=== PATIENT | female | born 1960 | race Caucasian/White ===

== ENCOUNTER 2019-12-07 02:26 | Inpatient (IN) | payer OTHER, SELFPAY ==
[2019-12-07] VITALS (47 sets, daily range): BP systolic 112–173; BP diastolic 69–116; PULSE 71–141; RESP 18–34; TEMP 36.4–37.4; O2SAT 86–98; BMI 40.7; BMI 39.9; BMI 40.0; BMI 40.6
--- NOTE | 2019-12-07 02:44 | EKG12_ITS ---
Test Reason : CP Blood Pressure : / mmHG Vent. Rate : 128 BPM Atrial Rate : 153 BPM P-R Int : 000 ms QRS Dur : 076 ms QT Int : 310 ms P-R-T Axes : 000 028 029 degrees QTc Int : 452 ms Atrial fibrillation with rapid ventricular response Low voltage QRS Anterior infarct , possibly acute ACUTE SC / STEMI Abnormal ECG Confirmed by BLANKA CASTREJON, JOSE ([id number]), video editor EMIL SALDANA ([id number]) on 12/08/2019 10:04:05 AM Referred By: Drake Burt Confirmed By:JOSE MOSCOSO MD
--- NOTE | 2019-12-07 02:44 | RAD_ITS ---
STUDY: X-RAY CHEST REASON FOR EXAM: Female, 59 years old. CHEST PAIN -- STEMI TECHNIQUE: Single AP portable view of the chest. COMPARISON: None. FINDINGS: The lungs are normally expanded with fullness of the central vessels which may indicate mild vascular congestion. There is no demonstrated pleural abnormality. There is borderline cardiomegaly. Normal mediastinum and renae. Normal visualized pulmonary arteries. Normal visualized aortic arch and descending thoracic aorta. There are diffuse degenerative changes of the visualized thoracic spine. Normal visualized ribs, clavicles, and shoulders. There is no demonstrated abnormality of the visualized soft tissue structures of the upper abdomen. RAD/Chest 1 View (Portable) IMPRESSION: Possible mild vascular congestion, otherwise no acute process identified. Electronically Signed: Ronda Cooper MD at 3:27 EST , Service support ,
[2019-12-07] MEDS: Aspirin 81 MG TAB.CHEW 324 MG PO (02:49)
--- NOTE | 2019-12-07 02:49 | ED.VIS.CHEST ---
History of Present Illness Chief Complaint: Chest Pain Informant: Patient Onset: Today Activity at onset: Sleep Quality: Heaviness, Tightness Narrative: Patient is a 59-year-old female with no past medical history presenting with chest pain. Patient was seen in the ER as her family member is in the TCU. She woke him from sleep because she was having chest pain. Patient states it feels like there is a band around her chest and tightness. She also has no associated headache. She states that she has some discomfort in her jaw. States she never felt anything like this before. She threw up once prior to arrival. She was taken by nursing staff from the TCU to the emergency room. Patient denies any other complaints at this time. She denies any history of hypertension, diabetes, high cholesterol or heart attack Past Medical History - Allergies and Home Meds Allergies/Adverse Reactions: Allergies No Known Allergies Allergy (Verified 12/07/19 02:32) Past Medical History: None Surgical History: noncontributory Smoking Status: Never smoker Review of Systems General: Denies: Chills, Fever, Sweats Eyes: Denies: Visual changes - bilaterally, Diplopia ENT: Denies: Rhinorrhea, Sore throat Cardiovascular: Reports: Chest pain. Denies: Palpitations, Heart racing Respiratory: Reports: Dyspnea. Denies: Cough, Dyspnea on exertion Gastrointestinal: Denies: Abdominal pain, Nausea, Vomiting, Diarrhea, Melena, Hematochezia Genitourinary: Denies: Dysuria, Hematuria, Frequency Musculoskeletal: Denies: Back pain, Extremity Pain Skin: Denies: Rash, Wounds Neurological: Denies: Headache, Weakness, Numbness Physical Exam Vital Signs/Narrative: Vital Signs Temp Pulse Resp BP Pulse Ox 12/07/19 02:36 124 H 24 H 165/116 H 93 12/07/19 02:28 97.6 F L 121 H 20 H 173/110 H 96 Inital Vital Signs reviewed: Yes General: Well nourished, Well developed, Obese, No Acute Distress Head: Normocephalic, Atraumatic Eyes: Perrl, EOMI ENT: Moist mucous membranes, No rhinorrhea Neck: Supple, Nontender, No JVD Cardiovascular: Regular rate, Regular rhythm, No murmurs Respiratory: No distress, CTA bilaterally, Chest nontender Abdomen: Soft, Nontender, Nondistended, Normal bowel sounds, No masses Back: Nontender, Normal Inspection Extremities: Nontender, No edema Skin: Normal color, No rash. Negative for: Diaphoresis Neurological: Alert, Oriented x3, Cranial nerves II-XII grossly intact, Normal Strength, Normal Sensation Psychological: Normal affect, Normal Mood Diagnostic/Tx/Re-eval Chest X-Ray - ED: 1 View, Read by ED Physician, Read by Radiologist, No Acute Disease Clinical Impression(s) from Imaging Studies Chest X-Ray 12/07/19 02:44 IMPRESSION: Possible mild vascular congestion, otherwise no acute process identified. Electronically Signed: Ronda Cooper MD at 3:27 EST , Service support , Laboratory Data 12/07/19 12/07/19 12/07/19 02:35 02:35 02:35 WBC 9.2 RBC 4.77 Hgb 14.5 Hct 42.9 MCV 89.9 MCH 30.4 MCHC 33.8 RDW Std Deviation 41.6 RDW Coeff of Elsa 12.6 Plt Count 277 MPV 10.2 Immature Gran % (Auto) 0.300 Neut % (Auto) 61.0 Lymph % (Auto) 29.7 [place] % (Auto) 6.4 Eos % (Auto) 1.9 Baso % (Auto) 0.7 Absolute Neuts (auto) 5.6 Absolute Lymphs (auto) 2.72 Nucleated RBC % 0 PT 13.5 INR 1.1 APTT 25.8 Sodium 141 Potassium 3.5 Chloride 108 H Carbon Dioxide 26.0 Anion Gap 7 BUN 9 Creatinine 0.76 Estim Creat Clear Calc 76.45 Est GFR (MDRD) Af Amer 101 Est GFR (MDRD) Non-Af 83 BUN/Creatinine Ratio 11.8 Glucose 148 H Calcium 8.8 Troponin I 1.620 H* - Rhythm Strip Rhythm Strip: A-fib Rate: 128 Ectopy: None - EKG Initial EKG Interpretation: Atrial Fibrillation, - - Atriral Fibrillation with RVR at a rate of 128 Normal QRS QTc 452 ST elevation in V4 to through V4 There is no reciprocal ST segment changes No prior EKG available for comparison Treatment: Aspirin, Beta Kevin IV - Medical Decision Making Patient is evaluated for sudden onset of chest pain. She appears nontoxic and in no acute distress. She is in atrial fibrillation with RVR. EKG shows ST segment elevations in V2 through V4. She does not have any reciprocal changes I am concerned that this could be all rate related change. Did call cardiology on-call, Dr. Burt, who felt that this could represent a Tocco Subu cardiomyopathy but did recommend taking patient to the Brokerage Manager for emergent catheterization. At this point STEMI alert is called. Patient is ordered to heparin and Brilinta. She is also ordered metoprolol for rate control pending adequate blood pressure. Patient is agreeable with this plan. She is stable in the emergency room. ED Disposition - Plan for ED Patient: Disposition: Acute Care Hospital [facility] Diagnosis: STEMI (ST elevation myocardial infarction)
[2019-12-07] MEDS: Heparin Injection (Vial) 5,000 UNIT/ML VIAL 6870 UNIT IV (02:51)
[2019-12-07 02:52] LABS: Absolute Lymphocyte Count 2.72 X10^3/uL (0.83-4.51); Absolute Neutrophil Count 5.6 X10^3/uL (2.0-7.7); Basophil# 0.06 X10^3/uL; Basophil% 0.7 % (0-1); Eosinophil# 0.17 X10^3/uL; Eosinophils% 1.9 % (0-5); Hematocrit 42.9 % (37-47); Hemoglobin 14.5 g/dL (12.0-15.0); Lymphocyte # 2.72 X10^3/ul (4.0); Lymphocyte % 29.7 % (19-41); Mean Corp Hgb Conc 33.8 g/dL (32-36); Mean Corpuscular Hgb 30.4 pg (27.0-32.0); Mean Corpuscular Volume 89.9 fL (81-99); Mean Platelet Vol. 10.2 fl (6.2-12.0); Monocyte# 0.59 X10^3/uL; Monocyte% 6.4 % (0-10); NRBC Flagged by Analyzer 0 % (0-5); Neutrophil # 5.59 X10^3/uL (2.7-7.7); Platelet Count 277 K/mm3 (150-450); RBC Distribution Width CV 12.6 % (11.6-14.6); RBC Distribution Width SD 41.6 fl (35.1-43.9); Red Blood Count 4.77 M/mm3 (4.2-5.4); White Blood Count 9.2 K/mm3 (4.4-11.0)
[2019-12-07] MEDS: TICAGRELOR 90 MG TABLET 180 MG PO (02:52)
[2019-12-07] MEDS: Metoprolol Tartrate 5 MG/5 ML Vial IV (02:54)
[2019-12-07 02:58] LABS: International Normalized Ratio 1.1; Partial Thromboplast Time 25.8 Seconds (24.1-36.2); Prothrombin Time (Protime)PT. 13.5 SECONDS (11.7-14.9)
[2019-12-07] MEDS: Nitroglycerin SL (ED/IMG/CATH) 0.4 MG TABLET SUBLINGUAL ×2 (03:05→03:10)
[2019-12-07 03:14] LABS: Anion Gap 7 (5-15); BUN 9 mg/dL (7-18); BUN/Creat Ratio 11.8 RATIO (10-20); Calcium,Total 8.8 mg/dL (8.5-10.1); Chloride 108 mmol/L (98-107); Creatinine, Serum 0.76 mg/dL (0.55-1.02); EST Glomerular Filtration Rate 83 mL/min (>60); Est Glom Filt Rate - Afr Amer 101 mL/min (>60); Estimated Creatinine Clearance 76.45 ml/min; Glucose 148 mg/dL (74-106); Potassium 3.5 mmol/L (3.5-5.1); Sodium Level 141 mmol/L (136-145)
--- NOTE | 2019-12-07 04:30 | EKG12_ITS ---
Test Reason : AM Blood Pressure : / mmHG Vent. Rate : 075 BPM Atrial Rate : 075 BPM P-R Int : 178 ms QRS Dur : 080 ms QT Int : 432 ms P-R-T Axes : 037 059 207 degrees QTc Int : 482 ms Poor data quality, interpretation may be adversely affected Normal sinus rhythm Low voltage QRS T wave abnormality, consider inferolateral ischemia Abnormal ECG When compared with ECG of 08-DEC-2019 06:35, MANUAL COMPARISON REQUIRED, DATA IS UNCONFIRMED Confirmed by CRISTOBAL CASTREJON, KATRIN ([id number]), social media editor EMIL SALDANA ([id number]) on 12/10/2019 2:38:34 PM Referred By: Drake Burt Confirmed By:ESTEBAN BURT MD
--- NOTE | 2019-12-07 04:33 | PCM.CONS.C ---
Problem List (1) STEMI (ST elevation myocardial infarction) Status: Acute Reason for Consult Date of Consultation: 12/07/19 Reason for Consultation: stemi History of Present Illness: Patient is a 59-year-old female with no past medical history presenting with chest pain. Patient was seen in the ER as her family member is in the TCU. She woke him from sleep because she was having chest pain. Patient states it feels like there is a band around her chest and tightness. She also has no associated headache. She states that she has some discomfort in her jaw. States she never felt anything like this before. She threw up once prior to arrival. She was taken by nursing staff from the TCU to the emergency room. Patient denies any other complaints at this time. She denies any history of hypertension, diabetes, high cholesterol or heart attack. In the ER an EKG showed A. fib with RVR and ST elevation in the anterior leads suspicious for anterior ST elevation [place]. STEMI alert was then called and patient was taken emergently to the [facility]. Patient was evaluated prior to the cardiac catheterization. She was having ongoing chest pain. Coronary angiography revealed 100% occlusion of the mid LAD that was treated with thrombectomy and drug-eluting stent placement. She has an EF of around 25 to 30% at this time. She has residual 60 to 70% stenosis in the RCA. Patient is chest pain-free at the end of the procedure. Review of systems: All systems reviewed. All else is negative except that in the HPI. Past Medical History Allergies/Adverse Reactions: Allergies No Known Allergies Allergy (Verified 12/07/19 02:32) Home Medications: Ambulatory Orders Medication Instructions Recorded NK 12/07/19 Surgical History: noncontributory Smoking Status: Never smoker Tobacco Use: Non-smoker Objective: Vital Signs Temp Pulse Resp BP Pulse Ox 97.6 F L 112 H 25 H 158/105 H 90 12/07/19 02:28 12/07/19 03:11 12/07/19 03:11 12/07/19 03:10 12/07/19 03:11 Oxygen Flow Rate (L/min) 5 Oxygen Delivery Method Nasal Cannula Weight: 252 lb 6.868 oz Body Mass Index (BMI) 40.7 General: Awake, Alert, Oriented x 3 HEENT: Atraumatic Oral: Moist Mucosa Neck: Supple Lungs: Clear to auscultation Cardiovascular: Irregular Rhythm Abdomen: Soft, Obese Extremities: No edema Skin: No Rashes Psych/Mental Status: Appropriate 12/07/19 02:35: WBC 9.2, RBC 4.77, Hgb 14.5, Hct 42.9, MCV 89.9, MCH 30.4, MCHC 33.8, Plt Count 277, MPV 10.2, Immature Gran % (Auto) 0.300, Neut % (Auto) 61.0, Lymph % (Auto) 29.7, [place] % (Auto) 6.4, Eos % (Auto) 1.9, Baso % (Auto) 0.7, Absolute Neuts (auto) 5.6, Nucleated RBC % 0 12/07/19 02:35: PT 13.5, INR 1.1, APTT 25.8 12/07/19 02:35: Sodium 141, Potassium 3.5, Chloride 108 H, Carbon Dioxide 26.0, Anion Gap 7, BUN 9, Creatinine 0.76, Est GFR (MDRD) Af Amer 101, Est GFR (MDRD) Non-Af 83, BUN/Creatinine Ratio 11.8, Glucose 148 H, Calcium 8.8, Troponin I 1.620 H* Rhythm: EKG: ECHO: Stress Test: Cardiac Cath: PCI: CT Surgery: Holter monitor: EPS: PPM: CXR: Chest CT Scan: Assessment/Plan 1. Chest pain: EKG was suggestive of anterior ST elevation [place] and emergent coronary angiography revealed 100% occlusion of the LAD that was treated with thrombectomy and drug-eluting stent placement. We will keep the patient on aspirin and Brilinta. We will also add Lipitor, lisinopril and Coreg. 2. LV dysfunction: In the setting of acute OH. Patient presented fairly early. We will start Coreg and lisinopril. 3. A. fib: Newly diagnosed A. fib. We are starting the patient on a beta-dania. At this time she is going to be on aspirin and Brilinta. She may end up needing triple therapy. If that is the case then we will switch from Brilinta to Plavix. 4. 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 As an outpatient we may consider a stress test to evaluate this lesion. Critical care time spent taking care of this patient excluding procedure time is 35 minutes.
--- NOTE | 2019-12-07 04:43 | HP.PCM_ITS ---
Problem List (1) Morbid (severe) obesity due to excess calories Status: Acute (2) STEMI (ST elevation myocardial infarction) Status: Acute History of Present Illness Date of Admission: 12/07/19 Chief Complaint: CHEST PAIN The patient was seen after patient had returned from [facility] and have had a stent placed in her LAD The patient is a 59 year old F with history of morbid obesity who presented with chest pain. Patient was sleeping at the hospital in her 's room at the transitional care unit of [facility]. Patient had excruciating left-sided chest pain that woke her up from her sleep. She described the pain as a tightness and band-like. The pain went into her bilateral arms. She denies any aggravating or ameliorating factors. The pain was episodic. Associa debby with her symptoms was nausea, vomiting and malaise. She was was sent to the emergency department where EKG showed ST elevation in anterior leads. Also she had A. fib with RVR. Troponin was elevated. Patient was given aspirin, Brilinta, heparin and nitroglycerin. STEMI alert was called and patient was sent to the cardiac lab. sustainable design coordinator reported that patient had 100% blockage in LAD and a stent was placed in LAD. Also she had CAD 60- 70% stenosis in RCA; and left ventricular dysfunction. Past Medical History Medical History: Medical History (Last Updated 12/07/19 @ 05:35 by Stanford Knutson MD) Morbid obesity E66.01 Allergies No Known Allergies Allergy (Verified 12/07/19 02:32) Home Medications: Ambulatory Orders Medication Instructions Recorded NK 12/07/19 Surgical History: - - Surgery in right ankle where she had screws and plate placed. Lives: Spouse/ Significant Other Smoking Status: Never smoker Tobacco Use: Non-smoker Alcohol: None - *Family History Sibling History Items: Heart Disease - Brother had a stent; and CABG Maternal History Items: Cancer Paternal History Items: Cancer Review of Systems Constitutional: Reports: Malaise. Denies: Chills, Fever, Weight Change HEENT: Denies: Head Aches, Sinus Congestion, Sinus Drainage Cardiovascular: Reports: Chest Pain. Denies: Palpitations Respiratory: Denies: Cough, Shortness of breath at rest, Sputum production Gastrointestinal: Reports: Nausea, Vomiting. Denies: Abdominal Pain Genitourinary: Denies: Dysuria Musculoskeletal: Denies: Joint Pain, Joint Tenderness Skin: Denies: Rash, Wounds Neurological: Denies: Numbness, Tingling, Focal weakness Psychiatric: Denies: Anxiety, Depression, Homicidal Ideations, Suicidal Ideations Hematologic/ Lymphatic: Denies: Easy Bruising, Easy Bleeding VTE Information - Inpt Only VTE Present on Admission: No VTE Mechan Device Prophylaxis: None VTE Pharm Prophylaxis ordered?: No Reason prophylaxis not ordered:: Treatment Not Indicated - Received heparin for ST elevation [place] Patient Problems: Active and Suspected Problems STEMI (ST elevation myocardial infarction) (Acute) Morbid (severe) obesity due to excess calories (Acute) - Physical Exam Vitals/I&O's: Vital Signs Temp Pulse Resp BP Pulse Ox 97.6 F L 112 H 25 H 158/105 H 90 12/07/19 02:28 12/07/19 03:11 12/07/19 03:11 12/07/19 03:10 12/07/19 03:11 Oxygen Flow Rate (L/min) 5 Oxygen Delivery Method Nasal Cannula Weight: 114.5 kg Body Mass Index (BMI) 40.7 General: Alert, Oriented x3, Cooperative HEENT: Atraumatic, PERRLA, EOMI, Normocephalic Neck: Supple, No JVD, Negative Carotid Bruits Lungs: Clear to auscultation, Normal air movement Cardiovascular: Regular rate, No murmurs Abdomen: Bowel Sounds Present, Soft, Non Tender Extremities: No edema, Capillary Refill Less than 3 Seconds Skin: No rashes, No breakdown Musculoskeletal: No Tenderness to Palpation of Joints or Extremities Neurological: Cranial nerves II-XII grossly intact Psych/Mental Status: Normal Affect, Appropriate Laboratory Results 12/07/19 02:35: WBC 9.2, RBC 4.77, Hgb 14.5, Hct 42.9, MCV 89.9, MCH 30.4, MCHC 33.8, RDW Std Deviation 41.6, RDW Coeff of Elsa 12.6, Plt Count 277, MPV 10.2, Immature Gran % (Auto) 0.300, Neut % (Auto) 61.0, Lymph % (Auto) 29.7, [place] % (Auto) 6.4, Eos % (Auto) 1.9, Baso % (Auto) 0.7, Absolute Neuts (auto) 5.6, Absolute Lymphs (auto) 2.72, Nucleated RBC % 0 12/07/19 02:35: PT 13.5, INR 1.1, APTT 25.8 12/07/19 02:35: Sodium 141, Potassium 3.5, Chloride 108 H, Carbon Dioxide 26.0, Anion Gap 7, BUN 9, Creatinine 0.76, Estim Creat Clear Calc 76.45, Est GFR (MDRD) Af Amer 101, Est GFR (MDRD) Non-Af 83, BUN/Creatinine Ratio 11.8, Glucose 148 H, Calcium 8.8, Troponin I 1.620 H* Current Medications Aspirin (Ecotrin) 81 mg PO DAILY@0800 [facility] Atorvastatin Calcium (Lipitor) 40 mg PO QHS [facility] Atropine Sulfate () 0.5 mg IV UD PRN PRN Reason: HR <50 bpm Carvedilol (Coreg) 3.125 mg PO BID [facility] Heparin Sodium (Beef Lung) (Heparin 500 Unit/5 Ml (100/Ml)) 500 unit IV UD PRN PRN Reason: HEPARIN FLUSH Sodium Chloride () 1,000 mls @ 50 mls/hr IV .Q20H [facility] Eptifibatide (Integrilin) 75 mg in 100 mls @ 18.32 mls/hr CONT INF .Q5H28M [facility] Stop: 12/07/19 06:00 Labetalol HCl (Trandate) 5 mg IV X1 PRN PRN Reason: FOR SYSTOLIC PRESSURE > 160 Lisinopril (Zestril) 2.5 mg PO DAILY [facility] Sodium Chloride () 500 ml IV BOLUS PRN PRN Reason: VASO-VAGAL PROTOCOL Ticagrelor (Brilinta) 90 mg PO BID [facility] Assessment/Plan All Active Problems STEMI (ST elevation myocardial infarction) (Acute) Morbid (severe) obesity due to excess calories (Acute) The patient is a 59 year old F with history of morbid obesity who presented with chest pain to have elevated troponin; with and ST elevation [place] for which reason she was taken to the cardiac lab and a stent placed. ST elevation [place] Place on a critical care bed at the ICU post stent placement in the LAD. CXR independently reviewed confirms vascular congestion. She was independently reviewed and agree radiologist interpretation. EKG independently reviewed confirms ST elevation in anterior leads which improved after stent placement. ASA 81 mg p.o. daily We will check lipid panel. Statin: Lipitor 40 mg p.o. nightly Anti-P2Y12 Receptor antibody: Plavix continued Glycoprotein IIb/IIIa inhibitors: Integrilin per cardiology orders Lisinopril and Coreg ordered Serial cardiac enzymes Stat EKG as needed for chest pain Atrial Fibrillation. Received IV metoprolol at the emergency department. Placed on Coreg by cardiology. TSH and magnesium ordered. Systolic Heart Failure At cardiac catheterization showed EF was around 25% to 30%. Started on Lisinopril and Coreg. DVT prophylaxis Received Heparin on 12/07/2019. Consider further chemical thromboprophylaxis as necessary. Advance care planning including the explanation and discussion of advanced dir ective [id number] with the patient. Patient at this time elects to be full code at this time. However patient does not want to be left on life support for long. Discussed with patient that we will get case management to help patient draft advanced directive. Time spent in advance care planning discussion was 20 minutes. Code Visit Inpatient E&M: 12411 Init Hosp L3 Procedures: 58096 Advncd Care Plan 30 Min
[2019-12-07] MEDS: 0.9% Normal Saline 1,000 ML 50 ML IV (05:00)
[2019-12-07 05:01] LABS: Hematocrit 40.4 % (37-47); Hemoglobin 13.9 g/dL (12.0-15.0); Mean Corp Hgb Conc 34.4 g/dL (32-36); Mean Corpuscular Hgb 30.5 pg (27.0-32.0); Mean Corpuscular Volume 88.8 fL (81-99); Mean Platelet Vol. 10.2 fl (6.2-12.0); Platelet Count 270 K/mm3 (150-450); RBC Distribution Width CV 12.5 % (11.6-14.6); RBC Distribution Width SD 40.9 fl (35.1-43.9); Red Blood Count 4.55 M/mm3 (4.2-5.4); White Blood Count 10.7 K/mm3 (4.4-11.0)
[2019-12-07 05:20] LABS: ALB/GLOB Ratio 0.9 RATIO (0.9-2.4); AST(SGOT) 247 U/L (15-37); Alanine Aminotransfer ALT/SGPT 81 U/L (13-56); Albumin, Serum 3.5 g/dL (3.2-5.0); Alkaline Phosphatase 80 U/L (45-117); Anion Gap 6 (5-15); BUN 7 mg/dL (7-18); BUN/Creat Ratio 9.8 RATIO (10-20); Calcium,Total 8.3 mg/dL (8.5-10.1); Chloride 107 mmol/L (98-107); Creatinine, Serum 0.72 mg/dL (0.55-1.02); EST Glomerular Filtration Rate 89 mL/min (>60); Est Glom Filt Rate - Afr Amer 108 mL/min (>60); Globulin 3.7 g/dL (2.2-4.2); Glucose 138 mg/dL (74-106); Potassium 3.5 mmol/L (3.5-5.1); Protein, Total 7.2 g/dL (6.4-8.2); Sodium Level 138 mmol/L (136-145)
[2019-12-07 06:08] LABS: Cholesterol 198 mg/dL (200); High Density Lipoprotein 49 mg/dL; Magnesium 1.8 mg/dL (1.6-2.6); Triglycerides 65 mg/dL; Very Low Density Lipoprotein 13 mg/dL (5-40)
--- NOTE | 2019-12-07 06:19 | EKG12_ITS ---
Test Reason : AM Blood Pressure : / mmHG Vent. Rate : 091 BPM Atrial Rate : 091 BPM P-R Int : 176 ms QRS Dur : 072 ms QT Int : 384 ms P-R-T Axes : 059 069 166 degrees QTc Int : 472 ms Normal sinus rhythm Low voltage QRS T wave abnormality, consider lateral ischemia Abnormal ECG When compared with ECG of 07-DEC-2019 06:20, MANUAL COMPARISON REQUIRED, DATA IS UNCONFIRMED Confirmed by CRISTOBAL CASTREJON, KATRIN ([id number]), publishing editor EMIL SALDANA ([id number]) on 12/10/2019 2:56:51 PM Referred By: Drake Burt Confirmed By:ESTEBAN BURT MD
[2019-12-07] MEDS: Nitroglycerin (INPATIENT USE) 0.4 MG TAB.SUBL SUBLINGUAL (06:25)
--- NOTE | 2019-12-07 07:25 | ECHOCS_ITS ---
Reason For Study: CP Procedure This was a 2D Doppler, Color Flow transthoracic echocardiogram. The study was technically difficult. Contrast injection was performed. Echo done post Cath on 12/07/2019. Patient was off of bed rest. Exam performed portable in ICU/CCU. Left Ventricle Mildly dilated left ventricle. The estimated ejection fraction is 30 %. There is evidence of diastolic dysfunction. Hypokinesis of the apex, anterior wall and septum. Right Ventricle Normal RV size. Normal systolic function. Atria Normal left atrium. Normal right atrium. No doppler evidence for ASD. Mitral Valve There is no mitral valve stenosis. No mitral valve insufficiency. Tricuspid Valve There is no tricuspid stenosis. Trivial tricuspid valve insufficiency. Pulmonary artery systolic pressure is 45 mmHg. Aortic Valve Trisinus/trileaflet aortic valve. There is no aortic stenosis. No aortic valve insufficiency. Pulmonic Valve There is no pulmonic valvular stenosis. No pulmonic valve insufficiency. Great Vessels Normal aortic root. Pericardium/Pleural No pericardial effusion. Medication Diluted definity 4ml given slow IV push to enhance endocardial definition. MMode/2D Measurements & Calculations LVIDd: 4.4 cm IVSd: 1.0 cm LA dimension: 3.5 cm LVIDs: 3.5 cm LVPWd: 0.90 cm RVDd: 3.1 cm FS: 21.6 % LAV(MOD-bp): 40.2 ml LVAd ap4: 30.5 cm2 SV(MOD-sp4): 36.5 ml LAV(MOD-bp) Indexed: 18.4 ml/m2 EDV(MOD-sp4): 108.6 ml LAV(MOD-sp2): 43.7 ml EDV(sp4-el): 112.0 ml LAV(MOD-sp4): 35.3 ml LVAs ap4: 24.5 cm2 ESV(MOD-sp4): 72.1 ml ESV(sp4-el): 74.6 ml EF(MOD-sp4): 33.6 % EF(sp4-el): 33.4 % SV(sp4-el): 37.5 ml LA A4 area: 14.4 cm2 RA A4 area: 10.7 cm2 Doppler Measurements & Calculations MV E max danae: 109.3 cm/sec Ao V2 max: 104.8 cm/sec LV V1 max: 74.4 cm/sec Ao max P.4 mmHg LV V1 max P.2 mmHg PA V2 max: 76.6 cm/sec TR max danae: 319.3 cm/sec TR max P.8 mmHg Interpretation Summary The estimated ejection fraction is 30 %. There is evidence of diastolic dysfunction. Hypokinesis of the apex, anterior wall and septum. Trivial tricuspid valve insufficiency. Ordering Physician: Leslie Nguyen Referring Physician: Drake Burt Performed By: Nahum Romero RCS
--- NOTE | 2019-12-07 08:38 | CRPHASE1 ---
Patient Communication PHII Cardiac Rehab Discussed with Patient:: Yes Guide to Cardiac Rehab Given to Patient:: Yes Cardiac Rehab Facility Choice List Given to Patient:: Yes Choice Program [facility] CR PHII:: Communication Given to CR, Refer to [employer] Risk Factors/Lifestyle Smoking Status: Never smoker Hx Hypertension: No Hx Diabetes Mellitus Type 1: No Hx Dyslipidemia: No Hx Obesity: Yes - BMI 40.6 Height: 5 ft 6 in Weight:: 252 lb BMI: 40.6 Stress: Recent, Long-standing - IN TRANSITIONAL CARE UNIT, ILL SINCE [place] ETOH: No Family History: Cancer Laboratory Values: Cardiac Rehab Phase I Labs Triglycerides 65 mg/dL (-199) 12/07/19 04:55 Cholesterol 198 mg/dL (200) 12/07/19 04:55 LDL Cholesterol 136 mg/dL (0-130) H 12/07/19 04:55 HDL Cholesterol 49 mg/dL (40-) 12/07/19 04:55 Phase I Education Given On:: [place], Nutrition, Antiplatelet medication, CHF, Smoking cessation, Diabetes - Type I, Diabetes - Type II Knowledge of Condition:: No Hospital Course Pain Description: Tightness - TIGHTNESS,BAND-LIKE Medical/Surgical History OK:: Yes Angina:: Yes CAD:: Yes Pulmonary:: No COPD:: No Asthma:: No Diabetes:: No Hypertension:: No Dyslipidemia:: No Arrhythmias:: Yes - ATRIAL FIBRILLATION IN ER PE:: No DVT:: No PVD:: No PAD:: No GERD:: No Cancer:: No Renal:: No Thyroid:: No Depression:: No Anxiety:: No CABG: No PTCA:: Yes - STENT X1 LAD ICD:: No Pacemaker:: No Discharge/Home/Social Eval Discharge Disposition: Home Marital Status: Patient Lives With:: WHO IS IN TRANSITIONAL CARE AT PRESENT IN [facility] Cardiac Rehabilitation Info Cardiac Rehabilitation Program Information: Cardiac Rehabilitation is important for patients like you who are recovering from a heart problem. Cardiac rehabilitation programs are recognized as integral to the continued care of the patient with coronary heart disease. The cardiac rehabilitation program is designed to optimize a patient's physical, psychological, and social functioning. Health care mgr work in cardiac rehabilitation programs and assist you with getting the treatments you need to get stronger and healthier - like exercise, healthy eating habits, and medications. Cardiac rehabilitation has been show to help people with heart problems live longer and have better life enjoyment than people who do not go to cardiac rehabilitation. Please contact the Cardiac Rehabilitation Program at [facility] at in two weeks if you have not heard from them.
--- NOTE | 2019-12-07 08:43 | CRPH1.INSTRU ---
General Education CAD and cardiac anatomy and function:: Not instructed Explanation of diagnoses and procedures:: Not instructed Sign/Symptoms of AK:: Not instructed Antiplatelet therapy: Not instructed Proper use of NTG-SL: Not instructed Emergency procedures and activation of EMS: Not instructed Compliance of all prescribed medications: Not instructed Smoking Patient Nicotine/Smoking Risk Factors Are:: Never smoked Dyslipidemia Patient Dyslipidemia Risk Factors Are:: Total Cholesterol - 198, Triglycerides - 65, HDL - 49, LDL - 136 Dyslipidemia Response Code:: Not instructed Overweight/Obesity Patient Overweight/Obesity Risk Factors Are:: Obesity - > or = 30 - BMI 40.6 Recommendations Include:: Weight loss of 5-10%, Reduced calorie diet, Exercise 5-7 times/week Overweight/Obesity:: Not instructed Hypertension Patient Hypertension Risk Factors Are:: No documented hx of HTN Heart Disease Heart Disease Response Code:: Not instructed Diabetes Patient Diabetes Risk Factors Are:: No documented hx of diabetes Metabolic Syndrome Metabolic Syndrome Response Code:: Not instructed Sedentary Patient Sedentary Risk Factors Are:: Lack of regular exercise Sedentary Response Code:: Not instructed Stress Stress Response Code:: Patient communicates acknowledgment - PT SPOKE OF HER HUSBANDS HX OF [place] AND JEET DE LA FUENTE, IN TRANSITIONAL CARE AT PRESENT
[2019-12-07] MEDS: Carvedilol 3.125 MG TABLET PO ×2 (09:16→12:06)
--- NOTE | 2019-12-07 09:45 | PCM.PN.BLA ---
Progress Note 59 y/o with no significant PMHx who was admitted with complaisn of chest pain that happened whilst visiting her in TCU. Patient was found to be in A. fib with RVR and ST elevation in anterior leads. She underwent emergent cardiac catheterization and findings showed 100% occlusion of mid LAD. She received thrombectomy and NATI placement. She did have residual 60-70% stenosis in the RCA. Her EF was reported at 25 to 30%. She was also found to be in A. fib with RVR, and is on Coreg Seen and examined. Remains chest pain free Syill in RVR on telemetry, given another dose of Coreg 3.125mg x 1, increased Coreg to 6.25mg BID 2D-ECHo pending, Continue on aspirin, Brilinta, Coreg Patient has a cough -lisinopril has been held for now, no nasal congestion no fever or chills Suggest trial of Flonase Re-assess in a.m. STROKE Vital Signs/Narrative: Vital Signs Pulse Resp BP Pulse Ox 12/07/19 07:15 117 H 25 H 128/97 H 92 12/07/19 07:00 118 H 32 H 136/96 H 95 12/07/19 06:45 116 H 24 H 114/80 94 12/07/19 06:30 104 H 28 H 117/77 92 12/07/19 06:25 108 H 136/93 H 12/07/19 06:15 125 H 25 H 136/93 H 93 12/07/19 06:01 108 H 28 H 129/91 H 95
--- NOTE | 2019-12-07 11:18 | CL.I_ITS ---
Patient Name: NICOLAS VANG Study Date: 12/07/2019 Performing: Jhony Burt MD Ht: 66 inches 168 cm : 1960 Wt: 253.9 lbs 115 kg Age: 59 Gender: female BSA: 2.22 PROCEDURE(S) PERFORMED DA76-OHS/COR/LV XH53-OSJ, NATI AND/OR PTCA, ARTERY OR GRAFT, SINGLE VESSEL CLINICAL PROFILE AND CO-MORBIDITIES Indications: ACS <= 24 hrs Heart Failure: None Stress/Imaging Stress/Image Study Performed: No CAD Presentations: STEMI. Symptom onset Date/Time: 12/07/19 Time Not Available CONCLUSIONS CAD as described. Severe LV dysfunction with EF of 25-30% with regional wall motion abnormalities as descvribed. No significant or MR. Successful thrombectomy and NATI to LAD as described RECOMMENDATIONS ASA Indefinitley Brilinta or plavix for at least 12 months Follow up with primary cager operator Consider stress testing to evaluate significance of RCA lesion if patient is asymptomatic or PCI if s ymptomatic. DESCRIPTION OF PROCEDURE The patient arrived to the procedure lab. The risks and benefits of the procedure as well as a full d escription of our services here and lack of surgical backup were fully explained to the patient and/o r their significant other prior to the catheterization. The Timeout was completed, verifying the jordan ect patient and procedure. The patient's procedural site was prepped and draped in the usual fashion. Local anesthetic was given subcutaneously to right radial region with Lidocaine 2%. Using a modified Seldinger technique, arterial access was obtained via the right radial artery, a 6Fr sheath was inse rted.. Right Coronary Artery selective angiography was then performed in multiple views using a 5 Fr . JR 4 catheter. Left Ventriculography was performed in BRYAN projection using a 5 Fr. JR 4. LV to AO p ullback pressures were then recorded XB 3.0 Guide catheter was inserted and engaged into the LCA. [place] AP inserted Pass # 1 [place] A P Removed Angiogram performed post [place] Emerge 2.00x15 Balloon catheter was inserted. PTCA balloon inflated at 8 atms for 22 secs. Angiogram performed post balloon dilatation. Synergy 2.25x20 Drug Elu ting stent was inserted. Angiogram performed post stent deployment. The arterial sheath was pulled and a TR Band was applied for hemostasis w/12ml air CORONARY ANGIOGRAPHY DOMINANCE: Right Dominant LEFT HEART ASSESSMENT Left Ventricular Ejection Fraction: by LV Gram 25-30 % Abnormal LV wall motion. Hypokinesis of the anterior wall and apex. LEFT MAIN: 30 % Stenosis LEFT ANTERIOR DESCENDING ARTERY: MID LAD: 100 % Stenosis CIRCUMFLEX ARTERY: Mild luminal irregularities RIGHT CORONARY ARTERY: MID RCA: 60-70 % Stenosis VALVE FINDINGS: No Aortic Valve Stenosis No Mitral Insufficency INTERVENTION INFORMATION LESION SITE: LAD (Mid) Lesion Complexity: High/C, chronic total occlusion: No, lesion at bifurcation: No, thrombus present: Yes, lesion length: 18 mm, culprit lesion: Yes, Previously treated lesion: No Pre Stenosis: 100 % Pre intervention JAYDON flow: 0 PROCEDURE: Thrombectomy, Drug Eluting Stent with pre dilatation. Post Stenosis: 0 % Post intervention JAYDON flow: 3 Lesion Devices: Ho .014 BMW [place] Straight 190cm Medtronic 6 Fr. [place] AP Aspiration Catheter Cardinal 6 Fr XB3.0 100cm Guide Catheter Chente Sci EMERGE MR 2.00x15 BALLOON Chente Sci Synergy MR NATI 2.25x20 COMPLICATIONS No Complications PROCEDURE MEDICATIONS Oxygen: 6 L/min via nasal cannula Heparin given IA 12/07/2019 03:45:55 Verapamil 2.5mg, Ntg 100mcgs, 2000 units of Heparin given IA 12/07/2019 03:45:55 SUMMARY OF HEMODYNAMIC DATA Time AIR REST ECG 03:24:32 AO 140/87 (109) SA 03:48:45 LV 114/6, 19 04:09:57 LV 123/8, 22 04:10:03 LVp 121/13, 24 04:10:53 AOp 136/21 (98) 04:10:59 Signed By Jhony Burt MD On 12/07/2019 11:17:54 Jhony Burt MD
--- NOTE | 2019-12-07 12:04 | CASEMGMT ---
RN CM Assessment Presentation: stemi Intro role of CM and purpose of RN CM assessment to patient and her family in room.. Demographics, PCP and Pharmacy verified. Pt spoke at length re: her being in TCU recovering from GBS. states she is very worried about him, and no dc planned soon for him as recovery is slow. Pt has been independent at home, plans to return home on dc. Family is in room and they are supportive, willing to assist pt if needs arise on dc. Daughter states pt can come home with her if needed. Discussed f/u and medications on dc including continuous compliance with cardiac medications and contacting cardiology office if concerns arise re: medications. PCP: Dr. Eric Roe Specialists: Dr. Burt Preferred Pharmacy: [facility],[place] Insurance: [employer] Prescription Benefit: No. Discussed Brilinta savings card for first 30 day free. Cost for Brilinta after this is cost prohibitive if self pay. [place] Brilinta. Prescription placed on front of chart for physician to fill out. LNOK: (in TCU), Daughter Arnold Parks Living Arrangements: Lives in one story home independently. No care concerns @ this time. Transportation: Transportation service DME: none HHC/SNF: none SW Referral: no Patient DC goals: Home DC PLAN: Home. [place] Brilinta [place] started and given to pt to complete. Daughter says she will assist pt with this. Script for physician to complete is on front of chart. Will need faxed to # given when completed. Tunde TUCKER RN ACM
[2019-12-07] MEDS: TICAGRELOR 90 MG TABLET PO ×2 (12:06→20:35)
[2019-12-07] MEDS: Aspirin E.C. 81 MG Tablet PO (12:06)
[2019-12-07] MEDS: Ondansetron 4 MG/2 ML Vial IV (15:14)
[2019-12-07] MEDS: 0.9% Saline Lock 10 ML Syringe IV ×2 (15:15→15:42)
[2019-12-07] MEDS: Acetaminophen 325 MG Tablet 650 MG PO (15:15)
[2019-12-07] MEDS: Metoprolol Tartrate 50 MG Tablet PO ×2 (15:15→20:35)
[2019-12-07] MEDS: Famotidine 200 MG/20 ML MDV 20 MG in 0.9% Normal Saline (Pres. free 8 ML 300 MG IV ×2 (15:42→20:34)
[2019-12-07] MEDS: Digoxin 250 MCG Tablet 500 MCG PO (16:12)
--- NOTE | 2019-12-07 16:54 | CHAPLAIN ---
patient was sleeping at time of attempted visit
[2019-12-07] MEDS: Atorvastatin Calcium 40 MG Tablet PO (20:34)
[2019-12-07] MEDS: Fluticasone 0.05% 1 SPRAY NASAL.SRY NASAL (20:35)
[2019-12-08] VITALS (25 sets, daily range): BP systolic 104–136; BP diastolic 58–80; PULSE 76–104; RESP 14–37; TEMP 36.9–37.9; O2SAT 92–98
--- NOTE | 2019-12-08 04:30 | EKG12_ITS ---
Test Reason : CHESTPAIN Blood Pressure : / mmHG Vent. Rate : 106 BPM Atrial Rate : 081 BPM P-R Int : 000 ms QRS Dur : 078 ms QT Int : 352 ms P-R-T Axes : 000 055 088 degrees QTc Int : 467 ms Atrial fibrillation with premature ventricular or aberrantly conducted complexes Anterior infarct , age undetermined Abnormal ECG When compared with ECG of 07-DEC-2019 04:46, MANUAL COMPARISON REQUIRED, DATA IS UNCONFIRMED Confirmed by CRISTOBAL CASTREJON, KATRIN ([id number]), take up supervisor EMIL SALDANA ([id number]) on 12/10/2019 2:57:22 PM Referred By: Drake Burt Confirmed By:ESTEBAN BURT MD
[2019-12-08 04:31] LABS: Hematocrit 39.7 % (37-47); Hemoglobin 13.4 g/dL (12.0-15.0); Mean Corp Hgb Conc 33.8 g/dL (32-36); Mean Corpuscular Hgb 30.4 pg (27.0-32.0); Mean Platelet Vol. 10.5 fl (6.2-12.0); Platelet Count 261 K/mm3 (150-450); RBC Distribution Width SD 42.8 fl (35.1-43.9); Red Blood Count 4.41 M/mm3 (4.2-5.4); White Blood Count 14.8 K/mm3 (4.4-11.0)
--- NOTE | 2019-12-08 07:32 | RAD_ITS ---
STUDY: X-RAY CHEST REASON FOR EXAM: Female, 59 years old. POST-STEMI, DYSPNEA. TECHNIQUE: Single AP portable view of the chest. COMPARISON: Comparison is made with prior examination dated December 07, 2019. FINDINGS: EKG electrodes are seen. There is evidence of a resting ejection and CHF more prominent in the left lung. There is no demonstrated pleural abnormality. Normal size heart. Normal mediastinum and renae. Normal visualized pulmonary arteries. There is atherosclerotic tortuosity of the aortic arch and descending thoracic aorta. Normal visualized thoracic spine. Normal visualized ribs, clavicles, and shoulders. There is no demonstrated abnormality of the visualized soft tissue structures of the upper abdomen. RAD/Chest 1 View (Portable) IMPRESSION: Mastoid congestion and airspace disease in the left lung suggestive of CHF. Electronically Signed: Andre Álvarez, at 10:51 EST , Service support ,
--- NOTE | 2019-12-08 07:48 | PCM.PN.HOSP ---
Patient Problems: Active and Suspected Problems (Last Updated 12/08/19 @ 08:29 by Candi Keane) History of coronary artery stent placement (Acute) 2.25 x 20 mm Synergy MR NATI to LAD 12/06/19 Atherosclerosis of coronary artery of chitina heart without angina pectoris (Acute) 2.25 x 20 mm Synergy MR NATI to LAD 12/06/19 STEMI (ST elevation myocardial infarction) (Acute) Morbid (severe) obesity due to excess calories (Acute) Reason for Visit: Follow-up on STEMI Subjective: Patient was seen and examined. She complains of persistent cough. Patient was found to be hypoxic overnight requiring 4 L of oxygen now. On telemetry, patient converted to normal sinus rhythm around 7 PM. She denied any more chest pain or dizziness. Objective: Physical exam Vitals/I&O's: Vital Signs Temp Pulse Resp BP Pulse Ox 99.4 F H 82 31 H 118/61 95 12/08/19 04:00 12/08/19 06:00 12/08/19 06:00 12/08/19 06:00 12/08/19 06:00 Oxygen Flow Rate (L/min) 4 Oxygen Delivery Method Nasal Cannula Weight: 111.9 kg Body Mass Index (BMI) 39.9 Intake and Output for Last 24 Hours 12/06/19 12/07/19 12/08/19 23:59 23:59 23:59 Intake Total 1075.14 / 1075.14 50 / 50 Output Total 100 / 100 Balance 975.14 / 975.14 50 / 50 General: Alert, Oriented x3, Cooperative, No apparent distress, - - on 4L oxygen, obese HEENT: Atraumatic, PERRLA, EOMI, Normocephalic Oral: Moist Mucosa Neck: Supple Lungs: Diminished, - - Coarse breath sounds Cardiovascular: Regular rate, Regular Rhythm, Normal S1, Normal S2, No murmurs Abdomen: Bowel Sounds Present, Soft, Non Tender, Non-Distended, No Hepato-splenomegaly Extremities: No edema Skin: No rashes, No breakdown Musculoskeletal: No Tenderness to Palpation of Joints or Extremities Lymphatic: No Cervical, Supraclavicular, or Inguinal Adenopathy Neurological: Cranial nerves II-XII grossly intact, Neuro grossly intact Psych/Mental Status: Normal Affect, Appropriate Laboratory Results 12/08/19 04:05: WBC 14.8 H, RBC 4.41, Hgb 13.4, Hct 39.7, MCV 90.0, MCH 30.4, MCHC 33.8, RDW Std Deviation 42.8, RDW Coeff of Elsa 13.0, Plt Count 261, MPV 10.5 Current Medications Acetaminophen (Tylenol) 650 mg PO Q6H PRN PRN PRN Reason: Pain Score 1-10/10 Last Admin: 12/07/19 15:15 Dose: 650 mg Documented by: Albuterol/Ipratropium (Duoneb) 3 ml INHALATION Q4HWA.RT [facility] Aspirin (Ecotrin) 81 mg PO DAILY@0800 [facility] Last Admin: 12/07/19 12:06 Dose: 81 mg Documented by: Atorvastatin Calcium (Lipitor) 40 mg PO QHS [facility] Last Admin: 12/07/19 20:34 Dose: 40 mg Documented by: Atropine Sulfate () 0.5 mg IV UD PRN PRN Reason: HR <50 bpm Fluticasone Propionate (Flonase Nasal [place]) 1 spray NASAL BID [facility] Last Admin: 12/07/19 20:35 Dose: 1 spray Documented by: Heparin Sodium (Beef Lung) (Heparin 500 Unit/5 Ml (100/Ml)) 500 unit IV UD PRN PRN Reason: HEPARIN FLUSH Sodium Chloride () 250 mls @ 15 mls/hr IV .[id number] PRN PRN Reason: Saline Flush Sodium Chloride () 250 mls @ 15 mls/hr IV .[id number] PRN PRN Reason: Additional IVPB Infusion Famotidine 20 mg/ Sodium (Chloride) 10 mls @ 300 mls/hr IV Q12 [facility] Last Infusion: 12/07/19 20:36 Dose: Infused Documented by: Labetalol HCl (Trandate) 5 mg IV X1 PRN PRN Reason: FOR SYSTOLIC PRESSURE > 160 Magnesium Hydroxide (Milk Of Magnesia) 30 ml PO DAILY PRN PRN Reason: Constipation Melatonin (Melatonin) 3 mg PO QHS PRN PRN Reason: INSOMNIA Metoprolol Tartrate (Lopressor (Beta Kevin)) 50 mg PO BID [facility] Last Admin: 12/07/19 20:35 Dose: 50 mg Documented by: Ondansetron HCl (Zofran) 4 mg IV Q6H PRN PRN PRN Reason: NAUSEA/VOMITING Last Admin: 12/07/19 15:14 Dose: 4 mg Documented by: Psyllium Hydrophilic Mucilloid (Metamucil) 1 packet PO DAILY PRN PRN Reason: Constipation Sodium Chloride () 500 ml IV BOLUS PRN PRN Reason: VASO-VAGAL PROTOCOL Sodium Chloride () 10 - 40 ml IV UD PRN PRN Reason: SALINE FLUSH Last Admin: 12/07/19 15:42 Dose: 10 ml Documented by: Ticagrelor (Brilinta) 90 mg PO BID [facility] Last Admin: 12/07/19 20:35 Dose: 90 mg Documented by: STROKE Vital Signs/Narrative: Vital Signs Temp Pulse Resp BP Pulse Ox 12/08/19 06:00 82 31 H 118/61 95 12/08/19 05:00 85 30 H 116/62 94 12/08/19 04:00 99.4 F H 81 37 H 116/70 92 Medical Necessity - Tobacco Use Smoking Status: Never smoker Tobacco Use: Non-smoker Assessment/Plan All Active Problems (Last Updated 12/08/19 @ 08:29 by Candi Keane) History of coronary artery stent placement (Acute) Atherosclerosis of coronary artery of chitina heart without angina pectoris (Acute) STEMI (ST elevation myocardial infarction) (Acute) Morbid (severe) obesity due to excess calories (Acute) 59-year-old female with no significant past medical history who was admitted with chest pain 1. Acute STEMI, JAYDON score 3, s/p emergent cardiac cath , s/p thrombectomy and NATI to LAD, residual RCA 60-70% stenosis present On aspirin, statin, Brilinta, metoprolol Lisinopril held on account of current cough which is been evaluated 2. Acute hypoxic respiratory insufficiency likely secondary to atelectasis and Acute systolic CHF Will diurese patient, wean off O2, continue breathing treatments 3. Acute combined CHF, EF of 30%, history of underlining ischemic cardiomyopathy 2D-ECHO also shows diastolic dysfunction, hypokinesis of apex, anterior wall and septum Received Lasix 40 mg IV x1, will continue on 20 mg IV twice daily Continue also on aspirin, statin, Brilinta, metoprolol Lisinopril held on account of current cough which is been evaluated 5. A. fib with RVR, converted to NSR, continue on metoprolol, Discussed with cardiology; would consider start of anticoagulation in the outpatient if patient persists in A. fib. 6. DVT PPx- Heparin SC Code Visit Inpatient E&M: 76613 Subs Hosp L2
[2019-12-08 08:34] LABS: ALB/GLOB Ratio 0.9 RATIO (0.9-2.4); AST(SGOT) 164 U/L (15-37); Alanine Aminotransfer ALT/SGPT 72 U/L (13-56); Albumin, Serum 3.2 g/dL (3.2-5.0); Alkaline Phosphatase 72 U/L (45-117); Anion Gap 5 (5-15); BUN 8 mg/dL (7-18); BUN/Creat Ratio 9.8 RATIO (10-20); Calcium,Total 8.1 mg/dL (8.5-10.1); Chloride 107 mmol/L (98-107); Creatinine, Serum 0.81 mg/dL (0.55-1.02); EST Glomerular Filtration Rate 77 mL/min (>60); Est Glom Filt Rate - Afr Amer 93 mL/min (>60); Estimated Creatinine Clearance 71.74 ml/min; Globulin 3.6 g/dL (2.2-4.2); Glucose 128 mg/dL (74-106); Magnesium 1.7 mg/dL (1.6-2.6); Potassium 3.9 mmol/L (3.5-5.1); Protein, Total 6.8 g/dL (6.4-8.2); Sodium Level 138 mmol/L (136-145)
[2019-12-08] MEDS: Metoprolol Tartrate 50 MG Tablet PO ×2 (09:43→21:31)
[2019-12-08] MEDS: TICAGRELOR 90 MG TABLET PO ×2 (09:43→21:31)
[2019-12-08] MEDS: Aspirin E.C. 81 MG Tablet PO (09:43)
--- NOTE | 2019-12-08 10:00 | EKG12_ITS ---
Test Reason : POSTCATH Blood Pressure : / mmHG Vent. Rate : 100 BPM Atrial Rate : 267 BPM P-R Int : 000 ms QRS Dur : 080 ms QT Int : 366 ms P-R-T Axes : 000 052 074 degrees QTc Int : 472 ms Atrial fibrillation Anterior infarct , age undetermined Abnormal ECG When compared with ECG of 07-DEC-2019 02:30, MANUAL COMPARISON REQUIRED, DATA IS UNCONFIRMED Confirmed by CRISTOBAL CASTREJON, KATRIN ([id number]), make up editor EMIL SALDANA ([id number]) on 12/10/2019 2:58:18 PM Referred By: Drake Burt Confirmed By:ESTEBAN BURT MD
--- NOTE | 2019-12-08 10:16 | CASEMGMT ---
Addendum entered by Ronen Rodríguez 12/08/19 13:50: 1320: Script for Brilinta for [place] financial [place] form obtained from Dr Burt and given to pt/daughter at this time. Daughter states she will fax to [place] with [place]. She was also made aware of [facility]cription [facility] info given to her mother this AM. Original Note: JERMAN PHELPS NOTE: Pt given Brilinta savings card and instructed on use. Pt voices understanding. Awaiting script from Dr Burt for Brilinta for [place] financial [place]. Will give to pt once script obtained. Pt aware financial part of application to be completed by pt/family and will need faxed to [place] along with Brilinta script once completed. She voices understanding. Also given Prescription [facility] prescription financial assist information if pt does not qualify for financial assist through [place]. Pt made aware to let photogeologist know if cost of Brilinta is still not affordable, so other options can be discussed. Pt voices understanding. Andre TUCKER RN, CM
[2019-12-08 10:31] LABS: BNP,B-Type NATRIURETIC PEPTIDE 279.8 pg/mL (0-100)
[2019-12-08] MEDS: Ipratropium/Albuterol Sulfate 3 ML AMPUL.NEB INHALATION ×2 (10:43→19:24)
[2019-12-08] MEDS: Furosemide 40 MG/4 ML Vial IV (10:57)
[2019-12-08] MEDS: Famotidine 200 MG/20 ML MDV 20 MG in 0.9% Normal Saline (Pres. free 8 ML 300 MG IV ×2 (10:57→21:31)
--- NOTE | 2019-12-08 12:47 | CASEMGMT ---
SW met w/pt in room, offered support to pt as is in TCU at present, and she was having chest pains when there visiting. Pt explained was at [facility] for 90 days between their ICU and LTACH, and has been in TCU for five weeks. She has been staying w/him at night as he is very anxious. She states she is managing okay mentally. After discharge she plans to stay w/a friend, will not be staying in TCU. Pt also states has four children, states they won't let me stay in TCU w/. Pt reports both children and family friend to be very supportive. Supportive listening provided, and SW remains available for any additional supportive needs. DELIO Powers
--- NOTE | 2019-12-08 12:56 | CHAPLAIN ---
Type of Pastoral Visit _x__ Initial Visit ___ Follow-up Visit ___ On-call Visit ___ General Patient Visit ___ Spiritual Assessment ___ Family Conference ___ Bereavement ___ Rapid Response ___ Code Blue ___ Other (describe below) Pastoral Care Referral From _x__ Patient ___ Family ___ Nurse ___ Physician ___ French Professor ___ Filler And Trimmer ___ Other (describe below) Sacrament/Intervention _x__ Active listening ___ Anointing ___ Lutheran ___ Bereavement ___ Communion _x__ Lexi exploration ___ _x__ Life review _x__ Prayer ___ Reconciliation ___ Sacrament of Sick ___ Supportive presence ___ Wedding ___ Other (describe below) Pastoral Comments
[2019-12-08] MEDS: Heparin Injection (Vial) 5,000 UNIT/ML VIAL 5000 UNIT SC ×2 (14:43→21:31)
--- NOTE | 2019-12-08 16:09 | PCM.PN.CARD ---
Subjectve: Patient is doing fairly well overall. She converted to sinus rhythm yesterday evening. She has required 4 L of oxygen by nasal cannula and IV Lasix has been started. She also has a cough and so lisinopril has been on hold. Patient did not receive any lisinopril yet. Objective: Vital Signs Temp Pulse Resp BP Pulse Ox 99.7 F H 82 18 136/62 H 92 12/08/19 13:19 12/08/19 13:19 12/08/19 13:19 12/08/19 13:19 12/08/19 13:19 Oxygen Flow Rate (L/min) 4 Oxygen Delivery Method Nasal Cannula Weight: 246 lb 11.156 oz Body Mass Index (BMI) 39.9 Intake and Output for Last 24 Hours 12/06/19 12/07/19 12/08/19 23:59 23:59 23:59 Intake Total 1075.14 / 1075.14 670.5 / 670.5 Output Total 100 / 100 1350 / 1350 Balance 975.14 / 975.14 -679.5 / -679.5 General: Awake, Alert, Oriented x 3 HEENT: Atraumatic Oral: Moist Mucosa Neck: Supple Lungs: Clear to auscultation Cardiovascular: Regular Rhythm Abdomen: Soft Extremities: No edema Skin: No Rashes 12/08/19 04:05: WBC 14.8 H, RBC 4.41, Hgb 13.4, Hct 39.7, MCV 90.0, MCH 30.4, MCHC 33.8, Plt Count 261, MPV 10.5 12/08/19 04:57: B-Natriuretic Peptide 279.8 H 12/08/19 08:00: Sodium 138, Potassium 3.9, Chloride 107, Carbon Dioxide 26.0, Anion Gap 5, BUN 8, Creatinine 0.81, Est GFR (MDRD) Af Amer 93, Est GFR (MDRD) Non-Af 77, BUN/Creatinine Ratio 9.8 L, Glucose 128 H, Calcium 8.1 L, Total Bilirubin 0.80 12/08/19 08:00: Magnesium 1.7 Rhythm: EKG: ECHO: Stress Test: Cardiac Cath: PCI: CT Surgery: Holter monitor: EPS: PPM: CXR: Chest CT Scan: Medical Necessity - Tobacco Use Smoking Status: Never smoker Tobacco Use: Non-smoker Assessment/Plan 1. Chest pain: EKG was suggestive of anterior ST elevation MA and emergent coronary angiography revealed 100% occlusion of the LAD that was treated with thrombectomy and drug-eluting stent placement. We will keep the patient on aspirin and Brilinta. Continue statin. Change metoprolol to Toprol-XL from tomorrow. 2. LV dysfunction: In the setting of acute MA. Patient presented fairly early. Continue beta-dania. Switch to Toprol-XL. We may probably be able to start lisinopril tomorrow. Continue IV Lasix for now. We may be able to either DC that or switch to p.o. Lasix tomorrow. 3. A. fib: Newly diagnosed A. fib. Paroxysmal. Currently in sinus rhythm. Will monitor. 4. 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 As an outpatient we may consider a stress test to evaluate this lesion. Critical care time spent taking care of this patient excluding procedure time is 35 minutes.
[2019-12-08] MEDS: Furosemide 20 MG/2 ML VIAL IV (18:21)
[2019-12-08] MEDS: 0.9% Saline Lock 10 ML Syringe IV (18:21)
[2019-12-08] MEDS: Atorvastatin Calcium 40 MG Tablet PO (21:31)
[2019-12-09] VITALS (17 sets, daily range): BP systolic 97–125; BP diastolic 53–68; PULSE 64–89; RESP 14–18; TEMP 36.9–37.1; O2SAT 90–96
[2019-12-09] MEDS: Heparin Injection (Vial) 5,000 UNIT/ML VIAL 5000 UNIT SC ×3 (06:15→21:04)
[2019-12-09 06:29] LABS: Absolute Neutrophil Count 6.2 X10^3/uL (2.0-7.7); Basophil# 0.07 X10^3/uL; Basophil% 0.8 % (0-1); Eosinophil# 0.12 X10^3/uL; Eosinophils% 1.3 % (0-5); Hemoglobin 13.2 g/dL (12.0-15.0); Lymphocyte % 20.6 % (19-41); Mean Corp Hgb Conc 33.8 g/dL (32-36); Mean Corpuscular Hgb 30.8 pg (27.0-32.0); Mean Corpuscular Volume 91.1 fL (81-99); Mean Platelet Vol. 10.3 fl (6.2-12.0); Monocyte# 0.85 X10^3/uL; Monocyte% 9.2 % (0-10); NRBC Flagged by Analyzer 0 % (0-5); Neutrophil # 6.22 X10^3/uL (2.7-7.7); Neutrophil % 67.4 % (47-70); Platelet Count 236 K/mm3 (150-450); RBC Distribution Width SD 43.4 fl (35.1-43.9); Red Blood Count 4.28 M/mm3 (4.2-5.4); White Blood Count 9.2 K/mm3 (4.4-11.0)
[2019-12-09 06:57] LABS: ALB/GLOB Ratio 0.8 RATIO (0.9-2.4); AST(SGOT) 86 U/L (15-37); Alanine Aminotransfer ALT/SGPT 47 U/L (13-56); Albumin, Serum 2.9 g/dL (3.2-5.0); Alkaline Phosphatase 63 U/L (45-117); Anion Gap 5 (5-15); BUN 14 mg/dL (7-18); BUN/Creat Ratio 19.5 RATIO (10-20); Calcium,Total 8.1 mg/dL (8.5-10.1); Chloride 109 mmol/L (98-107); Creatinine, Serum 0.72 mg/dL (0.55-1.02); EST Glomerular Filtration Rate 89 mL/min (>60); Est Glom Filt Rate - Afr Amer 108 mL/min (>60); Globulin 3.7 g/dL (2.2-4.2); Glucose 96 mg/dL (74-106); Potassium 3.2 mmol/L (3.5-5.1); Protein, Total 6.6 g/dL (6.4-8.2); Sodium Level 141 mmol/L (136-145)
--- NOTE | 2019-12-09 07:37 | PCM.PN.HOSP ---
Patient Problems: Active and Suspected Problems (Last Updated 12/08/19 @ 08:29 by Candi Keane) History of coronary artery stent placement (Acute) 2.25 x 20 mm Synergy MR NATI to LAD 12/06/19 Atherosclerosis of coronary artery of [place] heart without angina pectoris (Acute) 2.25 x 20 mm Synergy MR NATI to LAD 12/06/19 STEMI (ST elevation myocardial infarction) (Acute) Morbid (severe) obesity due to excess calories (Acute) Vitals/I&O's: Vital Signs Temp Pulse Resp BP Pulse Ox 98.7 F 69 14 106/68 96 12/09/19 03:30 12/09/19 07:09 12/09/19 03:30 12/09/19 03:30 12/09/19 03:30 Oxygen Flow Rate (L/min) 2 Oxygen Delivery Method Nasal Cannula Weight: 109 kg Body Mass Index (BMI) 39.9 Intake and Output for Last 24 Hours 12/07/19 12/08/19 12/09/19 23:59 23:59 23:59 Intake Total 1075.14 / 1075.14 1640.5 / 1640.5 100 / 100 Output Total 100 / 100 1350 / 1350 400 / 400 Balance 975.14 / 975.14 290.5 / 290.5 -300 / -300 Microbiology Past 72 Hours 12/08/19 08:00 Mucosa - Nasopharyngeal Respiratory Panel (PCR) - Final Laboratory Results 12/08/19 04:57: B-Natriuretic Peptide 279.8 H 12/08/19 08:00: Sodium 138, Potassium 3.9, Chloride 107, Carbon Dioxide 26.0, Anion Gap 5, BUN 8, Creatinine 0.81, Estim Creat Clear Calc 71.74, Est GFR (MDRD) Af Amer 93, Est GFR (MDRD) Non-Af 77, BUN/Creatinine Ratio 9.8 L, Glucose 128 H, Calcium 8.1 L, Total Bilirubin 0.80, AST 164 H, ALT 72 H, Alkaline Phosphatase 72, Total Protein 6.8, Albumin 3.2, Globulin 3.6, Albumin/Globulin Ratio 0.9 12/08/19 08:00: Magnesium 1.7 12/09/19 06:17: WBC 9.2, RBC 4.28, Hgb 13.2, Hct 39.0, MCV 91.1, MCH 30.8, MCHC 33.8, RDW Std Deviation 43.4, RDW Coeff of Elsa 13.0, Plt Count 236, MPV 10.3, Immature Gran % (Auto) 0.700, Neut % (Auto) 67.4, Lymph % (Auto) 20.6, [place] % (Auto) 9.2, Eos % (Auto) 1.3, Baso % (Auto) 0.8, Absolute Neuts (auto) 6.2, Absolute Lymphs (auto) 1.90, Nucleated RBC % 0 12/09/19 06:17: Sodium 141, Potassium 3.2 L, Chloride 109 H, Carbon Dioxide 27.0, Anion Gap 5, BUN 14, Creatinine 0.72, Estim Creat Clear Calc 80.70, Est GFR (MDRD) Af Amer 108, Est GFR (MDRD) Non-Af 89, BUN/Creatinine Ratio 19.5, Glucose 96, Calcium 8.1 L, Total Bilirubin 0.70, AST 86 H, ALT 47, Alkaline Phosphatase 63, Total Protein 6.6, Albumin 2.9 L, Globulin 3.7, Albumin/Globulin Ratio 0.8 L Current Medications Acetaminophen (Tylenol) 650 mg PO Q6H PRN PRN PRN Reason: Pain Score 1-10/10 Last Admin: 12/07/19 15:15 Dose: 650 mg Documented by: Albuterol/Ipratropium (Duoneb) 3 ml INHALATION Q4HWA.RT [facility] Last Admin: 12/08/19 19:24 Dose: 3 ml Documented by: Aspirin (Ecotrin) 81 mg PO DAILY@0800 [facility] Last Admin: 12/08/19 09:43 Dose: 81 mg Documented by: Atorvastatin Calcium (Lipitor) 40 mg PO QHS [facility] Last Admin: 12/08/19 21:31 Dose: 40 mg Documented by: Atropine Sulfate () 0.5 mg IV UD PRN PRN Reason: HR <50 bpm Fluticasone Propionate (Flonase Nasal [place]) 1 spray NASAL BID [facility] Last Admin: 12/08/19 21:30 Dose: Not Given Documented by: Furosemide (Lasix) 20 mg IV BID@1000,1800 [facility] Last Admin: 12/08/19 18:21 Dose: 20 mg Documented by: Heparin Sodium (Beef Lung) (Heparin 500 Unit/5 Ml (100/Ml)) 500 unit IV UD PRN PRN Reason: HEPARIN FLUSH Heparin Sodium (Porcine) (Heparin Na) 5,000 unit SC Q8 [facility] Last Admin: 12/09/19 06:15 Dose: 5,000 unit Documented by: Sodium Chloride () 250 mls @ 15 mls/hr IV .[id number] PRN PRN Reason: Additional IVPB Infusion Famotidine 20 mg/ Sodium (Chloride) 10 mls @ 300 mls/hr IV Q12 [facility] Last Infusion: 12/08/19 21:33 Dose: Infused Documented by: Labetalol HCl (Trandate) 5 mg IV X1 PRN PRN Reason: FOR SYSTOLIC PRESSURE > 160 Magnesium Hydroxide (Milk Of Magnesia) 30 ml PO DAILY PRN PRN Reason: Constipation Melatonin (Melatonin) 3 mg PO QHS PRN PRN Reason: INSOMNIA Metoprolol Succinate (Toprol Xl (Beta Kevin)) 100 mg PO DAILY [facility] Ondansetron HCl (Zofran) 4 mg IV Q6H PRN PRN PRN Reason: NAUSEA/VOMITING Last Admin: 12/07/19 15:14 Dose: 4 mg Documented by: Potassium Chloride (K-Dur) 60 meq PO X1 ONE Stop: 12/09/19 07:37 Potassium Chlor[facility] ([facility]Dur) [facility] Psyllium Hydrophilic Mucilloid (Metamucil) 1 packet PO DAILY PRN PRN Reason: Constipation Sodium Chloride () 10 - 40 ml IV UD PRN PRN Reason: SALINE FLUSH Last Admin: 12/08/19 18:21 Dose: 20 ml Documented by: Ticagrelor (Brilinta) 90 mg PO BID [facility] Last Admin: 12/08/19 21:31 Dose: 90 mg Documented by: STROKE Vital Signs/Narrative: Vital Signs Pulse 12/09/19 07:09 69 Medical Necessity - Tobacco Use Smoking Status: Never smoker Tobacco Use: Non-smoker Assessment/Plan All Active Problems (Last Updated 12/08/19 @ 08:29 by Candi Keane) History of coronary artery stent placement (Acute) Atherosclerosis of coronary artery of [place] heart without angina pectoris (Acute) STEMI (ST elevation myocardial infarction) (Acute) Morbid (severe) obesity due to excess calories (Acute)
[2019-12-09] MEDS: Ipratropium/Albuterol Sulfate 3 ML AMPUL.NEB INHALATION ×4 (08:00→19:11)
[2019-12-09] MEDS: Aspirin E.C. 81 MG Tablet PO (08:03)
[2019-12-09 09:11] LABS: Phosphorus 1.8 mg/dL (2.5-4.9)
[2019-12-09 09:36] LABS: Magnesium 2.3 mg/dL (1.6-2.6)
[2019-12-09] MEDS: Furosemide 40 MG/4 ML Vial IV ×2 (10:24→13:20)
[2019-12-09] MEDS: Fluticasone 0.05% 1 SPRAY NASAL.SRY NASAL (10:24)
[2019-12-09] MEDS: 0.9% Saline Lock 10 ML Syringe IV ×2 (10:24→13:20)
[2019-12-09] MEDS: TICAGRELOR 90 MG TABLET PO ×2 (10:25→21:04)
[2019-12-09] MEDS: Metoprolol(XL)Succ 100 MG Tablet PO (10:32)
--- NOTE | 2019-12-09 12:36 | PN_ITS ---
<Faustino Leon - Last Filed: 12/09/19 12:36> Patient Problems: Active and Suspected Problems (Last Updated 12/08/19 @ 08:29 by Candi Keane) History of coronary artery stent placement (Acute) 2.25 x 20 mm Synergy MR NATI to LAD 12/06/19 Atherosclerosis of coronary artery of [place] heart without angina pectoris (Acute) 2.25 x 20 mm Synergy MR NATI to LAD 12/06/19 STEMI (ST elevation myocardial infarction) (Acute) Morbid (severe) obesity due to excess calories (Acute) Reason for Visit: sob Subjective: No CP, palp, pressure. Ongoing SOB at rest and with exertion. Overall she feels very fatigued. She has trace LE edema. She feels that the first dose of lasix made her urinate more but then later not as much. She denies issues emptying her bladder, no dysuria. Vitals/I&O's: Vital Signs Temp Pulse Resp BP Pulse Ox 98.4 F 88 15 125/63 H 94 12/09/19 10:20 12/09/19 12:07 12/09/19 10:58 12/09/19 10:32 12/09/19 11:15 Oxygen Flow Rate (L/min) 2 Oxygen Delivery Method Room Air Weight: 240 lb 4.862 oz Body Mass Index (BMI) 39.9 Intake and Output for Last 24 Hours 12/07/19 12/08/19 12/09/19 23:59 23:59 23:59 Intake Total 1075.14 / 1075.14 1640.5 / 1640.5 720 / 720 Output Total 100 / 100 1350 / 1350 1400 / 1400 Balance 975.14 / 975.14 290.5 / 290.5 -680 / -680 General: Alert, Oriented x3, Cooperative HEENT: Atraumatic, PERRLA, EOMI, Normocephalic Neck: Supple, No JVD, Negative Carotid Bruits Lungs: Clear to auscultation, Normal air movement, Rales Cardiovascular: Regular rate, No murmurs Abdomen: Bowel Sounds Present, Soft, Non Tender Extremities: Capillary Refill Less than 3 Seconds, Edema - trace edema BLE Skin: No rashes, No breakdown Musculoskeletal: No Tenderness to Palpation of Joints or Extremities Neurological: Cranial nerves II-XII grossly intact Psych/Mental Status: Normal Affect, Appropriate, Alert and oriented to time, place, person, mood and affect Microbiology Past 72 Hours 12/08/19 08:00 Mucosa - Nasopharyngeal Respiratory Panel (PCR) - Final Laboratory Results 12/09/19 06:17: WBC 9.2, RBC 4.28, Hgb 13.2, Hct 39.0, MCV 91.1, MCH 30.8, MCHC 33.8, RDW Std Deviation 43.4, RDW Coeff of Elsa 13.0, Plt Count 236, MPV 10.3, Immature Gran % (Auto) 0.700, Neut % (Auto) 67.4, Lymph % (Auto) 20.6, [place] % (Auto) 9.2, Eos % (Auto) 1.3, Baso % (Auto) 0.8, Absolute Neuts (auto) 6.2, Absolute Lymphs (auto) 1.90, Nucleated RBC % 0 12/09/19 06:17: Sodium 141, Potassium 3.2 L, Chloride 109 H, Carbon Dioxide 27.0, Anion Gap 5, BUN 14, Creatinine 0.72, Estim Creat Clear Calc 80.70, Est GFR (MDRD) Af Amer 108, Est GFR (MDRD) Non-Af 89, BUN/Creatinine Ratio 19.5, Glucose 96, Calcium 8.1 L, Total Bilirubin 0.70, AST 86 H, ALT 47, Alkaline Phosphatase 63, Total Protein 6.6, Albumin 2.9 L, Globulin 3.7, Albumin/Globulin Ratio 0.8 L 12/09/19 06:17: Magnesium 2.3 12/09/19 06:17: Phosphorus 1.8 L Current Medications Acetaminophen (Tylenol) 650 mg PO Q6H PRN PRN PRN Reason: Pain Score 1-10/10 Last Admin: 12/07/19 15:15 Dose: 650 mg Documented by: Albuterol/Ipratropium (Duoneb) 3 ml INHALATION Q4HWA.RT [facility] Last Admin: 12/09/19 10:58 Dose: 3 ml Documented by: Aspirin (Ecotrin) 81 mg PO DAILY@0800 [facility] Last Admin: 12/09/19 08:03 Dose: 81 mg Documented by: Atorvastatin Calcium (Lipitor) 40 mg PO QHS [facility] Last Admin: 12/08/19 21:31 Dose: 40 mg Documented by: Atropine Sulfate () 0.5 mg IV UD PRN PRN Reason: HR <50 bpm Fluticasone Propionate (Flonase Nasal [place]) 1 spray NASAL BID [facility] Last Admin: 12/09/19 10:24 Dose: 1 spray Documented by: Furosemide (Lasix) 40 mg IV Q8 [facility] Heparin Sodium (Beef Lung) (Heparin 500 Unit/5 Ml (100/Ml)) 500 unit IV UD PRN PRN Reason: HEPARIN FLUSH Heparin Sodium (Porcine) (Heparin Na) 5,000 unit SC Q8 [facility] Last Admin: 12/09/19 06:15 Dose: 5,000 unit Documented by: Sodium Chloride () 250 mls @ 15 mls/hr IV .[id number] PRN PRN Reason: Additional IVPB Infusion Labetalol HCl (Trandate) 5 mg IV X1 PRN PRN Reason: FOR SYSTOLIC PRESSURE > 160 Magnesium Hydroxide (Milk Of Magnesia) 30 ml PO DAILY PRN PRN Reason: Constipation Melatonin (Melatonin) 3 mg PO QHS PRN PRN Reason: INSOMNIA Metoprolol Succinate (Toprol Xl (Beta Kevin)) 100 mg PO DAILY [facility] Last Admin: 12/09/19 10:32 Dose: 100 mg Documented by: Ondansetron HCl (Zofran) 4 mg IV Q6H PRN PRN PRN Reason: NAUSEA/VOMITING Last Admin: 12/07/19 15:14 Dose: 4 mg Documented by: Potassium Chloride (K-Dur) [facility] Psyllium Hydrophilic Mucilloid (Metamucil) 1 packet PO DAILY PRN PRN Reason: Constipation Sodium Chloride () 10 - 40 ml IV UD PRN PRN Reason: SALINE FLUSH Last Admin: 12/09/19 10:24 Dose: 20 ml Documented by: Ticagrelor (Brilinta) 90 mg PO BID [facility] Last Admin: 12/09/19 10:25 Dose: 90 mg Documented by: STROKE Vital Signs/Narrative: Vital Signs Temp Pulse Resp BP Pulse Ox 12/09/19 12:07 88 12/09/19 11:15 94 12/09/19 10:58 80 15 94 12/09/19 10:32 89 125/63 H 12/09/19 10:20 98.4 F 89 15 125/63 H 94 Medical Necessity - Tobacco Use Smoking Status: Never smoker Tobacco Use: Non-smoker Assessment/Plan All Active Problems (Last Updated 12/08/19 @ 08:29 by Candi Keane) History of coronary artery stent placement (Acute) Atherosclerosis of coronary artery of [place] heart without angina pectoris (Acute) STEMI (ST elevation myocardial infarction) (Acute) Morbid (severe) obesity due to excess calories (Acute) 1. Stemi - s/p cath + stent to LAD. Stable now. Continue asa/statin/metoprolol/brillinta. Cardiology following. 2. Acute hypoxic respiratory failure 2/2 acute systolic CHF - EF 30% - increase lasix. Still with rales and SOB. 3. Afib/RVR - now NSR. Defer anticoagulation. May consider at outpatient follow up. Continue metoprolol. DVT ppx: heparin DC planning: continue to diurese and wean o2. This patient was seen by Faustino Leon PA-C under the supervision of Doctor Patrick. <Leslie Nguyen - Last Filed: 12/09/19 13:58> Vitals/I&O's: Vital Signs Temp Pulse Resp BP Pulse Ox 98.4 F 82 16 97/53 L 91 12/09/19 13:16 12/09/19 13:16 12/09/19 13:16 12/09/19 13:16 12/09/19 13:16 Oxygen Flow Rate (L/min) 2 Oxygen Delivery Method Room Air Weight: 109 kg Body Mass Index (BMI) 39.9 Intake and Output for Last 24 Hours 12/07/19 12/08/19 12/09/19 23:59 23:59 23:59 Intake Total 1075.14 / 1075.14 1640.5 / 1640.5 720 / 720 Output Total 100 / 100 1350 / 1350 1400 / 1400 Balance 975.14 / 975.14 290.5 / 290.5 -680 / -680 Microbiology Past 72 Hours 12/08/19 08:00 Mucosa - Nasopharyngeal Respiratory Panel (PCR) - Final Laboratory Results 12/09/19 06:17: WBC 9.2, RBC 4.28, Hgb 13.2, Hct 39.0, MCV 91.1, MCH 30.8, MCHC 33.8, RDW Std Deviation 43.4, RDW Coeff of Elsa 13.0, Plt Count 236, MPV 10.3, Immature Gran % (Auto) 0.700, Neut % (Auto) 67.4, Lymph % (Auto) 20.6, [place] % (Auto) 9.2, Eos % (Auto) 1.3, Baso % (Auto) 0.8, Absolute Neuts (auto) 6.2, Absolute Lymphs (auto) 1.90, Nucleated RBC % 0 12/09/19 06:17: Sodium 141, Potassium 3.2 L, Chloride 109 H, Carbon Dioxide 27.0, Anion Gap 5, BUN 14, Creatinine 0.72, Estim Creat Clear Calc 80.70, Est GFR (MDRD) Af Amer 108, Est GFR (MDRD) Non-Af 89, BUN/Creatinine Ratio 19.5, Glucose 96, Calcium 8.1 L, Total Bilirubin 0.70, AST 86 H, ALT 47, Alkaline Phosphatase 63, Total Protein 6.6, Albumin 2.9 L, Globulin 3.7, Albumin/Globulin Ratio 0.8 L 12/09/19 06:17: Magnesium 2.3 12/09/19 06:17: Phosphorus 1.8 L Current Medications Acetaminophen (Tylenol) 650 mg PO Q6H PRN PRN PRN Reason: Pain Score 1-10/10 Last Admin: 12/07/19 15:15 Dose: 650 mg Documented by: Albuterol/Ipratropium (Duoneb) 3 ml INHALATION Q4HWA.RT [facility] Last Admin: 12/09/19 10:58 Dose: 3 ml Documented by: Aspirin (Ecotrin) 81 mg PO DAILY@0800 [facility] Last Admin: 12/09/19 08:03 Dose: 81 mg Documented by: Atorvastatin Calcium (Lipitor) 40 mg PO QHS [facility] Last Admin: 12/08/19 21:31 Dose: 40 mg Documented by: Atropine Sulfate () 0.5 mg IV UD PRN PRN Reason: HR <50 bpm Fluticasone Propionate (Flonase Nasal [place]) 1 spray NASAL BID [facility] Last Admin: 12/09/19 10:24 Dose: 1 spray Documented by: Furosemide (Lasix) 20 mg PO BID@1000,1800 [facility] Heparin Sodium (Beef Lung) (Heparin 500 Unit/5 Ml (100/Ml)) 500 unit IV UD PRN PRN Reason: HEPARIN FLUSH Heparin Sodium (Porcine) (Heparin Na) 5,000 unit SC Q8 [facility] Last Admin: 12/09/19 13:21 Dose: 5,000 unit Documented by: Sodium Chloride () 250 mls @ 15 mls/hr IV .[id number] PRN PRN Reason: Additional IVPB Infusion Labetalol HCl (Trandate) 5 mg IV X1 PRN PRN Reason: FOR SYSTOLIC PRESSURE > 160 Lisinopril (Zestril) 2.5 mg PO DAILY [facility] Magnesium Hydroxide (Milk Of Magnesia) 30 ml PO DAILY PRN PRN Reason: Constipation Melatonin (Melatonin) 3 mg PO QHS PRN PRN Reason: INSOMNIA Metoprolol Succinate (Toprol Xl (Beta Kevin)) 100 mg PO DAILY [facility] Last Admin: 12/09/19 10:32 Dose: 100 mg Documented by: Ondansetron HCl (Zofran) 4 mg IV Q6H PRN PRN PRN Reason: NAUSEA/VOMITING Last Admin: 12/07/19 15:14 Dose: 4 mg Documented by: Potassium Chloride (K-Dur) [facility] Potassium Phos/Sodium Phos (Neutra-Phos Packet) 1 packet PO 4X/DAY [facility] Stop: 12/09/19 22:01 Last Admin: 12/09/19 13:28 Dose: 1 packet Documented by: Psyllium Hydrophilic Mucilloid (Metamucil) 1 packet PO DAILY PRN PRN Reason: Constipation Sodium Chloride () 10 - 40 ml IV UD PRN PRN Reason: SALINE FLUSH Last Admin: 12/09/19 13:20 Dose: 20 ml Documented by: Ticagrelor (Brilinta) 90 mg PO BID [facility] Last Admin: 12/09/19 10:25 Dose: 90 mg Documented by: STROKE Vital Signs/Narrative: Vital Signs Temp Pulse Resp BP Pulse Ox 12/09/19 13:16 98.4 F 82 16 97/53 L 91 12/09/19 12:07 88 12/09/19 11:15 94 12/09/19 10:58 80 15 94 12/09/19 10:32 89 125/63 H 12/09/19 10:20 98.4 F 89 15 125/63 H 94 Assessment/Plan This patient was seen in conjunction with ANGELIC Krause. I have independently interviewed and examined the patient and reviewed pertinent historical, laboratory, and other data. Please refer to ANGELIC Krause note for his patient's presentation, findings, and recommendations. I have reviewed and his note and concur with his documentation Patient was seen and examined. She feels improved. on 2L oxygen. Still feels SOB. No chest pain Physical Exam: Gen: Comfortable, not pale, not jaundiced CVS:HS I +II, regular, no murmurs RESP: Diminished especially at lung bases GI: BS present and normal, soft, nontender, no palpable organs EXT:Bilateral pedal edema +1 ASSESSMENT: 1. Acute systolic CHF, EF 30% 2. Acute STEMI 3. CAD s/p NATI LAD 4. A. fib with RVR, now in NSR Plan: Continue on Lasix IV, daily weights, strict CHF protocol Continue on aspirin, statin, Brilinta, metoprolol Resume Lisinopril at discharge Code Visit Inpatient E&M: 96553 Subs Hosp L2
[2019-12-09] MEDS: Na Biphos/Potassium Phosphate PACKET 1 PACKET PO ×4 (13:20→21:04)
--- NOTE | 2019-12-09 14:45 | PCM.PN.CARD ---
Subjectve: Patient is feeling better currently. This morning she had some shortness of breath when she went to the bathroom. Her Lasix was increased to 40 mg IV every 8 hours. At this time she is lying flat without any problems. Denies any chest pain or shortness of breath. Objective: Vital Signs Temp Pulse Resp BP Pulse Ox 98.4 F 83 17 105/56 L 94 12/09/19 14:33 12/09/19 14:33 12/09/19 14:33 12/09/19 14:33 12/09/19 14:33 Oxygen Flow Rate (L/min) 2 Oxygen Delivery Method Room Air Weight: 240 lb 4.862 oz Body Mass Index (BMI) 39.9 Intake and Output for Last 24 Hours 12/07/19 12/08/19 12/09/19 23:59 23:59 23:59 Intake Total 1075.14 / 1075.14 1640.5 / 1640.5 720 / 720 Output Total 100 / 100 1350 / 1350 2900 / 2900 Balance 975.14 / 975.14 290.5 / 290.5 -2180 / -2180 General: Awake, Alert, Oriented x 3 HEENT: Atraumatic Oral: Moist Mucosa Neck: Supple Lungs: Clear to auscultation Cardiovascular: Normal S1, Normal S2 Abdomen: Soft Extremities: No edema Skin: No Rashes Psych/Mental Status: Appropriate 12/09/19 06:17: WBC 9.2, RBC 4.28, Hgb 13.2, Hct 39.0, MCV 91.1, MCH 30.8, MCHC 33.8, Plt Count 236, MPV 10.3, Immature Gran % (Auto) 0.700, Neut % (Auto) 67.4, Lymph % (Auto) 20.6, [place] % (Auto) 9.2, Eos % (Auto) 1.3, Baso % (Auto) 0.8, Absolute Neuts (auto) 6.2, Nucleated RBC % 0 12/09/19 06:17: Sodium 141, Potassium 3.2 L, Chloride 109 H, Carbon Dioxide 27.0, Anion Gap 5, BUN 14, Creatinine 0.72, Est GFR (MDRD) Af Amer 108, Est GFR (MDRD) Non-Af 89, BUN/Creatinine Ratio 19.5, Glucose 96, Calcium 8.1 L, Total Bilirubin 0.70 12/09/19 06:17: Magnesium 2.3 12/09/19 06:17: Phosphorus 1.8 L Rhythm: EKG: ECHO: Stress Test: Cardiac Cath: PCI: CT Surgery: Holter monitor: EPS: PPM: CXR: Chest CT Scan: Medical Necessity - Tobacco Use Smoking Status: Never smoker Tobacco Use: Non-smoker Assessment/Plan 1. Chest pain: EKG was suggestive of anterior ST elevation [place] and emergent coronary angiography revealed 100% occlusion of the LAD that was treated with thrombectomy and drug-eluting stent placement. We will keep the patient on aspirin and Brilinta. Continue statin and beta-dania. 2. LV dysfunction: In the setting of acute [place]. Patient presented fairly early. Continue beta-dania. His Lasix to 20 mg p.o. twice daily. Add lisinopril 2.5 mg p.o. daily. 3. A. fib: Newly diagnosed A. fib. Paroxysmal. Currently in sinus rhythm. Will monitor. 4. 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 As an outpatient we may consider a stress test to evaluate this lesion.
[2019-12-09] MEDS: Furosemide 20 MG Tablet PO (21:04)
[2019-12-09] MEDS: Atorvastatin Calcium 40 MG Tablet PO (21:04)
[2019-12-10] VITALS (12 sets, daily range): BP systolic 80–116; BP diastolic 40–75; PULSE 67–78; RESP 14–20; TEMP 36.5–37; O2SAT 90–97
[2019-12-10] MEDS: Heparin Injection (Vial) 5,000 UNIT/ML VIAL 5000 UNIT SC (05:08)
[2019-12-10 06:15] LABS: Anion Gap 6 (5-15); BUN 18 mg/dL (7-18); BUN/Creat Ratio 20.8 RATIO (10-20); Calcium,Total 8.6 mg/dL (8.5-10.1); Chloride 107 mmol/L (98-107); Creatinine, Serum 0.87 mg/dL (0.55-1.02); EST Glomerular Filtration Rate 72 mL/min (>60); Est Glom Filt Rate - Afr Amer 87 mL/min (>60); Estimated Creatinine Clearance 66.79 ml/min; Glucose 94 mg/dL (74-106); Potassium 3.8 mmol/L (3.5-5.1); Sodium Level 141 mmol/L (136-145)
[2019-12-10] MEDS: Ipratropium/Albuterol Sulfate 3 ML AMPUL.NEB INHALATION ×2 (06:45→10:51)
[2019-12-10] MEDS: Aspirin E.C. 81 MG Tablet PO (07:47)
[2019-12-10] MEDS: Fluticasone 0.05% 1 SPRAY NASAL.SRY NASAL (09:28)
[2019-12-10] MEDS: TICAGRELOR 90 MG TABLET PO (09:28)
[2019-12-10] MEDS: Lisinopril 2.5 MG Tablet PO (10:16)
[2019-12-10] MEDS: Metoprolol(XL)Succ 50 MG Tablet PO (10:16)
--- NOTE | 2019-12-10 10:36 | DCINST_ITS ---
- Discharge Diagnoses Current Active Problems: Current Active and Chronic Problems (Last Updated 12/08/19 @ 08:29 by Candi Keane) History of coronary artery stent placement (Acute) 2.25 x 20 mm Synergy MR NATI to LAD 12/06/19 Atherosclerosis of coronary artery of [place] heart without angina pectoris (Acute) 2.25 x 20 mm Synergy MR NATI to LAD 12/06/19 STEMI (ST elevation myocardial infarction) (Acute) Morbid (severe) obesity due to excess calories (Acute) You will use the following diet at home:: Cardiac Your food should be the consistency of: Regular Your liquids should be the consistency of: Regular/Thin Discharge Activity: Return to Normal Activity Allergies/Adverse Reactions: Allergies No Known Allergies Allergy (Verified 12/07/19 02:32) Medications to take at Discharge Aspirin E.C. [Ecotrin] 81 mg PO DAILY@0800 tablet 12/10/19 Atorvastatin Calcium [Lipitor] 40 mg PO QHS #30 tab 12/10/19 Furosemide [Lasix] 20 mg PO BID@1000,1800 #60 tab 12/10/19 Lisinopril [Zestril] 2.5 mg PO DAILY #30 tab 12/10/19 Metoprolol(XL)Succ [Toprol Xl (Beta Kevin)] 50 mg PO DAILY #30 tab 12/10/19 Potassium Chloride [K-Dur] 20 meq PO DAILY #30 tab 12/10/19 Ticagrelor [Brilinta] 90 mg PO BID #120 tab 12/10/19 The following prescriptions were given: Ticagrelor [Brilinta] 90 mg PO BID #120 tab Transmission Status: Pending to [facility] Potassium Chloride [K-Dur] 20 meq PO DAILY #30 tab Transmission Status: Pending to [facility] Furosemide [Lasix] 20 mg PO BID@1000,1800 #60 tab Transmission Status: Pending to [facility] Atorvastatin Calcium [Lipitor] 40 mg PO QHS #30 tab Transmission Status: Pending to [facility] Metoprolol(XL)Succ [Toprol Xl (Beta Kevin)] 50 mg PO DAILY #30 tab Transmission Status: Pending to [facility] Lisinopril [Zestril] 2.5 mg PO DAILY #30 tab Transmission Status: Pending to [facility] Orders to be completed after discharge: Phase II, Outpatient Cardiac Rehab Location: None Selected Primary Care Physician: Eric Roe MD [Primary Care Provider] - Please follow up with your Primary Care Physician in: 1-2 weeks Test Results: Test results from this visit will be discussed in further detail at your follow- up appointment, if applicable. Please Follow Up With: Drake Burt MD When: as directed Proposed Discharge Date: 12/10/19
--- NOTE | 2019-12-10 11:57 | PHA.DC.MC ---
Pharmacy Service has performed discharge medication reconciliation and counseling for this patient. Note: all medications on home med list are new to patient. The patient's discharge medication list was reviewed for discrepancies and discrepancies were resolved. The patient was counseled on the following discharge medications and changes in medications for homegoing were reviewed. The Reason for Use, instructions for use, and potential side effects were reviewed for all new medications. The patient's questions regarding all of their medications were answered. The patient was able to verbally demonstrate an understanding of their discharge medications. Home Medications Aspirin E.C. [Ecotrin] 81 mg PO DAILY@0800 tab 12/10/19 Atorvastatin Calcium [Lipitor] 40 mg PO QHS #30 tab 12/10/19 Furosemide [Lasix] 20 mg PO BID@1000,1800 #60 tab 12/10/19 Lisinopril [Zestril] 2.5 mg PO DAILY #30 tab 12/10/19 Metoprolol(XL)Succ [Toprol Xl (Beta Kevin)] 50 mg PO DAILY #30 tab 12/10/19 Potassium Chloride [K-Dur] 20 meq PO DAILY #30 tab 12/10/19 Ticagrelor [Brilinta] 90 mg PO BID #120 tab 12/10/19
--- NOTE | 2019-12-10 12:54 | PCM.DC.SUM ---
<Faustino Leon - Last Filed: 12/10/19 12:54> Discharge Date and Diagnosis - Problem List Patient Problems: Active and Suspected Problems (Last Updated 12/08/19 @ 08:29 by Candi Keane) History of coronary artery stent placement (Acute) 2.25 x 20 mm Synergy MR NATI to LAD 12/06/19 Atherosclerosis of coronary artery of [place] heart without angina pectoris (Acute) 2.25 x 20 mm Synergy MR NATI to LAD 12/06/19 STEMI (ST elevation myocardial infarction) (Acute) Morbid (severe) obesity due to excess calories (Acute) Date of Admission: 12/07/19 Date of Discharge: 12/10/19 - Primary Discharge Diagnosis Active and Suspected Problems (Last Updated 12/08/19 @ 08:29 by Candi Keane) STEMI Acute hypoxic respiratory failure 2/2 acute systolic CHF EF 30% Afib RVR HTN HLD Hospital Course and Treatment Imaging Results: RAD/Chest 1 View (Portable) IMPRESSION: Possible mild vascular congestion, otherwise no acute process identified. 2D Echo: Interpretation Summary The estimated ejection fraction is 30 %. There is evidence of diastolic dysfunction. Hypokinesis of the apex, anterior wall and septum. Trivial tricuspid valve insufficiency. Left Heart Cath: CONCLUSIONS CAD as described. Severe LV dysfunction with EF of 25-30% with regional wall motion abnormalities as descvribed. No significant or MR. Successful thrombectomy and NATI to LAD as described RECOMMENDATIONS ASA Indefinitley Brilinta or plavix for at least 12 months Follow up with primary insecticide sprayer Consider stress testing to evaluate significance of RCA lesion if patient is asymptomatic or PCI if symptomatic. RAD/Chest 1 View (Portable) IMPRESSION: Mastoid congestion and airspace disease in the left lung suggestive of CHF. Consults: Cardiology - [place] Operations: None Procedures: 2-D Echocardiogram, Cardiac catheterization Summary of Care Provided: Hospital Course: The patient is a 59 year old F with past medical hx of morbid obesity who presented to the ER with chest pain described as tightness that woke her up from sleep with radiation into the arms and had nausea/vomiting and malaise. She had ST elevation on EKG in the anterior leads and Afib RVR with elevated troponin. She was taken for a heart cath and found to have 100% blockage in the LAD and underwent successful stent placement. She developed increased oxygen demand and LE edema. She was started on IV lasix for acute systolic CHF. She diuresed well and was transitioned to oral lasix. She was weaned off o2 at rest and with exertion. She converted to sinus rhythm after her heart cath. She was discharged home in stable condition on lasix, lisinopril, aspirin, atorvastatin, brilinta, and metoprolol. She will need to follow up with cardiology as directed and with her PCP in 1-2 weeks This patient was seen by Faustino Leon PA-C under the supervision of Doctor Nguyen. [] Patient Problems: Active and Suspected Problems (Last Updated 12/08/19 @ 08:29 by Candi Keane) History of coronary artery stent placement (Acute) 2.25 x 20 mm Synergy MR NATI to LAD 12/06/19 Atherosclerosis of coronary artery of [place] heart without angina pectoris (Acute) 2.25 x 20 mm Synergy MR NATI to LAD 12/06/19 STEMI (ST elevation myocardial infarction) (Acute) Morbid (severe) obesity due to excess calories (Acute) - Physical Exam Vitals/I&O's: Vital Signs Temp Pulse Resp BP Pulse Ox 97.7 F L 78 20 H 108/71 93 12/10/19 10:44 12/10/19 11:00 12/10/19 10:51 12/10/19 10:44 12/10/19 11:17 Oxygen Flow Rate (L/min) 2 Oxygen Delivery Method Room Air Weight: 236 lb 8.896 oz Body Mass Index (BMI) 39.9 Intake and Output for Last 24 Hours 12/08/19 12/09/19 12/10/19 23:59 23:59 23:59 Intake Total 1640.5 / 1640.5 1500 / 1500 220 / 220 Output Total 1350 / 1350 4450 / 4450 425 / 425 Balance 290.5 / 290.5 -2950 / -2950 -205 / -205 General: Alert, Oriented x3, Cooperative HEENT: Atraumatic, PERRLA, EOMI, Normocephalic Neck: Supple, No JVD, Negative Carotid Bruits Lungs: Normal air movement, No rales Cardiovascular: Regular rate, No murmurs Abdomen: Bowel Sounds Present, Soft, Non Tender Extremities: No edema, Capillary Refill Less than 3 Seconds Skin: No rashes, No breakdown Musculoskeletal: No Tenderness to Palpation of Joints or Extremities Neurological: Cranial nerves II-XII grossly intact Psych/Mental Status: Normal Affect, Appropriate, Alert and oriented to time, place, person, mood and affect Microbiology Past 72 Hours 12/08/19 08:00 Mucosa - Nasopharyngeal Respiratory Panel (PCR) - Final Laboratory Results 12/10/19 05:45: Sodium 141, Potassium 3.8, Chloride 107, Carbon Dioxide 28.0, Anion Gap 6, BUN 18, Creatinine 0.87, Estim Creat Clear Calc 66.79, Est GFR (MDRD) Af Amer 87, Est GFR (MDRD) Non-Af 72, BUN/Creatinine Ratio 20.8 H, Glucose 94, Calcium 8.6 Current Medications Acetaminophen (Tylenol) 650 mg PO Q6H PRN PRN PRN Reason: Pain Score 1-10/10 Last Admin: 12/07/19 15:15 Dose: 650 mg Documented by: Albuterol/Ipratropium (Duoneb) 3 ml INHALATION Q4HWA.RT [facility] Last Admin: 12/10/19 10:51 Dose: 3 ml Documented by: Aspirin (Ecotrin) 81 mg PO DAILY@0800 [facility] Last Admin: 12/10/19 07:47 Dose: 81 mg Documented by: Atorvastatin Calcium (Lipitor) 40 mg PO QHS [facility] Last Admin: 12/09/19 21:04 Dose: 40 mg Documented by: Atropine Sulfate () 0.5 mg IV UD PRN PRN Reason: HR <50 bpm Fluticasone Propionate (Flonase Nasal [place]) 1 spray NASAL BID [facility] Last Admin: 12/10/19 09:28 Dose: 1 spray Documented by: Furosemide (Lasix) 20 mg PO BID@1000,1800 [facility] Last Admin: 12/10/19 09:28 Dose: Not Given Documented by: Heparin Sodium (Beef Lung) (Heparin 500 Unit/5 Ml (100/Ml)) 500 unit IV UD PRN PRN Reason: HEPARIN FLUSH Heparin Sodium (Porcine) (Heparin Na) 5,000 unit SC Q8 [facility] Last Admin: 12/10/19 05:08 Dose: 5,000 unit Documented by: Sodium Chloride () 250 mls @ 15 mls/hr IV .[id number] PRN PRN Reason: Additional IVPB Infusion Labetalol HCl (Trandate) 5 mg IV X1 PRN PRN Reason: FOR SYSTOLIC PRESSURE > 160 Lisinopril (Zestril) 2.5 mg PO DAILY [facility] Last Admin: 12/10/19 10:16 Dose: 2.5 mg Documented by: Magnesium Hydroxide (Milk Of Magnesia) 30 ml PO DAILY PRN PRN Reason: Constipation Melatonin (Melatonin) 3 mg PO QHS PRN PRN Reason: INSOMNIA Metoprolol Succinate (Toprol Xl (Beta Kevin)) 50 mg PO DAILY [facility] Last Admin: 12/10/19 10:16 Dose: 50 mg Documented by: Ondansetron HCl (Zofran) 4 mg IV Q6H PRN PRN PRN Reason: NAUSEA/VOMITING Last Admin: 12/07/19 15:14 Dose: 4 mg Documented by: [facility] Last Admin: 12/10/19 07:47 Dose: 20 meq Documented by: Psyllium Hydrophilic Mucilloid (Metamucil) 1 packet PO DAILY PRN PRN Reason: Constipation Sodium Chloride () 10 - 40 ml IV UD PRN PRN Reason: SALINE FLUSH Last Admin: 12/09/19 13:20 Dose: 20 ml Documented by: Ticagrelor (Brilinta) 90 mg PO BID [facility] Last Admin: 12/10/19 09:28 Dose: 90 mg Documented by: Discharge Diet: Low fat/ Low Cholesterol, 2000 mg Sodium Diet Discharge Activity: Return to Normal Activity Home Medications: Medications to take at Discharge Aspirin E.C. [Ecotrin] 81 mg PO DAILY@0800 tab 12/10/19 Atorvastatin Calcium [Lipitor] 40 mg PO QHS #30 tab 12/10/19 Furosemide [Lasix] 20 mg PO BID@1000,1800 #60 tab 12/10/19 Lisinopril [Zestril] 2.5 mg PO DAILY #30 tab 12/10/19 Metoprolol(XL)Succ [Toprol Xl (Beta Kevin)] 50 mg PO DAILY #30 tab 12/10/19 Potassium Chloride [K-Dur] 20 meq PO DAILY #30 tab 12/10/19 Ticagrelor [Brilinta] 90 mg PO BID #120 tab 12/10/19 Following Prescrptions Were Given to Patient: Ticagrelor [Brilinta] 90 mg PO BID #120 tab Transmission Status: Received by [facility] Potassium Chloride [K-Dur] 20 meq PO DAILY #30 tab Transmission Status: Received by [facility] Furosemide [Lasix] 20 mg PO BID@1000,1800 #60 tab Transmission Status: Received by [facility] Atorvastatin Calcium [Lipitor] 40 mg PO QHS #30 tab Transmission Status: Received by [facility] Metoprolol(XL)Succ [Toprol Xl (Beta Kevin)] 50 mg PO DAILY #30 tab Transmission Status: Received by [facility] Lisinopril [Zestril] 2.5 mg PO DAILY #30 tab Transmission Status: Received by [facility] Other Amb Orders: Phase II, Outpatient Cardiac Rehab Location: None Selected Primary Care Physician: Eric Roe MD [Primary Care Provider] - Please follow up with your Primary Care Physician in: 1-2 weeks Please Follow Up With: Drake Burt MD When: as directed Disposition: Home Minutes spent on discharge:: 35 Patient Condition:: Stable Medical Necessity - Tobacco Use Smoking Status: Never smoker Tobacco Use: Non-smoker Meaningful Use Info Meaningful Use Diagnoses (Choose all that apply): AMI, CHF - AMI/Post PCI/Angioplasty Aspirin given w/in 24hrs of arrival?: Yes ASA at discharge?: Yes Antiplatelet Therapy at Discharge:: Yes Statins at discharge?: Yes Dangelo/ARB at discharge?: Yes Beta Kevin at discharge?: Yes Done w/ Acute SD measure.: Yes - CHF DANGELO/ARB ordered at discharge?: Yes Documented LVEF (%): 30 <Leslie Nguyen - Last Filed: 12/10/19 13:15> Discharge Date and Diagnosis - Primary Discharge Diagnosis Active and Suspected Problems (Last Updated 12/08/19 @ 08:29 by Candi Keane) History of coronary artery stent placement (Acute) 2.25 x 20 mm Synergy MR NATI to LAD 12/06/19 Atherosclerosis of coronary artery of [place] heart without angina pectoris (Acute) 2.25 x 20 mm Synergy MR NATI to LAD 12/06/19 STEMI (ST elevation myocardial infarction) (Acute) Morbid (severe) obesity due to excess calories (Acute) Hospital Course and Treatment Summary of Care Provided: This patient was seen in conjunction with ANGELIC Krause. I have independently interviewed and examined the patient and reviewed pertinent historical, laboratory, and other data. Please refer to ANGELIC Krause note for his patient's presentation, findings, and recommendations. I have reviewed and his note and concur with his documentation 59y/o female with no significant PMHx who presented with chest pain and was managed as Acute anterior STEMI. She underwent emergent cardiac cath with findings showing 100% occlusion of mid-LAD. She had thrombectomy an NATI placed. Subsequently patient developed a cough and had increased oxygen requirement. Further workup revealed acute systolic CHF, EF 30%. Patient was managed on IV lasix, oxygen, breathing treatments. She diuresed well and was off oxygen at discharge. She did not qualify for home oxygen. She had hypokalemia that was replaced. She was discharged on oral lasix, lisinopril, apirin, Brilinta, metoprolol and statin. She will follow-up with her PCP for repeat blood work within 1 week as well as follow-up with cardiology and cardiac rehab as scheduled. On the day of discharge, patient was seen and examined. Denied any new complains. Denied chest pain, dizziness, progressive SOB. Physical Exam: Gen: Comfortable, not pale, not jaundiced CVS:HS I +II, regular, no murmurs RESP: Diminished especially at lung bases GI: BS present and normal, soft, nontender, no palpable organs EXT:Bilateral pedal edema +1 - Physical Exam Vitals/I&O's: Vital Signs Temp Pulse Resp BP Pulse Ox 97.7 F L 78 20 H 108/71 93 12/10/19 10:44 12/10/19 11:00 12/10/19 10:51 12/10/19 10:44 12/10/19 11:17 Oxygen Flow Rate (L/min) 2 Oxygen Delivery Method Room Air Weight: 107.3 kg Body Mass Index (BMI) 39.9 Intake and Output for Last 24 Hours 12/08/19 12/09/19 12/10/19 23:59 23:59 23:59 Intake Total 1640.5 / 1640.5 1500 / 1500 220 / 220 Output Total 1350 / 1350 4450 / 4450 425 / 425 Balance 290.5 / 290.5 -2950 / -2950 -205 / -205 Microbiology Past 72 Hours 12/08/19 08:00 Mucosa - Nasopharyngeal Respiratory Panel (PCR) - Final Laboratory Results 12/10/19 05:45: Sodium 141, Potassium 3.8, Chloride 107, Carbon Dioxide 28.0, Anion Gap 6, BUN 18, Creatinine 0.87, Estim Creat Clear Calc 66.79, Est GFR (MDRD) Af Amer 87, Est GFR (MDRD) Non-Af 72, BUN/Creatinine Ratio 20.8 H, Glucose 94, Calcium 8.6 Current Medications Acetaminophen (Tylenol) 650 mg PO Q6H PRN PRN PRN Reason: Pain Score 1-10/10 Last Admin: 12/07/19 15:15 Dose: 650 mg Documented by: Albuterol/Ipratropium (Duoneb) 3 ml INHALATION Q4HWA.RT [facility] Last Admin: 12/10/19 10:51 Dose: 3 ml Documented by: Aspirin (Ecotrin) 81 mg PO DAILY@0800 [facility] Last Admin: 12/10/19 07:47 Dose: 81 mg Documented by: Atorvastatin Calcium (Lipitor) 40 mg PO QHS [facility] Last Admin: 12/09/19 21:04 Dose: 40 mg Documented by: Atropine Sulfate () 0.5 mg IV UD PRN PRN Reason: HR <50 bpm Fluticasone Propionate (Flonase Nasal [place]) 1 spray NASAL BID [facility] Last Admin: 12/10/19 09:28 Dose: 1 spray Documented by: Furosemide (Lasix) 20 mg PO BID@1000,1800 [facility] Last Admin: 12/10/19 09:28 Dose: Not Given Documented by: Heparin Sodium (Beef Lung) (Heparin 500 Unit/5 Ml (100/Ml)) 500 unit IV UD PRN PRN Reason: HEPARIN FLUSH Heparin Sodium (Porcine) (Heparin Na) 5,000 unit SC Q8 [facility] Last Admin: 12/10/19 05:08 Dose: 5,000 unit Documented by: Sodium Chloride () 250 mls @ 15 mls/hr IV .[id number] PRN PRN Reason: Additional IVPB Infusion Labetalol HCl (Trandate) 5 mg IV X1 PRN PRN Reason: FOR SYSTOLIC PRESSURE > 160 Lisinopril (Zestril) 2.5 mg PO DAILY [facility] Last Admin: 12/10/19 10:16 Dose: 2.5 mg Documented by: Magnesium Hydroxide (Milk Of Magnesia) 30 ml PO DAILY PRN PRN Reason: Constipation Melatonin (Melatonin) 3 mg PO QHS PRN PRN Reason: INSOMNIA Metoprolol Succinate (Toprol Xl (Beta Kevin)) 50 mg PO DAILY [facility] Last Admin: 12/10/19 10:16 Dose: 50 mg Documented by: Ondansetron HCl (Zofran) 4 mg IV Q6H PRN PRN PRN Reason: NAUSEA/VOMITING Last Admin: 12/07/19 15:14 Dose: 4 mg Documented by: Potassium Chlor[facility] ([facility]Dur) [facility] Last Admin: 12/10/19 07:47 Dose: 20 meq Documented by: Psyllium Hydrophilic Mucilloid (Metamucil) 1 packet PO DAILY PRN PRN Reason: Constipation Sodium Chloride () 10 - 40 ml IV UD PRN PRN Reason: SALINE FLUSH Last Admin: 12/09/19 13:20 Dose: 20 ml Documented by: Ticagrelor (Brilinta) 90 mg PO BID [facility] Last Admin: 12/10/19 09:28 Dose: 90 mg Documented by: Code Visit Inpatient E&M: [id number] Disch Hosp
== END 2019-12-10 13:30 | disposition home or self-care (01) | DRG 246 ==
LOC: ED 03:10 → ICU 03:28 → PCU 12-08 13:04
PROVIDERS: Physician Assistant; Admitting Provider Hospitalist; Emergency Provider Emergency Medicine; PCP Orthopaedic Surgery; Referring Provider Specialist; Visit Provider Internal Medicine
DX: I21.09 ST elevation (STEMI) myocardial infarction involving other coronary artery of anterior wall (principal); I50.21 Acute systolic (congestive) heart failure; J96.01 Acute respiratory failure with hypoxia; I11.0 Hypertensive heart disease with heart failure; I48.91 Unspecified atrial fibrillation; E78.5 Hyperlipidemia, unspecified; E66.01 Morbid (severe) obesity due to excess calories; I25.10 Atherosclerotic heart disease of native coronary artery without angina pectoris; Z68.39 Body mass index [BMI] 39.0-39.9, adult
CPT/HCPCS: 36415; 71045; 80048; 80053; 80061; 83735; 83880; 84100; 84443; 84484; 85025; 85027; 85610; 85730; 87633; 92941; 93005; 93306; 93458; 94640; 97802; 99251; 99284; J7030; J7040; J7050; Q9957; A4216; C1725; C1757; C1769; C1874; C1887; C1894; C8929; C9606; G0463; J1327; J1940; J2405; J3490; Q9967

== ENCOUNTER → 2019-12-21 09:44 | Outpatient (CLI) | payer SELFPAY ==
[2019-12-07 04:54] VITALS: BMI 39.9
[2019-12-07 08:42] VITALS: BMI 40.6
[2019-12-20 14:00] VITALS: BMI 37.3
--- NOTE | 2019-12-21 10:17 | CR.HP_ITS ---
CR - History & Physical - General Arrival date:: 12/21/19 Arrival time:: 10:00 Date of Referral:: 12/06/19 Date of CR Evaluation:: 12/21/19 Referring Physician: DR BURT Primary Diagnosis: PCI WITH STENT - History of Present Cardiac Event Onset Date: Enter Onset Date of cardiac illnesses in Comment field below Current stable Angina Pectoris:: No Acute Myocardial Infarction within 12 months:: Yes - WAS TOLD I HAD A HEART ATTACK Coronary Artery Bypass Graft:: No Heart valve replacement or repair:: No PTCA or coronary stenting:: Yes - STENT X1 Heart or Heart-Lung Transplant:: No Heart Failure EF <35%:: Yes - EF 30% Type of Symptoms:: TIGHT SQUEEZE AND MY ARMS HURT Interventions with present event:: STENT X1 Were there any complications?: NONE - Medications Home Medications: Ambulatory Orders Medication Instructions Recorded Aspirin E.C. [Ecotrin] 81 mg PO DAILY@0800 tab 12/10/19 atorvastatin 40 mg tablet 40 mg PO QHS #30 tab 12/20/19 furosemide 20 mg tablet 20 mg PO DAILY #30 tab 12/20/19 lisinopril 2.5 mg tablet 2.5 mg PO DAILY #30 tab 12/20/19 metoprolol succinate 50 mg 50 mg PO DAILY #30 tab 12/20/19 tablet,extended release 24 hr potassium chloride 20 mEq 20 meq PO DAILY #30 tab 12/20/19 tablet,extended release(part/cryst) ticagrelor 90 mg tablet 90 mg PO BID #60 tab 12/20/19 - Allergies Allergies/Adverse Reactions: Allergies No Known Allergies Allergy (Verified 12/20/19 14:08) - Sleep Disorder Evaluation Hx of Sleep Apnea: No Do you snore loudly (louder than talking or can be heard through closed doors)?: No Do you often feel tired/ fatigued/ sleepy during daytime?: No Has anyone observed you stop breathing during sleep?: No History of Hypertension (for STOP score): No - PT DENIES HAVING HIGH BLOOD PRESSURE BEFORE STENT STOP Results: Negative Advanced Directives - Advanced Directives Power of Cordwood Cutter: No Living Will: No Advance Directives Information Provided: Yes - WILL WALK PT TO MEDICAL RECORDS BEFORE SHE LEAVES, WANTS TO GET ADV DIR PAC Advance Directives on File: No DNR Order?:: No Past Medical History - Past Medical Illness Medical History: Past Medical History (Last Reviewed 12/20/19 @ 15:14 by Drake Burt MD) Atherosclerosis of coronary artery of [place] heart without angina pectoris (Acute) I25.10 2.25 x 20 mm Synergy NATI to LAD 12/06/19 STEMI (ST elevation myocardial infarction) (Acute) I21.3 Morbid (severe) obesity due to excess calories (Acute) E66.01 - Past Surgical History Surgical History: Past Surgical History (Last Reviewed 12/20/19 @ 15:14 by Drake Burt MD) History of coronary artery stent placement (Acute) Z95.5 2.25 x 20 mm Aakash HOWARD NATI to LAD 12/06/19 History of open reduction and internal fixation (ORIF) procedure Z98.890 right ankle Surgical History: - - Surgery in right ankle where she had screws and plate placed. - Family History Summary Family History: Family History (Last Reviewed 12/20/19 @ 15:14 by Drake Burt MD) Mother Cancer Brother CAD (coronary artery disease) stents Brother CAD (coronary artery disease) stents and CABG X 3 Social History - Smoking History Smoking Status: Never smoker - Alcohol Use Alcohol Usage: No - Substance Abuse Hx Substance Use: No - Occupation Occupation (List type of work in comments):: Homemaker - Hobbies, Recreation, Social Activities Hobbies: Reading, Other - GARDENING Recreational Activities: I am able to engage in most, but not all activities Social Environment - Status Marital Status: - Current Living Arrangements Living Environment:: Spouse - Children How many children do you have?: 4 Do any of your children live nearby?: Yes - Safety Do you feel safe in your surroundings?: Yes - Assistance Do you need any assistance at home?: NONE Review of Systems - Review of Systems Hints: Right click = Denies (Slash). Left click = Reports ([place]) Review of Present Symptoms: Reports: Dizziness/Lightheadedness - PT STATES SHE FEEL DIZZY/LIGHTHEADED WHEN HER BLOOD PRESSURE IS LOW. SHE DISCUSSED THIS YESTERDAY WITH HER WAREHOUSE HAND., Heart Arrhythmia/Irregularities - A FIBRILLATION AT TIME OFPCI/STENT. Denies: Shortness of Breath at Rest, Shortness of Breath with Exertion, PVD, Operative Discomfort, Angina, Wound Healing, Fatigue - Pain Is Patient Pain Free?: Yes Risk Factor Assessment - Chief Complaint Chief Complaint: CURRENT PCI/W STENT PT PRESENTS TODAY FOR CR EVALUATION - Vital Signs Temperature: 98.6 F Respiratory Rate: 12 Pulse Ox: 96 Blood Pressure: 100/70 Nailbeds:: PINK - Pulse Pulse Rate: 76 Pulse Rhythm: Regular - Hypertension How long have you been treated?: NONE BEFORE STENT On medication(s)?: LISINOPRIL, METOR=PROLOL Blood Pressure Sitting - Left Arm: 100/70 - Stress Stress: Recent - PTS IS UP IN TCU, PAST 7 WEEKS AND CURRENTLY, Long- standing - Blood Cholesterol/Lipids Total Cholesterol (mg/dL) Goal = less than 200 mg/dL: 198 HDL Cholesterol (mg/dL) Goal = less than 40 mg/dL: 49 LDL Cholesterol (mg/dL) Goal = less than 70 mg/dL: 130 Triglycerides (mg/dL) Goal = less than 150 mg/dL: 65 - Diabetes Nutrition Referral for Diabetes: No - Obesity Height: 5 ft 6 in Weight:: 247 lb Weight in Pounds: 247.0 lbs Body Mass Index (BMI): 39.9 Nutritional Referral for Obesity: Yes - BMI 39.9, ASHD, HTN - Physical Inactivity Physical Inactivity: Recreational activity - Risk Stratification Risk Guidelines: Lowest Risk: Risk Factor for Smoking, Risk Factor for Dyslipidemia, Risk Factor for Diabetes, Risk Factor for Hypertension, Risk Factor for Depression, Moderate Risk: Risk Factor for Sedentary Lifestyle, Highest Risk: Risk Factor for Obesity - For Smoking Smoking Risk Guidelines: Smoking Low Risk: None or quit greater than 6 months ago. Smoking Moderate Risk: Smoker or quit 6 months or less ago. Smoking High Risk: Smoker - For Dyslipidemia Dyslipidemia Risk Guidelines: Low Risk: Moderate Risk: High Risk: 15-25% fat 25.1-29% fat >/= 30% fat. <7% sat fat 7-9% sat fat >9% sat fat. <150 mg chol 150-299 mg chol >/= 300 mg chol. LDL <100 LDL 100-129 LDL >/= 130. Chol/HDL ratio <5.0 Chol/HDL ratio 5.0-6.0 Chol/HDL ratio >6.0. Triglycerides <100 Triglycerides 100-149 Triglycerides >/= 150 - For Diabetes Mellitus Diabetes Risk Guidelines: Diabetes Low Risk: HgA1c <6.5% and/or FBG <120. Diabetes Moderate Risk: HgA1c 6.6-7.9% and/or FBG 120-180. Diabetes High Risk: HgA1c >/= 8% and/or FBG >180 - For Obesity/Overweight Obesity/Overweight Risk Guidelines: Obesity Low Risk: BMI <25.0. Obesity Moderate Risk: BMI 25-29.9. Obesity High Risk: BMI >/= 30.0 - For Hypertension Hypertension Risk Guidelines: Hypertension Low Risk: Systolic <120 and Diastolic <80. Hypertension Moderate Risk: Systolic 120-139 and Diastolic 80-89. Hypertension High Risk: Systolic >/= 140 and Diastolic >/= 90 - For Sedentary Lifestyle Sedentary Lifestyle Risk Guidelines: Sedentary Lifestyle Low Risk: >/= 1,500 kcal/week. Sedentary Lifestyle Moderate Risk: 700-1,499 kcal/week. Sedentary Lifestyle High Risk: < 700 kcal/week - For Depression Depression Risk Guidelines: Depression Low Risk: Not clinically depressed. Depression Moderate Risk: Mildly depressed. Depression High Risk: Clinically depressed - Family History Family History: Family History (Last Reviewed 12/20/19 @ 15:14 by Drake Burt MD) Mother Cancer Brother CAD (coronary artery disease) Brother CAD (coronary artery disease) Motivation - Motivation to Participate On a scale of 1 to 10, how prepared are you to commit to attending program?: 10 What do you see as barriers to successfully being able to complete the program?: NONE, UNLESS HEALTH CHANGES What do you see as the benefits of succesfully completing the program? In other words, what do you hope to get out of participating in the program?: IMPROVED KNOWLEDGE, DIET/EATING HABITS, CONTROL RISK FACTORS, IMPROVE STRES Are there issues you are dealing with that will interfere with completing the program?: POSSIBLY HUSBANDS CURRENT HEALTH (CURRENT PCU PT) Do you have a spouse or signficant other, family or friends who will help support you to complete the program?: FAMILY AND FRIEND
--- NOTE | 2019-12-21 10:18 | CR.ITP_ITS ---
Diagnosis - General Information Admitting Diagnosis: PCI WITH STENT Personal Learning Style:: Audio/Visual, Demonstration, Group, Individual Preference, Written Barriers to Learning: No Barriers Stage of change r/t lifestyle modifications:: Action Gave educational material for:: Treating Heart Disease, Emotions & Heart Disease, Stress Management & Relaxation, Sleep Disorders & Heart Disease, How The Heart Works - INFORMED OF THE ON-LINE EDUCATION MATERIAL AVAIL, BOOKLET GIVEN, What it means to have Heart Disease, How Coronary Artery Disease is Diagnosed, Heart Procedures, What Heart Medications Do, Risk Factors & Modifications, Living an Active Life, Nutrition - Education/Goals Individual Counseling: Initial Assessment: Overweight/Obesity, Metabolic Syndrome (as evidenced by 3 of 5 A-E below), Low HDL <40/Males or <50/Females, Sedentary Lifestyle, Stress - SELF AND HEALTH Cardiac Rehabilitation Goals: 1. Maintain the individual as the primary focus of care. 2. To improve the patient's quality of life. 3. Identification of cardiac risk factors and provide cardiac risk factor management. 4. Enhance the psychosocial status of the patient. 5. Reconditioning enough to allow the patient to resume customary activities. 6. Control symptoms of cardiac disease Personal Goals: Initial Assessment: Improve management of stress and emotions, Improve knowledge of cardiac disease, Improve muscle strength and endurance, Improve diet and eating habits (eat healthier), Control risk factors (learn risk factor modification) Scale for measuring improvement of personal goals: Enter appropriate number in Comments. 2 = Unchanged. 3 = Slightly Better. 4 = Moderate Improvement. 5 = Met my Goal - Diagnosis & Disease Process Outcomes/Goals: Pt IDs own risk factors & lifestyle modifications by Session 10, Verbalizes symptoms of angina & response by session 3., Pt independently manages, Other Additional Outcomes/Goals: - NEW CR PATIENT Plan/Interventions: Assist Pt to ID & engage in lifestyle modification to reduce CVD risk, Instruct on individual risk factors, Review symptoms of angina & emergency actions, Review secondary diagnosis & identify educational needs., Other see comment - NEW CR PATIENT - Safety Referral to Physical Therapy: No Referral to [facility] Case Management: No Fall Risk Assessed:: No Assistive Devices:: None Exercise - Initial Assessment - Visit Date of Eval: 12/21/19 Mets: Pre-: >3 METS for 30 minutes by discharge - Physician Prescribed Exercise Modalities: Treadmill, Biodyne, Rower, Airdyne, NuStep, SciFit Frequency: 3x/week for 12 weeks [36 sessions] Intensity: 60-80% of age predicted maximum heart rate reserve Target Heart Rate:: 106-138 Resting Blood Pressure: 100/70 EKG Type: A FIB RVR Current Physical Activity or Exercising minutes: MINIMAL DUE TO HUSBANDS HEALTH ISSUES AND SELF - Outcomes & Goals Goals:: Verbalizes understanding of THR, RPE & goal METS by session 6, Documents in home exercise log/reports 30 min aerobic 5 day/wk by DC, Demonstrates accurate pulse taking by DC, Other additional outcome/goals: see below - NEW CR PATIENT - Intervention & Plan Exercise Program Goals: Instruct on personal THR & RPE, Instruct on MET level & personal MET goal, Show patient to take own pulse /validate performance until accurate, Instruct on home exercise, Other additional plan/int - NEW CR PATIENT - Physical Activity Home Exercise Physical Activity - Home Exercise: Safe Exercise, Warm-up, Self-monitoring, Cool-Down, Home Exercise > 30 min Daily, Sitting Time <3 hours/daily - Outcomes & Goals Outcomes/Goals: Demonstrates correct Warm-up/exercise Cool-Down (S3) if = 2.5 METs, Verbalizes symptoms of exercise intolerance by Session 3 (S3), Demonstrate safe equipment use (S3) & follows exercise prescrition (6), Other: See below - NEW CR PATIENT - Intervention & Plan Plan/Intervention: Instruct warm-up & cool-down if exercising at > 2 METs, Instruct on symptoms of exercise intolerance & actions to take, Instruct & monitor on saf, Assess intial functional capacity & safety risk, Other See below - NEW CR PATIENT Nutrition - Initial Assessment - Program Goals Nutrition Program Goals: LDL <100 optimal. 100 - 129 Near optimal. 130 - 159 Borderline High. 160 - 189 High. Total Cholesterol <200 desirable. 200 - 239 Borderline High. >/= 240 High. HDL < 40 Low >/=60 High. Triglycerides <150 desirable. <199 optimal. VlDL 5 - 40. HgbA1C <7%. BMI <25 Patient has diagnosis of Hyperlipidemia (ICD E78)?: Yes - Visit Date of Assessment:: 12/21/19 - Cholesterol/Lipids Triglycerides (mg/dL): 65 Total Cholesterol (mg/dL): 198 LDL Cholesterol (mg/dL): 130 HDL Cholesterol (mg/dL): 49 Lipid Medication: ATORVASTASTIN Determine presence & major risk factors that modify LDL goal: Hypertension or hypertensive medication Outcomes/Goals: Pt IDs own risk factors & lifestyle modifications by Session 10, Verbalizes symptoms of angina & response by session 3., Pt independently manages, Other Additional Outcomes/Goals: - NEW CR PATIENT Intervention/Plan: Advocate for lipid panel cholesterol medication if applicable, Instruct on personal lipid levels & lipid goals/NCEP guidelines, Instruct on cholesterol, Other additional plan/int - NEW CR PATIENT Referral to dietitian:: Yes - BMI 39.9, HTN, ASHD PT VERY INTERESTED IN LEARNING/MAKING DIETARY CHANGES - Diabetes (Other Core Measures) Diabetes Type: Not Applicable Referral to Diabetic Clinic:: No - Weight Mgt (Other Care) Not Applicable: Yes Height: 5 ft 6 in Weight:: 247 lb BMI: 39.9 Diagnosis Overweight/Obesity BMI> 30% ICD-10 E66: No Diagnosis High BMI/Morbid Obesity BMI> 35% ICD-10 Z68: Yes Outcomes/Goals: Pt sets, maintains & shows weight loss goal & trend during rehab, Other additional outcomes/goals - PT VERY INTERESTED IN LEARNING, ENCORPORTING DIETARY CHANGES Intervention/Plan: Instruct on ideal BMI & set weight loss goal w/patient, Assist pt to ID & incorporate diet changes for weight loss by S9, Refer to Structured Weight Loss program as appropriate, Encourage goal of using 250- 300dcal per session for weight loss, Other additional plan/interventions - NEW CR PATIENT - Healthy Eating Habits Will attend diet classes:: Yes Outcomes/Goals:: Consume diet rich in vegs,fruits,whole grain/high fiber,fish,lean meat, Limit sat/trans fats,cholesterol & added salts & sugars, Other additional outcome/goals: - NEW CR PATIENTS Intervention/Plan:: Assess current eating habits, Other Additional plan/interventions - Education Gave educational materials for:: Signs & symptoms of hypoglycemia, Signs & symptoms of hyperglycemia, Relate diabetes to coronary artery disease - EDUCATION BOOKLET GIVEN TO PT, Healthy eating Medical - Initial Assessment - Visit Date of Eval: 12/21/19 - Medication Compliance Preventative Medication(s):: Aspirin, TONI inhibitor, Ticagrelor/P2Y12 inhibitor, Statin/lipid, Beta dania H/O mental health issues: depression, anxiety, or addiction?: No Doesn?t believe in the benefits of treatment?: No Believes medications are unnecessary or harmful?: No Has a concern about medication side effects?: No Expresses concern over the cost of medications?: No Outcomes/Goals: Verbalizes medications,desired effect & common side effects @ DC, Pt self-reports following medication regimen, Keeps card in wallet w/medications listed by DC, Other additional outcome/goals: - NEW CR PATIENT Interventions/plans: Instruct on medication effects & side effects, Review medication list w/patient every two weeks, Instruct importance of taking meds as ordered & assist problem solving, Other additional - NEW CR PATIENT - Tobacco Use Tobacco Use: Non-smoker - Hypertension Hypertension Diagnosis:: Hypertension ICD-10 I10 Resting Blood Pressure:: 100/70 [place] [employer] Hypertension Guidelines: [place] [employer] Hypertension Guidelines. Normal BP Less than 120/80. Elevated BP 120/80. Hypertension Stage 1: BP 130-139/80-89. Hypertesnion Stage 2: BP 140 or higher/90 or higher. Hypertension Crisis: BP higher than 180/120 Outcomes/Goals: Able to verbalize/achieve optimal blood pressure <130/80, Incorporates diet changes & exercise for blood pressure control by DC, Other additional outcomes/goals - NEW CR PATIENT Interventions/plan: Instruct on optimal blood pressure, hypertension & medications, Instruct on effects of sodium, alcohol, stress, exercise &hypertension - NEW CR PATIENT, Other additional plan/interventions - Tobacco Cessation Referral Smoking Cessation Referral:: No Individual Education/Counseling:: No Education Schedule Given:: No Psychosocial - Initial Assess - VIsit Date of Eval: 12/21/19 Not Applicable: Yes - NO PSYCHOSOCIAL MEDICAL DIAGNOSIS - Target Goals Target Goals: Assess presence or absence of depression. Using a valid screening tool, maximizes coping skills. Positive support system - Psychosocial Test Tool Used:: Kodi Kaye QOL Cardiac, PHQ-9 Questionnaire phq-9 Severity: Severity. 1-4 Minimal Depression. 5-9 Mild Depression. 10-14 Moderate Depression. 15-19 Moderately Sever Depression. 20-27 Severe Depression. Rule: See PHQ-9 Score: 5 Total Score:: 5 - Referral to Behavioral Health PS - Interventions: Yes Referral to Physician if PHQ-9 if score is 5-9:, Yes Attend Stress Management Classes - CR CLASSES, No Referral to Behavioral Health if PHQ-9 score >9:, No Referral to [facility] - Outcomes/Goals: See list Psychosocial Outcomes/Goals:: ID's personal stressors & 2 strategies to manage stress by discharge, Other Additional outcome/goals: - NEW CR PATIENT - Intervention/Plan: See List Interventions/Plan:: Assess stressors,coping strategies & signs of derpression on admission, Instruct/assist pt to develop coping & personal stress Mgt strategies, Refer to Behavioral Health if appropriate, Refer to Physician if appropriate, Instruct patient to recognize signs & symptoms of depression, Instruct patient to recog, Other additional plan/intervention - NEW CR PATIENT. HAS SELF STRESS AND HAS HEALTH ISSUES AT PRESENT, LONG-STANDING Patient Health Questionnaire Initial Assessment 1. Little interest or pleasure in doing things: Several days 2. Feeling down, depressed, or hopeless: Several days 3. Trouble falling or staying asleep, or sleeping too much: More than half the days 4. Feeling tired or having little energy: Several days 5. Poor appetite or overeating: Not at all 6. Feeling bad about yourself -- or that you are a failure or have let yourself or your family down: Not at all 7. Trouble concentrating on things, such as reading the newspaper or watching television: Not at all 8. Moving or speaking so slowly that other people could have noticed. Or the opposite - being so fidgety or restless that you have been moving around a lot more than usual: Not at all 9. Thoughts that you would be better off , or of hurting yourself in some way: Not at all How difficult have these problems made it for you to do your work, take care of things at home, or get along with other people?: Somewhat difficult Total Score: 5 OSORIO-Q SV Test - Statements CAD is a disease of the arteries in the heart: False Examples of risk factors for heart disease: True Angina is chest pain or discomfort: I Don't Know The benefits of resistance training include: I Don't Know Eating more meat and dairy products: False Anti-platelet medications such as aspirin are important: True The only effective way to manage stress: False An exercise warm-up slowly increases heart rate: True Prepared, processed foods usually have high sodium: True Depression is common after a heart attack: I Don't Know The statin medications lower cholesterol: True To control blood pressure, lower the amount of sodium: I Don't Know If someone gets chest discomfort during walking: I Don't Know Transfats are partially hydrogenated vegetable oils: True Sleep apnea that is not treated increases the risk: I Don't Know To control cholesterol, one should become a vegetarian: I Don't Know Someone knows if he/she is exercising at the right level: I Don't Know Diabetes cannot be prevented with exercise & health eating: True Stress is a large risk for heart attack: I Don't Know A diet that can help lower blood pressure is rich in: True - Total Score Total Correct Responses: 10 Self-Efficacy Initial Assessment We would like to know how confident you are in doing certain activities. Please select your confidence level for:: Select your confidence level for the following using the scale 1-10 where 1 is not at all confident and 10 is totally confident. Your score is the average of all 6 responses. Fatigue: How confident are you that you can keep the fatigue caused by your disease from interfering with the things you want to do? Select Number: 3 Physical Discomfort or Pain: How confident are you that you can keep the physical discomfort or pain of your disease from interfering with the things you want to do? Emotional Distress: How confident are you that you can keep the emotional distre ss caused by your disease from interfering with the things you want to do? Select Number: 4 Other Symptoms or Health Problems: How confident are you that you can keep other symptoms or health problems from interfering with the things you want to do? Select Number: 5 Different Tasks and Activities: How confident are you that you can do the different tasks and activities needed to manage your health condition so as to reduce your need to see a doctor? Select Number: 9 Medication: How confident are you that you can do things other than just taking medication to reduce how much your illness affects your everyday life? Select Number: 10 Nutrition Survey - Nutrition Survey Instructions Scoring Instructions: Scoring is as follows: Yes = 1 points. No = 0 point. Patient score that is >/=12 is considered to be at potential nutritional risk and could benefit from a referral to a registered dietitian. - Nutrition Survey Initial Have you lost >10 lbs over the past 2 months without trying?: No Are you following a special diet at home for diabetes, low fat, or low salt?: Y es Are you interested in meeting with a dietitian for help understanding your diet?: Yes Do you eat less than 3 meals a day?: Yes Do you eat fatty meats (acevedo, sausage, ribs, etc), fried foods, desserts, large amounts of salad dressings, margarine, butter, or cheese most days?: Yes Do you have food allergies? [Enter types in comment field]: No Do you eat in restaurants more than 3 times a week?: No Do you season food with salt, seasoning salt, or garlic salt?: Yes Do you used canned, boxed, frozen meals, or soups, seasoning packets?: Yes Total Score:: 6
[2019-12-21 10:54] VITALS: BP 100/70; PULSE 76; RESP 12; TEMP 37; O2SAT 96; BMI 39.9
[2019-12-21 11:33] VITALS: BP 100/70; BMI 39.9
== END ==
PROVIDERS: PCP Orthopaedic Surgery; Referring Provider Specialist; Visit Provider Specialist
DX: Z95.5 Presence of coronary angioplasty implant and graft (principal)

== ENCOUNTER 2020-01-14 09:15 | Outpatient (RCR) | payer OTHER, SELFPAY ==
[2019-12-07 08:42] VITALS: BMI 40.6
[2019-12-20 14:00] VITALS: BMI 37.3
== END 2020-01-15 23:59 ==
LOC: CR 09:15
PROVIDERS: PCP Orthopaedic Surgery; Referring Provider Specialist; Visit Provider Specialist
DX: I21.3 ST elevation (STEMI) myocardial infarction of unspecified site (principal); I25.10 Atherosclerotic heart disease of native coronary artery without angina pectoris; Z95.5 Presence of coronary angioplasty implant and graft
CPT/HCPCS: 93798

== ENCOUNTER 2020-01-31 09:15 | Outpatient (RCR) | payer OTHER, SELFPAY ==
[2019-12-21 10:54] VITALS: BMI 39.9
[2019-12-21 11:33] VITALS: BMI 39.9
--- NOTE | 2020-01-19 08:29 | PCM.CR.ITP ---
Diagnosis - General Information Admitting Diagnosis: PCI w/coronary stenting Personal Learning Style:: Audio/Visual, Written Barriers to Learning: No Barriers Stage of change r/t lifestyle modifications:: Action Gave educational material for:: Treating Heart Disease, Emotions & Heart Disease, Stress Management & Relaxation, Sleep Disorders & Heart Disease, How The Heart Works, What it means to have Heart Disease, How Coronary Artery Disease is Diagnosed, Heart Procedures, What Heart Medications Do, Risk Factors & Modifications, Living an Active Life, Nutrition - Education/Goals Individual Counseling: Initial Assessment: Abnormal Cholesterol Levels, High Blood Pressure, Overweight/Obesity Cardiac Rehabilitation Goals: 1. Maintain the individual as the primary focus of care. 2. To improve the patient's quality of life. 3. Identification of cardiac risk factors and provide cardiac risk factor management. 4. Enhance the psychosocial status of the patient. 5. Reconditioning enough to allow the patient to resume customary activities. 6. Control symptoms of cardiac disease Personal Goals: Initial Assessment: Improve management of stress and emotions, Improve knowledge of cardiac disease, Improve muscle strength and endurance, Improve diet and eating habits (eat healthier), Control risk factors (learn risk factor modification) Scale for measuring improvement of personal goals: Enter appropriate number in Comments. 2 = Unchanged. 3 = Slightly Better. 4 = Moderate Improvement. 5 = Met my Goal - Diagnosis & Disease Process Outcomes/Goals: Pt IDs own risk factors & lifestyle modifications by Session 10, Verbalizes symptoms of angina & response by session 3., Pt independently manages Plan/Interventions: Assist Pt to ID & engage in lifestyle modification to reduce CVD risk, Instruct on individual risk factors, Review symptoms of angina & emergency actions, Review secondary diagnosis & identify educational needs. 30 day Reassessments:: Progressing Exercise - 30-day Assessment - Visit Date of Eval: 01/19/20 Session #:: 11 - Physician Prescribed Exercise Modalities: Treadmill, Airdyne, NuStep Frequency: 3x/week for 12 weeks [36 sessions] Intensity: 60-80% of age predicted maximum heart rate reserve Current METSs:: 4.0 increase from 3.0 Target Heart Rate:: 106-138 Current RPE:: 12-13 Maximum Excercise HR:: 120 Resting Blood Pressure: 110/56 - controlled Maximum Exercise Blood Pressure: 150/78 EKG Type: NSR to sinus tachycardia with T wave inversion without ectopy. Current Physical Activity or Exercising minutes: 30-60 minutes BID - Outcomes & Goals Goals:: Verbalizes understanding of THR, RPE & goal METS by session 6, Documents in home exercise log/reports 30 min aerobic 5 day/wk by DC, Demonstrates accurate pulse taking by DC - Intervention & Plan Exercise Program Goals: Instruct on personal THR & RPE, Instruct on MET level & personal MET goal, Show patient to take own pulse /validate performance until accurate, Instruct on home exercise - 30-day Reassessments 30 day Reassessments:: Progressing - Physical Activity Home Exercise Physical Activity - Home Exercise: Safe Exercise, Warm-up, Self-monitoring, Cool-Down, Home Exercise > 30 min Daily, Sitting Time <3 hours/daily - Outcomes & Goals Outcomes/Goals: Demonstrates correct Warm-up/exercise Cool-Down (S3) if = 2.5 METs, Verbalizes symptoms of exercise intolerance by Session 3 (S3), Demonstrate safe equipment use (S3) & follows exercise prescrition (6) - Intervention & Plan Plan/Intervention: Instruct warm-up & cool-down if exercising at > 2 METs, Instruct on symptoms of exercise intolerance & actions to take, Instruct & monitor on saf, Assess intial functional capacity & safety risk - 30-day Reassessments 30 day Reassessments:: Progressing Nutrition - 30-Day Assessment - Program Goals Nutrition Program Goals: LDL <100 optimal. 100 - 129 Near optimal. 130 - 159 Borderline High. 160 - 189 High. Total Cholesterol <200 desirable. 200 - 239 Borderline High. >/= 240 High. HDL < 40 Low >/=60 High. Triglycerides <150 desirable. <199 optimal. VlDL 5 - 40. HgbA1C <7%. BMI <25 Patient has diagnosis of Hyperlipidemia (ICD E78)?: Yes - Visit Date of Assessment:: 01/19/20 Session #:: 11 - Cholesterol/Lipids Triglycerides (mg/dL): 65 Total Cholesterol (mg/dL): 198 LDL Cholesterol (mg/dL): 136 HDL Cholesterol (mg/dL): 49 Lipid Medication: yes Determine presence & major risk factors that modify LDL goal: Hypertension or hypertensive medication, Age men > 45 years; women >/= 55 years Outcomes/Goals: Pt IDs own risk factors & lifestyle modifications by Session 10, Verbalizes symptoms of angina & response by session 3., Pt independently manages Intervention/Plan: Instruct on personal lipid levels & lipid goals/NCEP guidelines, Instruct on cholesterol Referral to dietitian:: Yes 30-day Reassessments:: Progressing - Diabetes (Other Core Measures) Diabetes Type: Not Applicable - Weight Mgt (Other Care) Not Applicable: No Height: 5 ft 6 in Weight:: 233 lb - unchanged BMI: 37.5 Diagnosis Overweight/Obesity BMI> 30% ICD-10 E66: Yes Diagnosis High BMI/Morbid Obesity BMI> 35% ICD-10 Z68: Yes Outcomes/Goals: Pt sets, maintains & shows weight loss goal & trend during rehab Intervention/Plan: Instruct on ideal BMI & set weight loss goal w/patient, Assist pt to ID & incorporate diet changes for weight loss by S9, Refer to Structured Weight Loss program as appropriate, Encourage goal of using 250-300dcal per session for weight loss 30 day Reassessments:: Not Met - Healthy Eating Habits Will attend diet classes:: Yes Outcomes/Goals:: Consume diet rich in vegs,fruits,whole grain/high fiber,fish,lean meat, Limit sat/trans fats,cholesterol & added salts & sugars Intervention/Plan:: Assess current eating habits 30-day Reassessments:: Progressing - Education Gave educational materials for:: Healthy eating Medical- 30-Day Assessment - Visit Date of Eval: 01/19/20 Session #:: 11 - Medication Compliance Preventative Medication(s):: Aspirin, Ticagrelor/P2Y12 inhibitor, Statin/lipid, Beta dania H/O mental health issues: depression, anxiety, or addiction?: No Doesn?t believe in the benefits of treatment?: No Believes medications are unnecessary or harmful?: No Has a concern about medication side effects?: No Expresses concern over the cost of medications?: No Outcomes/Goals: Verbalizes medications,desired effect & common side effects @ DC, Pt self-reports following medication regimen, Keeps card in wallet w/medications listed by DC Interventions/plans: Instruct on medication effects & side effects, Review medication list w/patient every two weeks, Instruct importance of taking meds as ordered & assist problem solving 30-day Reassessments:: Progressing - Tobacco Use Tobacco Use: Non-smoker - Hypertension Hypertension Diagnosis:: Hypertension ICD-10 I10 Resting Blood Pressure:: 110/56 - controlled [place] [employer] Hypertension Guidelines: [place] [employer] Hypertension Guidelines. Normal BP Less than 120/80. Elevated BP 120/80. Hypertension Stage 1: BP 130-139/80-89. Hypertesnion Stage 2: BP 140 or higher/90 or higher. Hypertension Crisis: BP higher than 180/120 Peak Exercise Blood Pressure:: 150/78 Outcomes/Goals: Able to verbalize/achieve optimal blood pressure <130/80, Incorporates diet changes & exercise for blood pressure control by DC Interventions/plan: Instruct on optimal blood pressure, hypertension & medications, Instruct on effects of sodium, alcohol, stress, exercise &hypertension 30 day Reassessments:: Progressing - Tobacco Cessation Referral Smoking Cessation Referral:: No Individual Education/Counseling:: No Education Schedule Given:: Yes Psychosocial - 30-Day Assess - VIsit Date of Eval: 01/19/20 Session #:: 11 Not Applicable: Yes Self-reported stressors: Family, Medical/Health, Recent Illness - Target Goals Target Goals: Assess presence or absence of depression. Using a valid screening tool, maximizes coping skills. Positive support system - Psychosocial Test Tool Used:: [employer] QOL Cardiac, PHQ-9 Questionnaire phq-9 Severity: Severity. 1-4 Minimal Depression. 5-9 Mild Depression. 10-14 Moderate Depression. 15-19 Moderately Sever Depression. 20-27 Severe Depression. Rule: See PHQ-9 Score: 6 - Patient under a lot of stress with 's medical issues and now her own. Total Score:: 6 - Referral to Behavioral Health PS - Interventions: Yes Referral to Physician if PHQ-9 if score is 5-9: - High levels of stress currently., Yes Attend Stress Management Classes, No Referral to Behavioral Health if PHQ-9 score >9:, No Referral to [facility] - Outcomes/Goals: See list Psychosocial Outcomes/Goals:: ID's personal stressors & 2 strategies to manage stress by discharge - Intervention/Plan: See List Interventions/Plan:: Assess stressors,coping strategies & signs of derpression on admission, Instruct/assist pt to develop coping & personal stress Mgt strategies, Refer to Behavioral Health if appropriate, Refer to Physician if appropriate, Instruct patient to recognize signs & symptoms of depression, Instruct patient to recog - 30-day Reassessments: 30 day Reassessments:: Progressing Patient Health Questionnaire 30-Day Re-eval Assessment 1. Little interest or pleasure in doing things: Several days 2. Feeling down, depressed, or hopeless: Several days 3. Trouble falling or staying asleep, or sleeping too much: More than half the days 4. Feeling tired or having little energy: Several days 5. Poor appetite or overeating: Not at all 6. Feeling bad about yourself -- or that you are a failure or have let yourself or your family down: Not at all 7. Trouble concentrating on things, such as reading the newspaper or watching television: Several days 8. Moving or speaking so slowly that other people could have noticed. Or the opposite - being so fidgety or restless that you have been moving around a lot more than usual: Not at all 9. Thoughts that you would be better off , or of hurting yourself in some way: Not at all How difficult have these problems made it for you to do your work, take care of things at home, or get along with other people?: Somewhat difficult Total Score: 6 Self-Efficacy 30-Day Re-eval Assessment We would like to know how confident you are in doing certain activities. Please select your confidence level for:: Select your confidence level for the following using the scale 1-10 where 1 is not at all confident and 10 is totally confident. Your score is the average of all 6 responses. Fatigue: How confident are you that you can keep the fatigue caused by your disease from interfering with the things you want to do? Select Number: 3 Physical Discomfort or Pain: How confident are you that you can keep the physical discomfort or pain of your disease from interfering with the things you want to do? Select Number: 4 Emotional Distress: How confident are you that you can keep the emotional distress caused by your disease from interfering with the things you want to do? Select Number: 5 Other Symptoms or Health Problems: How confident are you that you can keep other symptoms or health problems from interfering with the things you want to do? Select Number: 6 Different Tasks and Activities: How confident are you that you can do the different tasks and activities needed to manage your health condition so as to reduce your need to see a doctor? Select Number: 9 Medication: How confident are you that you can do things other than just taking medication to reduce how much your illness affects your everyday life? Select Number: 10 Total Score:: 6
[2020-01-19 08:47] VITALS: BP 110/56; BP 150/78; BMI 37.5
== END 2020-02-15 23:59 ==
LOC: CR 09:15
PROVIDERS: PCP Orthopaedic Surgery; Referring Provider Specialist; Visit Provider Specialist
DX: I21.3 ST elevation (STEMI) myocardial infarction of unspecified site (principal); I25.10 Atherosclerotic heart disease of native coronary artery without angina pectoris; Z95.5 Presence of coronary angioplasty implant and graft
CPT/HCPCS: 93798

== ENCOUNTER → 2020-03-23 06:47 | Outpatient (CLI) | payer SELFPAY ==
[2019-12-07 08:42] VITALS: BMI 40.6
[2019-12-20 14:00] VITALS: BMI 37.3
[2019-12-21 10:54] VITALS: BMI 39.9
[2020-01-19 08:47] VITALS: BMI 37.5
--- NOTE | 2020-03-24 12:21 | STRESSREP ---
Stress Test Report Date: 03/23/2020 Procedure: Exercise tolerance test/imaging study Indications: Suspected ischemia Consent: Per the patient Procedure: The patient exercised on a James protocol for 4 minutes and 45 seconds achieving a peak heart rate of 153 bpm (93 % predicted maximal heart rate) with a peak blood pressure 132/74 mmHg and a peak MET capacity of 6.7 METs. The baseline ECG demonstrated normal sinus rhythm, prior anterior IA. The peak exercise ECG demonstrated no significant ischemic changes. EKG during recovery revealed no significant ischemic changes [There were no cardiac dysrhythmias pretest, during exercise, or recovery]. The functional capacity was considered decreased for age. There was [no complaint of chest discomfort during exercise or recovery]. The examination was discontinued secondary to shortness of breath. Impression: 1. Technically adequate (percent predicted maximal heart rate greater than 85%) exercise tolerance test 2. Stress test is negative for exercise-induced EKG changes of ischemia 3. The test test is negative for exercise-induced chest pain 4. Functional capacity is decreased for age 5. Nuclear images pending Myocardial perfusion imaging study: Technique: The patient was injected with 15 mCi of technetium 99m Cardiolite and subsequently rest SPECT Cardiolite nuclear imaging was obtained in the horizontal long, vertical long, and short axis views. The patient exercised on a James protocol. Please see above for details. The patient was injected with 45 mCi of technetium 99m Cardiolite and subsequently stress SPECT Cardiolite nuclear imaging was obtained in the horizontal long, vertical long, and short axis views. A gated Cardiolite study at peak stress was obtained. Interpretation: Rest and stress SPECT Cardiolite nuclear imaging status post realignment, normalization, and attenuation correction, demonstrates severely decreased to absent radioisotope uptake in the apex on both the rest and stress images. There is no significant reversibility suggestive of significant ischemia. The gated Cardiolite study demonstrates apical hypokinesis. The reported LVEF is 49 %. These findings are suggestive of prior apical myocardial infarction with no evidence of ischemia Impression: 1. There is no evidence of significant ischemia. There is evidence of prior apical myocardial infarction. 2. The gated Cardiolite study reports an LVEF of 49 %. This note was generated with [employer] software. It may contain incorrect words, spelling, and punctuation that were not noted in checking the note before signing.
== END ==
PROVIDERS: PCP Orthopaedic Surgery; Referring Provider Specialist; Visit Provider Specialist
DX: I25.10 Atherosclerotic heart disease of native coronary artery without angina pectoris (principal); I25.2 Old myocardial infarction; Z95.5 Presence of coronary angioplasty implant and graft
CPT/HCPCS: 78452; 93017; A9500

== ENCOUNTER → 2021-06-05 16:09 | Outpatient (CLI) | payer OTHER, SELFPAY ==
[2020-01-19 08:47] VITALS: BMI 37.5
[2021-06-05 15:36] VITALS: BMI 37.1
[2021-06-05 17:28] LABS: Anion Gap 5 (5-15); BUN 14 mg/dL (7-18); BUN/Creat Ratio 16.6 RATIO (10-20); Calcium,Total 8.4 mg/dL (8.5-10.1); Chloride 107 mmol/L (98-107); Creatinine, Serum 0.84 mg/dL (0.55-1.02); EST Glomerular Filtration Rate 74 mL/min (>60); Est Glom Filt Rate - Afr Amer 89 mL/min (>60); Glucose 101 mg/dL (74-106); Potassium 3.5 mmol/L (3.5-5.1); Sodium Level 141 mmol/L (136-145)
== END ==
PROVIDERS: PCP Orthopaedic Surgery; Visit Provider Internal Medicine Cardiovascular Disease
DX: I25.5 Ischemic cardiomyopathy (principal)
CPT/HCPCS: 36415; 80048

== ENCOUNTER 2021-06-17 09:57 | Observation (INO) | payer OTHER, SELFPAY ==
[2020-01-19 08:47] VITALS: BMI 37.5
[2021-06-05 15:36] VITALS: BMI 37.1
[2021-06-17] VITALS (12 sets, daily range): BP systolic 90–136; BP diastolic 46–73; PULSE 50–64; RESP 15–18; TEMP 36.4–36.6; O2SAT 94–99; BMI 37.5
--- NOTE | 2021-06-17 10:19 | EKG12_ITS ---
Test Reason : SYNCOPE Blood Pressure : / mmHG Vent. Rate : 051 BPM Atrial Rate : 051 BPM P-R Int : 206 ms QRS Dur : 078 ms QT Int : 450 ms P-R-T Axes : 017 027 045 degrees QTc Int : 414 ms Sinus bradycardia Low voltage QRS T wave abnormality, consider anterior ischemia Abnormal ECG Confirmed by BLANKA CASTREJON, JOSE ([id number]), editor department CHET FREDERICK ([id number]) on 06/21/2021 1:19:01 PM Referred By: RU Confirmed By:JOSE MOSCOSO MD
--- NOTE | 2021-06-17 10:20 | EDS_ITS ---
HPI History of Present Illness Chief Complaint: Syncope Detail of Chief Complaint: Syncope while in mu-ism today Informant: patient Narrative Narrative: Patient presents to the emergency department with complaint of a syncopal episode while in mu-ism today. Patient states that she was sitting and singing when she started feeling numb and tingly in her arms and felt short of breath and felt very hot. Patient thinks she then passed out and was unconscious for short time. Patient has never had this happen before. Patient denied any chest pain or palpitations. Patient does have a remote history of A. fib and heart attack that required a stent 1-1/2 years ago. Patient currently on aspirin and Plavix. She denies recent illness. Patient states that currently she feels well. Prior similar symptoms: No PFSH PFSH Medical History Apical myocardial infarction (12/07/19) Atherosclerosis of coronary artery of [place] heart without angina pectoris History of ST elevation myocardial infarction (STEMI) (12/07/19) Ischemic cardiomyopathy Morbid (severe) obesity due to excess calories Paroxysmal atrial fibrillation (11/2019) Home Medications aspirin 81 mg PO DAILY@0800 tab 12/10/19 [Rx Last Taken Unknown] atorvastatin 40 mg tablet 40 mg PO QHS #90 tab 04/30/21 [Rx Last Taken Unknown] clopidogrel 75 mg tablet 75 mg PO QDAY #90 tab 04/30/21 [Rx Last Taken Unknown] metoprolol succinate 50 mg tablet,extended release 24 hr 50 mg PO DAILY #90 tab 04/30/21 [Rx Last Taken Unknown] potassium chloride 20 mEq tablet,extended release(part/cryst) 20 meq PO DAILY #90 tab 04/30/21 [Rx Last Taken Unknown] furosemide 40 mg tablet 40 mg PO DAILY #90 tab 06/05/21 [Rx Last Taken Unknown] lisinopril 2.5 mg tablet 2.5 mg PO DAILY #90 tab 06/05/21 [Rx Last Taken Unknown] Allergy/AdvReac Type Severity Reaction Status Date / Time No Known Allergies Allergy Verified 06/17/21 10:04 Family History Mother Cancer Brother CAD (coronary artery disease) stents Brother CAD (coronary artery disease) stents and CABG X 3 Surgical History History of coronary artery stent placement History of open reduction and internal fixation (ORIF) procedure Social History Smoking Status: Never smoker alcohol intake: never substance use type: does not use caffeine: Yes Type: coffee Number of servings: 4 ROS ROS ED ROS Narrative Syncope Constitutional Constitutional ED: Reports systems reviewed and no addt'l complaints, except as documented; Denies body ache(s), change in weight or chills Eyes Eyes: Denies acute decrease in peripheral vision, change in vision, double vision or loss of vision ENT ENT ED: Reports none; Denies ear pain, lip swelling, loss taste/smell, neck pain, otalgia or sore throat Cardiovascular Cardiovascular: Reports none; Denies abdominal pain, chest pain with activity, leg edema, lightheadedness, palpitations, rapid heart rate or syncope Respiratory/Chest Respiratory/Chest: Reports none; Denies change in mental status, dry cough, dyspnea, hemoptysis, shortness of breath at rest or shortness of breath with exertion Gastrointestinal Gastrointestinal: Reports none; Denies abdominal pain, change in stool character, diarrhea, hematemesis, hematochezia, melena, rectal bleeding or vomiting Genitourinary Genitourinary ED: Reports none; Denies abdominal discomfort, anuria, dysuria, genital pain or polyuria Musculoskeletal Musculoskeletal: Reports none; Denies arthralgias, back pain, difficulty walking, extremity pain, muscle weakness or myalgias Integumentary Reports none; Denies abscess or rash Neurologic Neurologic: Reports none; Denies abnormal gait, confusion, focal weakness, frequent falls, headache(s), loss of vision, numbness, paresthesias, radicular pain, vertigo or weakness Psychiatric Psychiatric: Reports systems reviewed and no addt'l complaints, except as documented and none; Denies behavioral changes, confusion, difficulty concentrating, hallucinations, suicidal ideation, tactile hallucinations or visual hallucinations Endocrine Endocrinology: Denies none, cold intolerance, excessive sweating, fatigue or heat intolerance Hematologic/Lymphatic Hematologic/Lymphatic: Reports none; Denies anemia, easy bleeding or easy bruising Allergic/Immunologic Allergic/Immunologic ED: Denies as per HPI, none, lip swelling, mouth swelling, throat swelling, tongue swelling or hives EXAM Physical Exam Const Vital Signs: 06/17/21 09:58 06/17/21 10:06 Temperature 97.8 F Temperature Source Oral Pulse Rate 61 Respiratory Rate 18 Respiratory Effort Normal Non-Labored Respiratory Pattern Normal Blood Pressure 136/59 H Blood Pressure Mean 84 Pulse Ox 94 Oxygen Delivery Method Room Air Positive well nourished and well developed General Appearance ED: well developed and NAD HEENT Reports TM's clear and moist mucous membranes normocephalic and atraumatic; Negative for trauma or tenderness Tympanic Membrane ED: Yes TM's clear Eyes PERRL and EOMs intact bilaterally General Eye ED: Negative for pale conjunctiva or scleral icterus Neck no lymphadenopathy, supple and no JVD General: Negative for tenderness Chest Wall inspection of chest normal and palpation of chest normal Chest: Negative for tenderness Resp normal respiratory effort and clear to auscultation bilaterally Effort and Inspection: Negative for respiratory distress or pain with movement Auscultation: Negative for rhonchi, wheezes or diminished lung sounds Cardio regular rate, regular rhythm, S1 normal heart sound, S2 normal heart sound and no murmurs Peripheral Pulses: pulses 2+ throughout GI normal to inspection, nondistended, normoactive bowel sounds, soft to palpation, non-tender, non-distended and no masses Back/Spine no CVA tenderness and no thoracic nor lumbar tenderness Extremity normal to inspection General Extremety ED: Negative for edema General Extremity: Negative for edema Neuro oriented x3, CN's II-XII intact bilaterally, no sensory deficits noted and gait normal Sensorium / Orientation: awake, alert, oriented to person, oriented to place and oriented to time Motor Exam: strength 5/5 throughout and strength abnormal Psych mental status grossly normal Skin no rashes or lesions noted and no wounds MDM MDM MDM Narrative Medical decision making narrative: Etiology of patient's syncope is unclear. She has been slightly bradycardic in the department. Clinically I suspect she may have had a vasovagal vagal episode. Patient will be admitted for observation. Lab Data Attestation: I reviewed the patient's lab results. Labs: Laboratory Results - last 24 hr 06/17/21 06/17/21 10:11 10:11 WBC 4.5 RBC 4.61 Hgb 14.2 Hct 42.8 MCV 92.8 MCH 30.8 MCHC 33.2 RDW Std Deviation 43.1 RDW Coeff of Elsa 12.7 Plt Count 221 MPV 10.3 Immature Gran % (Auto) 0.200 Neut % (Auto) 50.5 Lymph % (Auto) 34.1 [place] % (Auto) 9.1 Eos % (Auto) 4.6 Baso % (Auto) 1.5 H Absolute Neuts (auto) 2.3 Absolute Lymphs (auto) 1.54 Nucleated RBC % 0 Sodium 139 Potassium 3.9 Chloride 106 Carbon Dioxide 29.0 Anion Gap 4 L BUN 12 Creatinine 0.74 Estim Creat Clear Calc 77.58 Est GFR (MDRD) Af Amer 104 Est GFR (MDRD) Non-Af 86 BUN/Creatinine Ratio 16.3 Glucose 141 H Calcium 8.4 L Troponin I High Sens 4.5 EKG Initial EKG: Attestation: I personally reviewed and interpreted this EKG as follows: Comments: Sinus bradycardia with a ventricular rate of [address] changes. Prior EKG tracings: available for review Prior: Unchanged Discharge Plan Triage Chief Complaint: Syncope ED Provider: Ronny Beach Dx/Rx/DC Orders Clinical Impression: Syncope, Bradycardia Prescriptions: No Action lisinopril 2.5 mg tablet 2.5 mg PO DAILY Qty: 90 RF: 3 furosemide 40 mg tablet 40 mg PO DAILY Qty: 90 RF: 3 aspirin 81 MG tablet 81 mg PO DAILY@0800 RF: 0 atorvastatin 40 mg tablet 40 mg PO QHS Qty: 90 RF: 3 Hold Instructions: ? itching 11/15/2020 clopidogrel [Plavix] 75 mg tablet 75 mg PO QDAY Qty: 90 RF: 3 metoprolol succinate 50 mg tablet extended release 24 hr 50 mg PO DAILY Qty: 90 RF: 3 potassium chloride 20 mEq tablet,ER particles/crystals 20 meq PO DAILY Qty: 90 RF: 3 Primary Care Provider: Rich Roe Referrals: Rich Roe MD [Primary Care Provider] - Disposition Disposition: Acute Care Hospital [facility]
[2021-06-17 10:35] LABS: Absolute Lymphocyte Count 1.54 X10^3/uL (0.83-4.51); Absolute Neutrophil Count 2.3 X10^3/uL (2.0-7.7); Basophil# 0.07 X10^3/uL; Basophil% 1.5 % (0-1); Eosinophil# 0.21 X10^3/uL; Eosinophils% 4.6 % (0-5); Hematocrit 42.8 % (37-47); Hemoglobin 14.2 g/dL (12.0-15.0); Lymphocyte # 1.54 X10^3/ul (0.83-4.51); Lymphocyte % 34.1 % (19-41); Mean Corp Hgb Conc 33.2 g/dL (32-36); Mean Corpuscular Hgb 30.8 pg (27.0-32.0); Mean Corpuscular Volume 92.8 fL (81-99); Mean Platelet Vol. 10.3 fl (6.2-12.0); Monocyte# 0.41 X10^3/uL; Monocyte% 9.1 % (0-10); NRBC Flagged by Analyzer 0 % (0-5); Neutrophil # 2.28 X10^3/uL (2.7-7.7); Neutrophil % 50.5 % (47-70); Platelet Count 221 K/mm3 (150-450); RBC Distribution Width CV 12.7 % (11.6-14.6); RBC Distribution Width SD 43.1 fl (35.1-43.9); Red Blood Count 4.61 M/mm3 (4.2-5.4); White Blood Count 4.5 K/mm3 (4.4-11.0)
[2021-06-17 10:50] LABS: Anion Gap 4 (5-15); BUN 12 mg/dL (7-18); BUN/Creat Ratio 16.3 RATIO (10-20); Calcium,Total 8.4 mg/dL (8.5-10.1); Chloride 106 mmol/L (98-107); Creatinine, Serum 0.74 mg/dL (0.55-1.02); EST Glomerular Filtration Rate 86 mL/min (>60); Est Glom Filt Rate - Afr Amer 104 mL/min (>60); Estimated Creatinine Clearance 77.58 ml/min; Glucose 141 mg/dL (74-106); Potassium 3.9 mmol/L (3.5-5.1); Sodium Level 139 mmol/L (136-145); Troponin-I HS 4.5 pg/mL (3.0-53.7)
[2021-06-17] MEDS: 0.9% Normal Saline 1,000 ML 150 ML IV (11:07)
--- NOTE | 2021-06-17 12:55 | PCM.HP.STD ---
Documented by User: Aliza Marcus NP, [employer]ING T[employer] TECHNICIAN-C 06/17/21 13:39 HPI - General General Date of Admission: 06/17/21 HPI Narrative NICOLAS VANG, is a 60 F who presents to the emergency room due to episode of syncope. Patient states she was at [employer] today singing when she felt lightheaded. She does not remember anything after that however stated she was told she passed out. She denies history of syncope. She denies recent chest pain, shortness of breath. Patient states she did feel hot during muslim. She denies palpitations. She reports a history of atrial fibrillation and states she was asymptomatic when this was found. Patient states that she walks every morning and denies chest pain or shortness of breath. She has a past medical history of CAD with history of stent, ischemic cardiomyopathy, hypertension, hyperlipidemia, paroxysmal atrial fibrillation, morbid obesity. FOR[facility]LY [facility] Medical History Apical myocardial infarction (12/07/19) Atherosclerosis of coronary artery of [place] heart without angina pectoris History of ST elevation myocardial infarction (STEMI) (12/07/19) Ischemic cardiomyopathy Morbid (severe) obesity due to excess calories Paroxysmal atrial fibrillation (11/2019) Home Medications aspirin 81 mg PO DAILY@0800 tab 12/10/19 [Rx Last Taken 06/17/21] atorvastatin 40 mg tablet 40 mg PO QHS #90 tab 04/30/21 [Rx Last Taken 06/16/21] clopidogrel 75 mg tablet 75 mg PO QDAY #90 tab 04/30/21 [Rx Last Taken 06/17/21] metoprolol succinate 50 mg tablet,extended release 24 hr 50 mg PO DAILY #90 tab 04/30/21 [Rx Last Taken 06/17/21] potassium chloride 20 mEq tablet,extended release(part/cryst) 20 meq PO DAILY #90 tab 04/30/21 [Rx Last Taken 06/17/21] furosemide 40 mg tablet 40 mg PO DAILY #90 tab 06/05/21 [Rx Last Taken 06/17/21] lisinopril 2.5 mg tablet 2.5 mg PO DAILY #90 tab 06/05/21 [Rx Last Taken 06/17/21] Allergy/AdvReac Type Severity Reaction Status Date / Time No Known Allergies Allergy Verified 06/17/21 10:04 Family History (Updated 06/17/21 @ 12:56 by Aliza Marcus NP, [employer]ING T[employer] TECHNICIAN-C) Mother Cancer Brother CAD (coronary artery disease) stents Brother CAD (coronary artery disease) stents and CABG X 3 Father Cancer Surgical History History of coronary artery stent placement History of open reduction and internal fixation (ORIF) procedure Social History Smoking Status: Never smoker alcohol intake: never substance use type: does not use caffeine: Yes Type: coffee Number of servings: 4 ROS Constitutional Constitutional: Denies change in weight, chills, fatigue, fever(s) or weakness Cardiovascular Cardiovascular: Denies chest pain, edema, lightheadedness, palpitations or syncope Respiratory/Chest Respiratory/Chest: Denies cough, dyspnea, productive cough, shortness of breath at rest, shortness of breath with exertion or wheezing Gastrointestinal Gastrointestinal: Denies abdominal pain, constipation, diarrhea, nausea or vomiting Genitourinary Genitourinary: Denies burning urination, difficulty urinating, dysuria, hematuria, urinary frequency, urinary incontinence or urinary urgency Musculoskeletal Musculoskeletal: Denies back pain, joint pain or muscle weakness Integumentary Integumentary: Denies erythema, lesions, rash or wounds Neurologic Neurologic: Reports syncope; Denies abnormal speech, confusion, dizziness, focal weakness, numbness, paresthesias or seizure-like activity Psychiatric Psychiatric: Denies anxiety or depression Hematologic/Lymphatic Hematologic/Lymphatic: Denies anemia, easy bleeding or easy bruising Allergic/Immunologic Allergic/Immunologic: Denies hives or asthma Vital Signs Vital Signs Vital Signs: 06/17/21 09:58 06/17/21 10:06 06/17/21 11:06 Temperature 97.8 F Temperature Source Oral Pulse Rate 61 59 L Pulse Rate [Lying] Pulse Rate [Sitting] Pulse Rate [Standing] Respiratory Rate 18 15 Respiratory Effort Normal Non-Labored Respiratory Pattern Normal Blood Pressure 136/59 H 109/62 Blood Pressure [Lying] Blood Pressure [Sitting] Blood Pressure [Standing] Blood Pressure Mean 84 77 Blood Pressure Mean [Lying] Blood Pressure Mean [Sitting] Blood Pressure Mean [Standing] Blood Pressure Source Blood Pressure Position Blood Pressure Location Pulse Ox 94 97 Oxygen Delivery Method Room Air Room Air 06/17/21 11:07 06/17/21 11:52 06/17/21 11:58 Temperature 97.8 F 97.5 F L Temperature Source Oral Oral Pulse Rate 59 L 61 Pulse Rate [Lying] 55 L Pulse Rate [Sitting] 61 Pulse Rate [Standing] 60 Respiratory Rate 15 16 Respiratory Effort Respiratory Pattern Blood Pressure 109/62 108/59 L Blood Pressure [Lying] 109/62 Blood Pressure [Sitting] 105/71 Blood Pressure [Standing] 115/73 Blood Pressure Mean 77 75 Blood Pressure Mean [Lying] 77 Blood Pressure Mean [Sitting] 82 Blood Pressure Mean [Standing] 87 Blood Pressure Source Monitor Blood Pressure Position Semi-Fowlers Blood Pressure Location Right Arm Pulse Ox 97 99 Oxygen Delivery Method Room Air Room Air 06/17/21 12:34 Temperature Temperature Source Pulse Rate 55 L Pulse Rate [Lying] Pulse Rate [Sitting] Pulse Rate [Standing] Respiratory Rate Respiratory Effort Respiratory Pattern Blood Pressure Blood Pressure [Lying] Blood Pressure [Sitting] Blood Pressure [Standing] Blood Pressure Mean Blood Pressure Mean [Lying] Blood Pressure Mean [Sitting] Blood Pressure Mean [Standing] Blood Pressure Source Blood Pressure Position Blood Pressure Location Pulse Ox Oxygen Delivery Method Weight Weight: 232 lb 5.875 oz Body Mass Index (BMI) 37.5 Physical Exam Const alert, oriented x3 and no apparent distress Orientation / Consciousness: awake, oriented to person, oriented to place and oriented to time HEENT normocephalic and moist oral mucous membranes Eyes PERRL, EOMs intact bilaterally and conjunctivae normal Neck no lymphadenopathy Resp normal respiratory effort and clear to auscultation bilaterally Cardio regular rate, regular rhythm and no murmurs Peripheral Pulses: pulses 2+ throughout GI normal to inspection, nondistended, normoactive bowel sounds, non-tender and non-distended Extremity normal to inspection Skin no rashes or lesions noted Lesions: no lesions Rashes: no rashes Trauma: no lacerations or abrasions Neuro CN's II-XII intact bilaterally, no focal motor deficits, no sensory deficits noted and deep tendon reflexes 2+ bilaterally Psych mental status grossly normal and affect normal Results Lab / Micro Data Result Diagrams: 06/17/21 10:11 06/17/21 10:11 Labs: Laboratory Results - last 24 hr 06/17/21 10:11: WBC 4.5, RBC 4.61, Hgb 14.2, Hct 42.8, MCV 92.8, MCH 30.8, MCHC 33.2, RDW Std Deviation 43.1, RDW Coeff of Elsa 12.7, Plt Count 221, MPV 10.3, Immature Gran % (Auto) 0.200, Neut % (Auto) 50.5, Lymph % (Auto) 34.1, [place] % (Auto) 9.1, Eos % (Auto) 4.6, Baso % (Auto) 1.5 H, Absolute Neuts (auto) 2.3, Absolute Lymphs (auto) 1.54, Nucleated RBC % 0 06/17/21 10:11: Sodium 139, Potassium 3.9, Chloride 106, Carbon Dioxide 29.0, Anion Gap 4 L, BUN 12, Creatinine 0.74, Estim Creat Clear Calc 77.58, Est GFR (MDRD) Af Amer 104, Est GFR (MDRD) Non-Af 86, BUN/Creatinine Ratio 16.3, Glucose 141 H, Calcium 8.4 L, Troponin I High Sens 4.5 Assessment & Plan Assessment/Plan (1) Syncope: (2) Bradycardia: PLAN: 1. Syncope-initial troponin negative. Patient noted to be mildly bradycardic. Check orthostatic vitals. Echo November 2019 with EF 30%, evidence of diastolic dysfunction. Will repeat echo. 2. Bradycardia-mild. Home metoprolol regimen reduced. Monitor telemetry. 3. Chronic heart failure with reduced ejection fraction/ischemic cardiomyopathy 4. CAD with history of stent to left anterior descending artery, known residual right coronary artery stenosis-follows with cardiology. Continue aspirin, statin, Plavix, metoprolol, lisinopril. 5. Paroxysmal atrial fibrillation-continue metoprolol. Not on anticoagulation. 6. Hypertension-stable, continue lisinopril, metoprolol, Lasix 7. Hyperlipidemia-continue statin. 8. Morbid obesity-encouraged diet and lifestyle modifications. DVT prophylaxis-Lovenox subcu. This patient was seen by DANNIE Pacheco under the supervision of Dr. Perdomo. Documented by User: Dr. Yoel Perdomo, 06/17/21 15:16 HPI - General General Date of Admission: 06/17/21 [facility] Medical History Apical myocardial infarction (12/07/19) Atherosclerosis of coronary artery of [place] heart without angina pectoris History of ST elevation myocardial infarction (STEMI) (12/07/19) Ischemic cardiomyopathy Morbid (severe) obesity due to excess calories Paroxysmal atrial fibrillation (11/2019) Home Medications aspirin 81 mg PO DAILY@0800 tab 12/10/19 [Rx Last Taken 06/17/21] atorvastatin 40 mg tablet 40 mg PO QHS #90 tab 04/30/21 [Rx Last Taken 06/16/21] clopidogrel 75 mg tablet 75 mg PO QDAY #90 tab 04/30/21 [Rx Last Taken 06/17/21] metoprolol succinate 50 mg tablet,extended release 24 hr 50 mg PO DAILY #90 tab 04/30/21 [Rx Last Taken 06/17/21] potassium chloride 20 mEq tablet,extended release(part/cryst) 20 meq PO DAILY #90 tab 04/30/21 [Rx Last Taken 06/17/21] furosemide 40 mg tablet 40 mg PO DAILY #90 tab 06/05/21 [Rx Last Taken 06/17/21] lisinopril 2.5 mg tablet 2.5 mg PO DAILY #90 tab 06/05/21 [Rx Last Taken 06/17/21] Allergy/AdvReac Type Severity Reaction Status Date / Time No Known Allergies Allergy Verified 06/17/21 10:04 Family History (Updated 06/17/21 @ 12:56 by Aliza Marcus NP, [employer]ING [employer] TECHNICIAN-C) Mother Cancer Brother CAD (coronary artery disease) stents Brother CAD (coronary artery disease) stents and CABG X 3 Father Cancer Surgical History History of coronary artery stent placement History of open reduction and internal fixation (ORIF) procedure Social History Smoking Status: Never smoker alcohol intake: never substance use type: does not use caffeine: Yes Type: coffee Number of servings: 4 Results Lab / Micro Data Result Diagrams: 06/17/21 10:11 06/17/21 10:11 Charges/Coding Addendum Addendum: Patient was seen and examined today independently of Aliza Marcus, she was seen in [employer] today and got lightheaded and fainted for a brief period of time, she awoke uneventfully and was brought to the emergency room for evaluation. Work-up in the emergency room was remarkable for a low pulse rate of 55 but the patient is on beta-blockers and has a history of ischemic heart disease. Her last stress test however did not show any evidence of reversible ischemia. Patient has never had any syncopal episodes before and the patient's last echocardiogram done over a year ago did not show any valvular heart disease. On examination she appeared in good health and spirits, she does not appear to be in any distress. Vital signs as documented. Skin warm and dry and without overt rashes. Neck without JVD, thyroid appears normal, trachea is midline, neck is supple. Lungs clear, normal air movement was noted. Heart exam notable for regular rhythm, normal sounds and absence of murmurs, rubs or gallops. Abdomen unremarkable and without evidence of organomegaly, masses, or abdominal aortic enlargement, bowel sounds are present in all 4 quadrants, no abdominal tenderness was noted. Extremities nonedematous, no cyanosis was noted, no clubbing was noted. Neuro: Cranial nerves II through XII are grossly intact, no focal motor deficits were noted, sensation to light touch and pinprick is intact, motor exam 5/5 throughout. Psych: Patient is alert and oriented x3, she does not appear anxious or depressed, she does not appear agitated. Patient will be placed in observation status on PCU and will be monitored. She was due to have an echocardiogram done in the next couple of months by cardiology-she follows up with Dr. Dorman, this will be performed tomorrow. I told her the only other test that I could recommend if she wanted to be thorough was to have a 30-day Holter monitor but because this is her first episode of syncope, I told her that if her echocardiogram was unremarkable tomorrow, I probably would not recommend a 30-day Holter at this time. She said she will talk to her daughter about how to proceed regarding the Holter monitor. I have decided to lower the patient's beta-dania dosage-she will be on metoprolol tartrate 12-1/2 mg twice daily here in the hospital, when she goes home she can break her metoprolol succinate 50 mg in half and take 25 mg daily. I have reviewed Aliza Marcus's history and physical including her medical assessment and plan of care and endorse it. Visit Charges OBSV E&M: 60220 Initial observation care L3
--- NOTE | 2021-06-17 13:31 | ECHOCS_ITS ---
Reason For Study: CHF Procedure This was a 2D Doppler, Color Flow transthoracic echocardiogram. The study was technically difficult. Exam performed portable in patient room. Left Ventricle Mildly dilated left ventricle. The estimated ejection fraction is EF 45-50 %. Right Ventricle Normal right ventricle. Normal systolic function. Atria Normal left atrium. Normal right atrium. Mitral Valve The mitral valve is structurally normal. No prolapse or stenosis seen. Trivial eccentric mitral valve insufficiency. Tricuspid Valve Normal tricuspid valve. Trivial tricuspid valve insufficiency. Aortic Valve Normal aortic valve. Pulmonic Valve The pulmonic valve is not well visualized. Great Vessels Normal aortic root. Pericardium/Pleural No pericardial effusion. Medication Diluted definity 3ml given slow IV push to enhance endocardial definition. MMode/2D Measurements & Calculations LVIDd: 5.1 cm IVSd: 0.85 cm Ao root diam: 3.0 cm LVIDs: 3.6 cm LVPWd: 0.87 cm RVDd: 3.4 cm FS: 30.1 % LAV(MOD-bp): 48.4 ml LVAd ap4: 38.5 cm2 SV(MOD-sp4): 78.2 ml LAV(MOD-bp) Indexed: 22.7 ml/m2 LVLd ap4: 8.8 cm LAV(MOD-sp2): 42.9 ml EDV(MOD-sp4): 144.1 ml LAV(MOD-sp4): 49.4 ml EDV(sp4-el): 143.5 ml LVAs ap4: 24.5 cm2 LVLs ap4: 7.5 cm ESV(MOD-sp4): 65.9 ml ESV(sp4-el): 68.3 ml EF(MOD-sp4): 54.3 % EF(sp4-el): 52.4 % SV(sp4-el): 75.2 ml LA A4 area: 17.5 cm2 LA dimension(2D): 3.8 cm RA A4 area: 14.6 cm2 Time Measurements MV dec time: 0.23 sec Doppler Measurements & Calculations MV E max spenser: 106.9 cm/sec Lat Peak E' Spenser: 9.9 cm/sec Med Peak E' Spenser: 8.6 cm/sec MV A max spenser: 63.7 cm/sec E/E' lat: 10.8 E/E' med: 12.4 MV E/A: 1.7 Ao V2 max: 151.9 cm/sec LV V1 max: 111.0 cm/sec PA V2 max: 112.1 cm/sec Ao max P.2 mmHg LV V1 max P.9 mmHg TR max spenser: 283.3 cm/sec TR max P.3 mmHg ECHO/Echo Complete W/ Contrast Interpretation Summary The estimated ejection fraction is EF 45-50 %. Mild LV systolic Dysfunction with sammi-apical Hyhpokiesia. Ordering Physician: Aliza Marcus Referring Physician: DEVAN DAWN Performed By: Delia Gutiérrez RDCS
[2021-06-17] MEDS: Metoprolol Tartrate 25 MG Tablet 12.5 MG PO (21:10)
[2021-06-17] MEDS: Atorvastatin Calcium 40 MG Tablet PO (21:10)
[2021-06-18] VITALS (9 sets, daily range): BP systolic 111–117; BP diastolic 55–61; PULSE 43–61; RESP 12–18; TEMP 36.6–36.9; O2SAT 95–98
[2021-06-18] MEDS: 0.9% Saline Lock 10 ML Syringe IV (05:18)
[2021-06-18] MEDS: Enoxaparin 40 MG/0.4 ML Syringe SC (05:18)
[2021-06-18] MEDS: Potassium Chloride Oral Tablet 20 MEQ PO (08:46)
[2021-06-18] MEDS: Aspirin E.C. 81 MG Tablet PO (08:46)
[2021-06-18] MEDS: Metoprolol Tartrate 25 MG Tablet 12.5 MG PO (11:05)
[2021-06-18] MEDS: Clopidogrel Bisulfate 75 MG Tablet PO (11:06)
[2021-06-18] MEDS: Lisinopril 2.5 MG Tablet PO (11:06)
--- NOTE | 2021-06-18 11:58 | DCINST_ITS ---
Discharge Instructions Diet Discharge Diet: Low fat / Low cholesterol and 2000 mg Sodium Diet Activity Discharge Activity: Return to Normal Activity Dressing / Incision Call your doctor if you observe: Shortness of breath, Dizziness and Chest pain Follow Up Care Test Results: Test results from this visit will be discussed in further detail at your follow-up appointment, if applicable. Discharge Plan Admission Admit Date/Time: 06/17/21 11:19 Primary Reason for Your Visit: Syncope Attending Provider: Eric Bennett Primary Care Provider: Rich Roe Instructions Additional Instructions / Restrictions: Follow-up with cardiology in 2 weeks, then continue scheduled appointment in November. May see [employer] C[employer]TER CLUTCH/PA in 2 weeks. Discharge Orders/Prescriptions Prescriptions: New metoprolol tartrate 25 mg Tablet 12.5 mg PO BID Qty: 60 RF: 0 Continued lisinopril 2.5 mg tablet 2.5 mg PO DAILY Qty: 90 RF: 3 aspirin 81 MG tablet 81 mg PO DAILY@0800 RF: 0 atorvastatin 40 mg tablet 40 mg PO QHS Qty: 90 RF: 3 Hold Instructions: ? itching 11/15/2020 clopidogrel [Plavix] 75 mg tablet 75 mg PO QDAY Qty: 90 RF: 3 potassium chloride 20 mEq tablet,ER particles/crystals 20 meq PO DAILY Qty: 90 RF: 3 Changed furosemide 40 mg tablet 20 mg PO DAILY Qty: 90 RF: 3 Discontinued metoprolol succinate 50 mg tablet extended release 24 hr 50 mg PO DAILY Qty: 90 RF: 3 Referrals / Follow Up: Rich Roe MD [Primary Care Provider] - In 1 Week Bibi Swanson NP, TO[employer] CUTTER CLUTCH-C [Nurse Practitioner] - See Referral Note (As scheduled 12/06/2021) Disposition Disposition (needs filled in before D/C Order can be placed): Home, Self Care
--- NOTE | 2021-06-18 14:41 | PHA.DC.MC ---
Pharmacy Service has performed discharge medication reconciliation and counseling for this patient. 1. METOPROLOL TARTRATE 12.5MG PO BID The patient's discharge medication list was reviewed for discrepancies and discrepancies were resolved. Home Medications aspirin 81 mg PO DAILY@0800 tab 12/10/19 atorvastatin 40 mg tablet 40 mg PO QHS #90 tab 04/30/21 clopidogrel 75 mg tablet 75 mg PO QDAY #90 tab 04/30/21 potassium chloride 20 mEq tablet,extended release(part/cryst) 20 meq PO DAILY #90 tab 04/30/21 furosemide 40 mg tablet 40 mg PO DAILY #90 tab 06/05/21 lisinopril 2.5 mg tablet 2.5 mg PO DAILY #90 tab 06/05/21 metoprolol tartrate 12.5 mg PO BID #60 tab 06/18/21 The patient was counseled on the following discharge medications and changes in medications for homegoing were reviewed. The Reason for Use, instructions for use, and potential side effects were reviewed for all new medications. The patient's questions regarding all of their medications were answered. The patient was able to verbally demonstrate an understanding of their discharge medications.
--- NOTE | 2021-06-18 14:55 | PCM.DC.SUM ---
Documented by User: Aliza Marcus NP, TOP PRECIPITATOR OPERATOR HELPER-C 06/18/21 15:03 Providers Date of Admission: 06/17/21 Date of Discharge: 06/18/21 Primary Care Physician: Dr. Devan Roe MD Reason For Visit: SYNCOPE Diagnosis Discharge Diagnosis (1) Syncope: Status: Acute Code(s): R55 - Syncope and collapse (2) Bradycardia: Status: Acute Code(s): R00.1 - Bradycardia, unspecified Medications at Discharge Home Medications aspirin 81 mg PO DAILY@0800 tab 12/10/19 atorvastatin 40 mg tablet 40 mg PO QHS #90 tab 04/30/21 clopidogrel 75 mg tablet 75 mg PO QDAY #90 tab 04/30/21 potassium chloride 20 mEq tablet,extended release(part/cryst) 20 meq PO DAILY #90 tab 04/30/21 lisinopril 2.5 mg tablet 2.5 mg PO DAILY #90 tab 06/05/21 furosemide 20 mg PO DAILY #90 tab 06/18/21 metoprolol tartrate 12.5 mg PO BID #60 tab 06/18/21 Hospital Course Operations None Procedures 2-D Echocardiogram Summary of Care Provided Minutes Spent on Discharge: 35 Hospital Course: Patient is a 60-year-old female admitted 06/17/2021 due to syncope. 1. Syncope-suspect vasovagal. Initial troponin negative. Patient noted to be mildly bradycardic. Orthostatic vitals negative. Echo November 2019 with EF 30%, evidence of diastolic dysfunction. Repeat echocardiogram demonstrates an EF of 45 to 50%. Follow-up with cardiology in 2 weeks. 2. Bradycardia-mild. Home metoprolol regimen reduced. 3. Chronic heart failure with reduced ejection fraction/ischemic cardiomyopathy-echo with improved EF. Continue Lasix 20 mg daily. 4. CAD with history of stent to left anterior descending artery, known residual right coronary artery stenosis-follows with cardiology. Continue aspirin, statin, Plavix, metoprolol, lisinopril. 5. Paroxysmal atrial fibrillation-continue metoprolol. Not on anticoagulation. 6. Hypertension-stable, continue lisinopril, metoprolol, Lasix. 7. Hyperlipidemia-continue statin. 8. Morbid obesity-encouraged diet and lifestyle modifications. Physical Exam Const alert, oriented x3 and no apparent distress Orientation / Consciousness: awake, oriented to person, oriented to place and oriented to time HEENT normocephalic and moist oral mucous membranes Eyes PERRL, EOMs intact bilaterally and conjunctivae normal Neck no lymphadenopathy Resp normal respiratory effort and clear to auscultation bilaterally Cardio regular rate, regular rhythm and no murmurs Peripheral Pulses: pulses 2+ throughout GI normal to inspection, nondistended, normoactive bowel sounds, non-tender and non-distended Extremity normal to inspection Skin no rashes or lesions noted Lesions: no lesions Rashes: no rashes Trauma: no lacerations or abrasions Neuro CN's II-XII intact bilaterally, no focal motor deficits, no sensory deficits noted and deep tendon reflexes 2+ bilaterally Psych mental status grossly normal and affect normal Patient seen and examined prior to discharge. Physical assessment as noted above. Patient is stable for discharge with follow up recommendations as noted above. This patient was seen by DANNIE Pacheco under the supervision of Dr. Bennett. Weight / BMI Weight Weight: 232 lb 5.875 oz Body Mass Index (BMI) 37.5 ABG / Lab / Microbiology Data Result Diagrams: 06/17/21 10:11 06/17/21 10:11 Radiography Diagnostic Testing: Radiology Impression Echocardiogram 06/17/21 13:31 Interpretation Summary The estimated ejection fraction is EF 45-50 %. Mild LV systolic Dysfunction with sammi-apical [place]hp[place]ies[place]. Ordering Physician: Aliza Marcus Referring Physician: DEVAN ROE Performed By: Delia Gutiérrez RDCS D/C Instructions Discharge Diet: Low fat / Low cholesterol and 2000 mg Sodium Diet Call your doctor if you observe: Shortness of breath, Dizziness and Chest pain Meaningful Use Info Meaningful Use Diagnoses (Choose all that apply): None applicable Discharge Plan Admission Admit Date/Time: 06/17/21 11:19 Primary Reason for Your Visit: Syncope Attending Provider: Eric Bennett Primary Care Provider: Devan Roe Instructions Additional Instructions / Restrictions: Follow-up with cardiology in 2 weeks, then continue scheduled appointment in November. May see TOP PRECIPITATOR OPERATOR HELPER/PA in 2 weeks. Discharge Orders/Prescriptions Prescriptions: New metoprolol tartrate 25 mg Tablet 12.5 mg PO BID Qty: 60 RF: 0 Continued lisinopril 2.5 mg tablet 2.5 mg PO DAILY Qty: 90 RF: 3 aspirin 81 MG tablet 81 mg PO DAILY@0800 RF: 0 atorvastatin 40 mg tablet 40 mg PO QHS Qty: 90 RF: 3 Hold Instructions: ? itching 11/15/2020 clopidogrel [Plavix] 75 mg tablet 75 mg PO QDAY Qty: 90 RF: 3 potassium chloride 20 mEq tablet,ER particles/crystals 20 meq PO DAILY Qty: 90 RF: 3 Changed furosemide 40 mg tablet 20 mg PO DAILY Qty: 90 RF: 3 Discontinued metoprolol succinate 50 mg tablet extended release 24 hr 50 mg PO DAILY Qty: 90 RF: 3 Referrals / Follow Up: Devan Roe MD [Primary Care Provider] - In 1 Week Bibi Swanson NP, TOP PRECIPITATOR OPERATOR HELPER-C [Nurse Practitioner] - See Referral Note (As scheduled 12/06/2021) Disposition Disposition (needs filled in before D/C Order can be placed): Home, Self Care Documented by User: Dr. Eric Bennett DO 06/18/21 15:13 Providers Date of Admission: 06/17/21 Reason For Visit: SYNCOPE Medications at Discharge Home Medications aspirin 81 mg PO DAILY@0800 tab 12/10/19 atorvastatin 40 mg tablet 40 mg PO QHS #90 tab 04/30/21 clopidogrel 75 mg tablet 75 mg PO QDAY #90 tab 04/30/21 potassium chloride 20 mEq tablet,extended release(part/cryst) 20 meq PO DAILY #90 tab 04/30/21 lisinopril 2.5 mg tablet 2.5 mg PO DAILY #90 tab 06/05/21 furosemide 20 mg PO DAILY #90 tab 06/18/21 metoprolol tartrate 12.5 mg PO BID #60 tab 06/18/21 Hospital Course Operations None Procedures 2-D Echocardiogram Summary of Care Provided Hospital Course: 60-year-old female had a syncopal episode while in hinduism. Is currently rough around 9 AM and prior to that patient had a peach and some water which is her typical breakfast not out of the ordinary. Patient was sitting felt flushed nauseated and then she had passed out. Patient under work-up including echocardiogram was unremarkable. Echo showed an EF of 45 to 30% but improved from November 2019 were EF was 30% at that time. Is likely a vasovagal syncope perhaps related with nausea but no cardiac etiology was identified. Patient has not had this happen before. I do not feel additional work-up is necessary at this time unless this becomes more of recurrent issue. Physical Exam Const alert Resp normal respiratory effort, no retractions, no use of accessory muscles and clear to auscultation bilaterally Cardio regular rate, regular rhythm, S1 normal heart sound and S2 normal heart sound GI normal to inspection, nondistended, normoactive bowel sounds, non-tender and non-distended ABG / Lab / Microbiology Data Result Diagrams: 06/17/21 10:11 06/17/21 10:11 Discharge Plan Admission Admit Date/Time: 06/17/21 11:19 Primary Reason for Your Visit: Syncope Attending Provider: Eric Bennett Primary Care Provider: Devan Roe Instructions Additional Instructions / Restrictions: Follow-up with cardiology in 2 weeks, then continue scheduled appointment in November. May see TOP PRECIPITATOR OPERATOR HELPER/PA in 2 weeks. Discharge Orders/Prescriptions Prescriptions: New metoprolol tartrate 25 mg Tablet 12.5 mg PO BID Qty: 60 RF: 0 Continued lisinopril 2.5 mg tablet 2.5 mg PO DAILY Qty: 90 RF: 3 aspirin 81 MG tablet 81 mg PO DAILY@0800 RF: 0 atorvastatin 40 mg tablet 40 mg PO QHS Qty: 90 RF: 3 Hold Instructions: ? itching 11/15/2020 clopidogrel [Plavix] 75 mg tablet 75 mg PO QDAY Qty: 90 RF: 3 potassium chloride 20 mEq tablet,ER particles/crystals 20 meq PO DAILY Qty: 90 RF: 3 Changed furosemide 40 mg tablet 20 mg PO DAILY Qty: 90 RF: 3 Discontinued metoprolol succinate 50 mg tablet extended release 24 hr 50 mg PO DAILY Qty: 90 RF: 3 Referrals / Follow Up: Devan Roe MD [Primary Care Provider] - In 1 Week Bibi Swanson NP, TOP PRECIPITATOR OPERATOR HELPER-C [Nurse Practitioner] - See Referral Note (As scheduled 12/06/2021) Disposition Disposition (needs filled in before D/C Order can be placed): Home, Self Care Charges/Coding Visit Charges OBSV E&M: 84930 Observation care discharge
== END 2021-06-18 11:58 | disposition home or self-care (01) ==
LOC: ED 11:07 → PCU 12:40
PROVIDERS: Admitting Provider Internal Medicine; Emergency Provider Emergency Medicine; PCP Family Medicine
DX: R55 Syncope and collapse (principal); R00.1 Bradycardia, unspecified; R06.02 Shortness of breath; I25.2 Old myocardial infarction; I25.5 Ischemic cardiomyopathy; I25.10 Atherosclerotic heart disease of native coronary artery without angina pectoris; E66.01 Morbid (severe) obesity due to excess calories; I48.0 Paroxysmal atrial fibrillation; I11.0 Hypertensive heart disease with heart failure; I50.22 Chronic systolic (congestive) heart failure; E78.5 Hyperlipidemia, unspecified; Z68.37 Body mass index [BMI] 37.0-37.9, adult; Z95.5 Presence of coronary angioplasty implant and graft; Z79.899 Other long term (current) drug therapy; Z79.02 Long term (current) use of antithrombotics/antiplatelets; Z79.82 Long term (current) use of aspirin
CPT/HCPCS: 80048; 84484; 85025; 93005; 93306; 96360; 96372; 99218; 99285; J7030; Q9957; A4216; C8929; G0378; J3490

== ENCOUNTER → 2021-08-01 06:54 | Outpatient (CLI) | payer SELFPAY, OTHER ==
[2020-01-19 08:47] VITALS: BMI 37.5
--- NOTE | 2021-08-01 13:49 | STRESSREP ---
Stress Test Report Exercise myocardial perfusion stress test. 60-year-old lady with a history of coronary disease status post anteroapical myocardial infarction in December 2019. Stress protocol: Resting EKG demonstrates normal sinus rhythm with a rate of 61 bpm normal intervals are noted resting blood pressure is 124/70 mmHg. The patient exercised according to the regular James protocol for total duration of 4 minutes. The maximum heart rate attained was 169 bpm which was 104% of max infected heart rate the maximum workload was 6.9 metabolic equivalents. Patient completed 1 minute into stage II of the James protocol. At rest there were no ST or T wave changes noted to suggest ischemia and at peak exercise upsloping ST changes only were noted with did not meet the criteria for ischemia. The test was terminated due to dyspnea. At rest there were no ST or T wave changes noted to suggest ischemia. Myocardial perfusion protocol. 14.0 mCi of technetium 99m sestamibi was injected at rest. Patient exercised according to regular James protocol for 4 minutes and at peak exercise 44.0 mCi of technetium 99m sestamibi was injected stress images were obtained stress and rest images were reconstructed and compared in the short axis vertical long horizontal long axis. Gated images were also obtained. Perfusion SPECT analysis: Review of the stress images demonstrate normal uptake of tracer noted in the mid and basal anterior wall, septum, lateral wall, and inferior wall. The distal anterior wall and apex had a perfusion defect present. The resting images demonstrated a similar pattern. The above was suggestive of a previous anterior apical infarct with no evidence of ischemia noted. Gated SPECT analysis: The gated ejection fraction is 58%. Conclusion: Normal exercise myocardial perfusion stress test at a moderate workload. Previous apical infarct noted. Preserved ejection fraction.
== END ==
PROVIDERS: PCP Family Medicine; Referring Provider Nurse Practitioner Gerontology; Visit Provider Nurse Practitioner Gerontology
DX: R06.00 Dyspnea, unspecified (principal); I25.10 Atherosclerotic heart disease of native coronary artery without angina pectoris
CPT/HCPCS: 78452; 93017; A9500

== ENCOUNTER → 2024-03-22 | Outpatient (CLI) | payer OTHER, SELFPAY ==
[2020-01-19 08:47] VITALS: BMI 37.5
[2024-03-22 14:14] LABS: Absolute Lymphocyte Count 1.73 X10^3/uL (0.83-4.51); Absolute Neutrophil Count 3.5 X10^3/uL (2.0-7.7); Basophil# 0.04 X10^3/uL; Basophil% 0.7 % (0-1); Eosinophil# 0.25 X10^3/uL; Eosinophils% 4.2 % (0-5); Hematocrit 40.5 % (37-47); Hemoglobin 13.4 g/dL (12.0-15.0); Lymphocyte # 1.73 X10^3/ul (0.83-4.51); Lymphocyte % 29.3 % (19-41); Mean Corp Hgb Conc 33.1 g/dL (32-36); Mean Corpuscular Hgb 30.5 pg (27.0-32.0); Mean Platelet Vol. 10.4 fl (6.2-12.0); Monocyte# 0.41 X10^3/uL; Monocyte% 6.9 % (0-10); NRBC Flagged by Analyzer 0 % (0-5); Neutrophil # 3.46 X10^3/uL (2.7-7.7); Neutrophil % 58.6 % (47-70); Platelet Count 282 K/mm3 (150-450); RBC Distribution Width CV 12.8 % (11.6-14.6); RBC Distribution Width SD 43.5 fl (35.1-43.9); White Blood Count 5.9 K/mm3 (4.4-11.0)
[2024-03-22 14:40] LABS: AST(SGOT) 26 U/L (15-37); Alanine Aminotransfer ALT/SGPT 30 U/L (13-56); Albumin, Serum 3.5 g/dL (3.2-5.0); Alkaline Phosphatase 94 U/L (45-117); Anion Gap 6 (5-15); BUN 9 mg/dL (7-18); BUN/Creat Ratio 11.1 RATIO (10-20); Bilirubin, Direct 0.12 mg/dL (0.00-0.30); Calcium,Total 8.7 mg/dL (8.5-10.1); Chloride 108 mmol/L (98-107); Cholesterol 124 mg/dL (200); Creatinine, Serum 0.81 mg/dL (0.55-1.02); EST Glomerular Filtration Rate 76 mL/min (>60); Est Glom Filt Rate - Afr Amer 92 mL/min (>60); Glucose 102 mg/dL (74-106); High Density Lipoprotein 45 mg/dL; Potassium 3.6 mmol/L (3.5-5.1); Protein, Total 7.5 g/dL (6.4-8.2); Sodium Level 142 mmol/L (136-145); Thyroid Stim Hormone (TSH) 0.52 uIU/mL (0.358-3.74); Triglycerides 147 mg/dL; Very Low Density Lipoprotein 29 mg/dL (5-40)
== END | disposition home or self-care (01) ==
PROVIDERS: PCP Nurse Practitioner Family; Referring Provider Nurse Practitioner Gerontology; Visit Provider Nurse Practitioner Gerontology
DX: E78.2 Mixed hyperlipidemia (principal); R53.83 Other fatigue
CPT/HCPCS: 36415; 80048; 80061; 80076; 84443; 85025

== ENCOUNTER → 2025-06-27 | Outpatient (CLI) | payer OTHER, SELFPAY ==
[2020-01-19 08:47] VITALS: BMI 37.5
[2025-06-27 14:22] LABS: Hematocrit 39.6 % (37-47); Hemoglobin 13.1 g/dL (12.0-15.0); Immature Granulocytes Count 0.020 X10^3/uL (0.0-0.0); Mean Corp Hgb Conc 33.1 g/dL (32-36); Mean Corpuscular Volume 91.7 fL (81-99); Mean Platelet Vol. 10.4 fl (6.2-12.0); NRBC Flagged by Analyzer 0 % (0-5); Platelet Count 263 K/mm3 (150-450); RBC Distribution Width CV 13.0 % (11.6-14.6); RBC Distribution Width SD 44.2 fl (35.1-43.9); Red Blood Count 4.32 M/mm3 (4.2-5.4); White Blood Count 6.5 K/mm3 (4.4-11.0)
[2025-06-27 15:15] LABS: Anion Gap 12 (5-15); BUN 12 mg/dL (4-19); BUN/Creat Ratio 15.9 RATIO (10-20); Calcium,Total 8.8 mg/dL (7.6-11.0); Carbon Dioxide 25.3 mmol/L (21.0-32.0); Chloride 104 mmol/L (98-108); Glucose 111 mg/dL (70-99); Potassium 3.6 mmol/L (3.3-5.1); Pro- Brain NATRIURETIC PEPTIDE 174 pg/mL (<=900)
== END | disposition home or self-care (01) ==
LOC: LAB 13:36
PROVIDERS: PCP Family Medicine; Referring Provider Nurse Practitioner Family; Visit Provider Nurse Practitioner Family
DX: R06.00 Dyspnea, unspecified (principal); I25.5 Ischemic cardiomyopathy; Z95.5 Presence of coronary angioplasty implant and graft
CPT/HCPCS: 36415; 80048; 83880; 85025

== ENCOUNTER → 2025-07-27 | Outpatient (CLI) | payer SELFPAY, OTHER ==
[2020-01-19 08:47] VITALS: BMI 37.5
--- NOTE | 2025-07-27 12:46 | ECHOCS_ITS ---
Reason For Study Reason For Study: CHF, COMPARE EF to EF of 2020. Procedure This was a 2D Doppler, Color Flow transthoracic echocardiogram. Contrast injection was performed. Exam performed in department. Left Ventricle Normal LV size. Left ventricular systolic function is normal. The left ventricular ejection fraction is 55 %. Stage 1 diastolic dysfunction. Inferior [place] : Akinetic. Anterior [place] : Hypokinetic. Septal [place] : Akinetic. Mid-anteroseptal : Hypokinetic. There are regional wall motion abnormalities as specified. Right Ventricle Normal RV size. Normal systolic function. Atria Normal left atrium. Normal right atrium. Mitral Valve The mitral valve is structurally normal. No prolapse or stenosis seen. Trivial mitral valve insufficiency. Tricuspid Valve Normal tricuspid valve. Mild (1+) tricuspid valve insufficiency. Unable to estimate RV systolic pressure due to insufficient tricuspid regurgitant envelope. Aortic Valve Trisinus/trileaflet aortic valve. Pulmonic Valve The pulmonic valve is not well visualized. Great Vessels Normal sized aortic root. Pericardium/Pleural No pericardial effusion. Medication 22 gauge I.V. with prn adaptor inserted into left arm. Diluted definity 1.0ml given slow IV push to enhance endocardial definition. MMode/2D Measurements & Calculations LVIDd: 4.9 cm IVSd: 0.86 cm Ao root diam: 2.9 cm LVIDs: 3.1 cm LVPWd: 0.90 cm RVDd: 3.7 cm FS: 37.7 % LAV(MOD-bp): 50.6 ml LVAd ap4: 39.3 cm2 LVAd ap2: 33.2 cm2 LAV(MOD-bp) Indexed: 24.7 ml/m2 LVLd ap4: 8.8 cm LVLd ap2: 8.8 cm LAV(MOD-sp2): 44.7 ml EDV(MOD-sp4): 149.5 ml EDV(MOD-sp2): 103.4 ml LAV(MOD-sp4): 52.1 ml EDV(sp4-el): 149.1 ml EDV(sp2-el): 106.4 ml LVAs ap4: 25.8 cm2 LVAs ap2: 22.3 cm2 LVLs ap4: 7.7 cm LVLs ap2: 7.9 cm ESV(MOD-sp4): 71.7 ml ESV(MOD-sp2): 51.4 ml ESV(sp4-el): 73.4 ml ESV(sp2-el): 53.4 ml EF(MOD-sp4): 52.0 % EF(MOD-sp2): 50.3 % EF(sp4-el): 50.7 % SV(MOD-sp4): 77.7 ml SV(MOD-sp2): 52.0 ml SV(sp4-el): 75.6 ml SI(MOD-sp4): 37.9 ml/m2 SI(MOD-sp2): 25.3 ml/m2 LA A4 area: 17.8 cm2 LA dimension(2D): 4.1 cm RA A4 area: 16.0 cm2 TAPSE: 3.3 cm Time Measurements MV dec time: 0.21 sec Doppler Measurements & Calculations MV E max spenser: 94.5 cm/sec Lat Peak E' Spenser: 9.5 cm/sec Med Peak E' Spenser: 14.5 cm/sec MV A max spenser: 60.8 cm/sec E/E' lat: 10.0 E/E' med: 6.5 MV E/A: 1.6 Ao V2 max: 142.4 cm/sec LV V1 max: 83.2 cm/sec PA V2 max: 123.1 cm/sec Ao max P.1 mmHg LV V1 max P.8 mmHg PA V2 mean: 79.4 cm/sec Ao V2 mean: 98.7 cm/sec LV V1 mean P.7 mmHg PA V2 VTI: 24.9 cm Ao mean P.3 mmHg LV V1 mean: 64.1 cm/sec Ao V2 VTI: 31.1 cm LV V1 VTI: 20.2 cm AV (velocity ratio): 0.65 ECHO/Echo Complete W/ Contrast Interpretation Summary The left ventricular ejection fraction is 55 %. Stage 1 diastolic dysfunction. There are regional wall motion abnormalities as specified. Mild (1+) tricuspid valve insufficiency. Compared to previous study, the LV function is similar. Contrast injection was performed. Ordering Physician: Jake Mas Referring Physician: Trinidad Ruiz Performed By: Gloria Easley, PALAK, RVT
== END | disposition home or self-care (01) ==
LOC: CVS 12:42
PROVIDERS: PCP Family Medicine; Referring Provider Nurse Practitioner Family; Visit Provider Nurse Practitioner Family
DX: I25.5 Ischemic cardiomyopathy (principal); I50.30 Unspecified diastolic (congestive) heart failure
CPT/HCPCS: 93306; Q9957; C8929